=== PATIENT | male | born 1970 | race Caucasian/White ===

== ENCOUNTER 2018-10-22 11:06 | Observation (INO) | payer OTHER ==
[2018-10-22] MEDS ORDERED: ASPIRIN 81 MG PO STA (11:21)
[2018-10-22 11:50] LABS: ALT 43 U/L (21-72); AST 20 U/L (17-59); Albumin 4.2 g/dL (3.5-5.0); Alkaline Phosphatase 100 U/L (38-126); Anion Gap 7 mmol/L; Basophils # (A) 0.1 k/uL (0-0.2); Basophils % (A) 1 %; Blood Urea Nitrogen 12 mg/dL (9-20); Carbon Dioxide 23 mmol/L (22-30); Chloride 109 mmol/L (98-107); Eosinophils # (A) 0.6 k/uL (0-0.7); Eosinophils % (A) 5 %; Glucose 102 mg/dL (74-99); HCT 50.5 % (39.0-53.0); Lymphocytes # (A) 3.6 k/uL (1.0-4.8); Lymphocytes % (A) 31 %; MCH 29.8 pg (25.0-35.0); MCHC 33.7 g/dL (31.0-37.0); MCV 88.3 fL (80.0-100.0); Magnesium 1.9 mg/dL (1.6-2.3); Mean Platelet Volume 8.3; Monocytes # (A) 0.7 k/uL (0-1.0); Monocytes % (A) 6 %; Neutrophils # (A) 6.4 k/uL (1.3-7.7); Neutrophils % (A) 55 %; Platelet Count 296 k/uL (150-450); Potassium 4.2 mmol/L (3.5-5.1); RBC 5.72 m/uL (4.30-5.90); RDW 14.8 % (11.5-15.5); Sodium 139 mmol/L (137-145); Total Bilirubin 0.8 mg/dL (0.2-1.3); Total Protein 6.9 g/dL (6.3-8.2); WBC 11.7 k/uL (3.8-10.6)
[2018-10-22 11:54] LABS: INR 0.9 (<1.2); Prothrombin Time 10.2 sec (9.0-12.0)
[2018-10-22 11:55] LABS: Partial Thromboplastin Time 28.9 sec (22.0-30.0)
--- NOTE | 2018-10-22 12:17 | XR ---
EXAMINATION TYPE: XR chest 2V DATE OF EXAM: 10/22/2018 COMPARISON: NONE HISTORY: Chest pain TECHNIQUE: Frontal and lateral views of the chest are obtained. FINDINGS: There is no focal air space opacity. No evidence for pneumothorax. No pleural effusion. The cardiac silhouette size is within normal limits. The osseous structures are grossly intact. IMPRESSION: 1. No acute cardiopulmonary process.
--- NOTE | 2018-10-22 12:20 | ED ---
Chest Pain HPI - General Source: patient, RN notes reviewed Mode of arrival: ambulatory Limitations: no limitations <Parish Sin - Last Filed: 10/22/18 12:41> <Marcello Pratt - Last Filed: 10/22/18 14:08> - General Chief Complaint: Chest Pain Stated Complaint: chest pain Time Seen by Provider: 10/22/18 11:21 - History of Present Illness Initial Comments: 47-year-old male presents emergency Department chief complaint of chest pain. Patient states his pain started primary yesterday in which it does wax and wane but sharp stabbing type pain in his chest. Patient does have underlying cardiac arrhythmia which she had attempted ablation but was failed. Patient's rn lactation Dr. Gaytan. Patient states he does take medications including Cardizem for his arrhythmia and hypertension. Patient does have a history of hyperlipidemia but has not had her check recent no diabetes. Patient has a strong family history of cardiac disease including 2 brothers that recently passed from (Parish Sin) - Related Data Allergies Allergy/AdvReac Type Severity Reaction Status Date / Time codeine Allergy Nausea & Verified 10/22/18 13:27 Vomiting Review of Systems ROS Other: All systems not noted in ROS Statement are negative. <Parish Sin - Last Filed: 10/22/18 12:41> ROS Other: All systems not noted in ROS Statement are negative. <Marcello Pratt - Last Filed: 10/22/18 14:08> ROS Statement: Those systems with pertinent positive or pertinent negative responses have been documented in the HPI. EKG Findings - EKG Comments: EKG Findings:: EKG performed at 11:20 rate of 61. pr 180 qrs 94 qt/qtc 40-644 <Parish Sin - Last Filed: 10/22/18 12:41> Past Medical History Past Medical History: Hypertension Additional Past Medical History / Comment(s): SVT History of Any Multi-Drug Resistant Organisms: None Reported Past Surgical History: No Surgical Hx Reported Past Psychological History: No Psychological Hx Reported Smoking Status: Current every day smoker Past Alcohol Use History: None Reported Past Drug Use History: None Reported <Parish Sin - Last Filed: 10/22/18 12:41> General Exam Limitations: no limitations General appearance: alert, in no apparent distress Head exam: Present: atraumatic, normocephalic, normal inspection Eye exam: Present: normal appearance, PERRL, EOMI. Absent: scleral icterus, conjunctival injection, periorbital swelling ENT exam: Present: normal exam, normal oropharynx, mucous membranes moist Neck exam: Present: normal inspection, full ROM. Absent: tenderness, meningismus, lymphadenopathy Respiratory exam: Present: normal lung sounds bilaterally. Absent: respiratory distress, wheezes, rales, rhonchi, stridor, chest wall tenderness Cardiovascular Exam: Present: regular rate, normal rhythm, normal heart sounds. Absent: systolic murmur, diastolic murmur, rubs, gallop, clicks GI/Abdominal exam: Present: soft, normal bowel sounds. Absent: distended, tenderness, guarding, rebound, rigid <Parish Sin - Last Filed: 10/22/18 12:41> Course <Marcello Pratt - Last Filed: 10/22/18 14:08> Vital Signs 10/22/18 10/22/18 11:08 12:33 Temperature 97.7 F Pulse Rate 62 58 L Respiratory 20 16 Rate Blood Pressure 141/90 112/72 O2 Sat by Pulse 99 95 Oximetry - Reevaluation(s) Reevaluation #1: 10/22/18 14:07 Case was discussed with KEE Lugo. Chart and results reviewed. Case is also discussed with Dr. eLe, covering for Dr. Venegas, who will admit (Marcello Pratt) Chest Pain [facility] <Parish Sin - Last Filed: 10/22/18 12:41> - MDM 47-year-old male presented from for chest pain. Lab work, EKG and chest x-ray obtained. No acute findings this time though this is concerning for cardiac disease that she's had significant history including family history. (Parish Sin) Disposition <Parish Sin - Last Filed: 10/22/18 12:41> <Marcello Pratt - Last Filed: 10/22/18 14:08> Clinical Impression: Chest pain Disposition: ADMITTED IP TO THIS [facility] Condition: Stable Referrals: Nicolas Venegas MD [Primary Care Provider] - 1-2 days
[2018-10-22] MEDS ORDERED: NITROGLYCERIN SL TABS 0.4 MG TAB SUBLINGUAL PRN (12:42)
[2018-10-22] MEDS ORDERED: HEPARIN SODIUM,PORCINE 5,000 UNIT/ML 1 ML VIAL IV ONE (12:42)
[2018-10-22] MEDS: HEPARIN SOD,PORK IN 0.45% NACL 25,000 UNIT in 0.45% NACL 1 250ML.BAG IV SCH (12:54)
--- NOTE | 2018-10-22 15:10 | P.HPIM ---
History of Present Illness Chief Complaint: Chest pain This is a 47-year-old gentleman with past medical history significant for SVT and hypertension comes in with above-mentioned complaint. The patient says that he's been having chest pain for the past few days which is waxing and waning. He is having starting chest pains when he has them. He says that few days of the chest pain was radiating to his back. Now he does not have any back pain. His chest pain is better he just has some discomfort in his chest. He otherwise does not complain of any radiation of pain to the jaw to the arm, does not complain of any cough or shortness of breath, no abdominal pain, nausea and vomiting, no diaphoresis, no lightheadedness no dizziness, no treatment numbness on his extremities, no itch no rash. He does not complain of any fever, no headache. ER course-patient's vitals were stable except for heart rate which was in 50s and 60s. Labwork was done which showed WBC 11.7 hemoglobin 17 platelets 296 d- dimer 0.24 sodium 139 potassium 4.2 bun 12 creatinine 0.77 GFR more than 90 troponin 0.012. EKG was done and showed normal sinus rhythm. Patient was thus admitted to the hospitalist service a further urology management with cardiology consult Review of Systems All systems: negative Past Medical History Past Medical History: Hypertension Additional Past Medical History / Comment(s): SVT History of Any Multi-Drug Resistant Organisms: None Reported Past Surgical History: No Surgical Hx Reported Past Psychological History: No Psychological Hx Reported Smoking Status: Current every day smoker Past Alcohol Use History: None Reported Past Drug Use History: None Reported Medications and Allergies Home Medications Medication Instructions Recorded Confirmed Type Diltiazem HCl [Cardizem CD] 360 mg PO DAILY 10/22/18 10/22/18 History Lisinopril [Zestril] 10 mg PO DAILY 10/22/18 10/22/18 History Allergies Allergy/AdvReac Type Severity Reaction Status Date / Time codeine Allergy Nausea & Verified 10/22/18 13:27 Vomiting Physical Exam Vitals: Vital Signs Temp Pulse Resp BP Pulse Ox 10/22/18 14:28 56 L 16 113/78 100 10/22/18 12:33 58 L 16 112/72 95 10/22/18 11:08 97.7 F 62 20 141/90 99 Intake and Output 10/22/18 10/22/18 10/22/18 06:59 14:59 22:59 Other: Weight 116.573 kg On exam, alert and oriented x3. HEENT: Conjunctivae normal. eyes normal. NECK: No JVD. No thyroid enlargement. No LNs CARDIOVASCULAR: S1, S2 muffled. No murmur RESPIRATION: Breath sounds diminished in the bases. No rhonchi or crackles. No bronchial breathing. ABDOMEN: Soft, nontender . No guarding. no masses palpable. No ascites, No hepatosplenomegaly.Bowel sounds heard. LEGS: No edema. no swelling NERVOUS SYSTEM: Cranial N 2-12 grossly normal. Moves all 4 limbs. No focal deficits. No sensory deficit. No signs of cerebellar dysfucntion. Skin: no ulcer no rash Joints: No active swelling. No inflammation. Lymphatic system. No LN neck axilla or groin. Results CBC & Chem 7: 10/22/18 11:29 10/22/18 11:29 Labs: Abnormal Lab Results - Last 24 Hours (Table) 10/22/18 10/22/18 Range/Units 11:29 11:29 WBC 11.7 H (3.8-10.6) k/uL Chloride 109 H (98-107) mmol/L Glucose 102 H (74-99) mg/dL Assessment and Plan Assessment: - Chest pain need to rule out cardiac cause - History of SVT - History of hypertension Plan - We'll admit the patient to observation - We'll continue the patient's home medication. Patient wants to take his home medications which is okay - Cardiology consulted - Monitor troponin levels - Patient nothing by mouth after midnight - We'll order for lab work in the morning - Patient is full code Time with Patient: Greater than 30
[2018-10-22 15:14] VITALS: BMI 34.8
[2018-10-22] MEDS ORDERED: DILTIAZEM CD 180 MG CAP.ER.24H PO SCH (21:00)
[2018-10-22] MEDS ORDERED: LISINOPRIL 10 MG TAB PO SCH (21:00)
[2018-10-23 03:14] LABS: Mean Platelet Volume 8.2; Platelet Count 275 k/uL (150-450)
[2018-10-23 03:27] LABS: Cholesterol 147 mg/dL (<200); HDL Cholesterol 38 mg/dL (40-60); LDL Cholesterol,Calculated 96 mg/dL (0-99); Triglycerides 67 mg/dL (<150)
[2018-10-23] MEDS: HEPARIN SOD,PORK IN 0.45% NACL 25,000 UNIT in 0.45% NACL 1 250ML.BAG IV SCH (08:43)
[2018-10-23] MEDS ORDERED: DILTIAZEM CD 180 MG CAP.ER.24H PO SCH (09:00)
[2018-10-23] MEDS ORDERED: ASPIRIN 325 MG TAB PO SCH (09:00)
[2018-10-23] MEDS ORDERED: LISINOPRIL 10 MG TAB PO SCH (09:00)
--- NOTE | 2018-10-23 09:01 | CONS ---
CONSULTATION ATTENDING PHYSICIAN: Dr. Venegas HISTORY OF PRESENT ILLNESS: Mr. Gallegos is a 47-year-old male with history of SVT, has been seen by Dr. Gaytan many years ago, but has not seen him recently, who presented with symptoms of chest discomfort. His discomfort occurred with mental stress and has been going on over the last few days. The discomfort is lasting for few hours at a time and not activity related. He is active physically and has no exertional chest pain. No significant dyspnea. No palpitation. He has mild dizziness. He has rare palpitation with no recurrence of SVT according to him. He has no PND, orthopnea, or peripheral edema. No prior history of obstructive coronary artery disease. His coronary risk factors are remarkable for history of hypertension, chronic tobacco use. He is nondiabetic and no hyperlipidemia. MEDICATION: Medications at home include lisinopril 10 mg daily, and Cardizem CD 360 mg daily. REVIEW OF SYSTEMS: RESPIRATORY system: He has no documented history of asthma, emphysema or bronchitis. GI SYSTEM: No recent GI bleeding. No peptic ulcer disease. SYSTEM: No dysuria or hematuria. NERVOUS SYSTEM: He has a history of seizures as a child but no recurrence. PHYSICAL EXAMINATION: He is a 47-year-old male, alert, oriented, in no apparent distress. Blood pressure 121/70 with a heart rate in the 60s. HEAD: Normocephalic. Eyes sclerae nonicteric. NECK: Good upstroke. No bruit. No jugular venous distention. LUNGS: Clear to auscultation. CARDIOVASCULAR: Heart is regular rate and rhythm S1, S2. No S3. No S4. No murmur or rub. ABDOMEN: Soft, nontender. Positive bowel sounds. No organomegaly. EXTREMITIES: No edema. Intact distal pulses. LAB DATA: Lab data revealed troponin less than 0.012, BUN and creatinine 12 and 0.7, potassium 4.2, cholesterol 147, LDL of 96. EKG revealed sinus mechanism with no acute ST-segment changes. Chest x-ray shows no acute infiltrate. IMPRESSION: 1. Chest discomfort has atypical features for ischemic heart disease probably noncardiac. 2. History of hypertension. 3. Chronic tobacco use. 4. Prior history of supraventricular tachycardia. RECOMMENDATIONS: I will stop the heparin. Obtain echocardiogram with Doppler. Increase his level of activity. If he has no evidence of further symptoms, then he may be able to be discharged home today and undergo a stress test as an outpatient. Thank you for this consult. We will follow with you. MMYGL / IJN: [id number] /
[2018-10-23 12:31] VITALS: BP 116/72; PULSE 48; RESP 18; TEMP 97.8
--- NOTE | 2018-10-23 15:53 | P.DS ---
Providers Date of admission: 10/22/18 12:42 Attending physician: Nile De Luna MD Consults: 10/22/18 12:42 Consult Physician Urgent Consulting Provider: Kirill Gaytan Consult Reason/Comments: chest pain Do you want consulting provider notified?: Yes Primary care physician: Theo Valenzuela [facility] Course: Patient left AGAINST MEDICAL ADVICE Patient Condition at Discharge: Stable Plan - Discharge Summary Discharge Rx Participant: No New Discharge Prescriptions: No Action Lisinopril [Zestril] 10 mg PO HS Diltiazem HCl [Cardizem CD] 360 mg PO HS Discharge Medication List Diltiazem HCl [Cardizem CD] 360 mg PO HS 10/22/18 [History] Lisinopril [Zestril] 10 mg PO HS 10/22/18 [History] Follow up Appointment(s)/Referral(s): Nicolas Venegas MD [Primary Care Provider] - 1-2 days Discharge Disposition: Left Against Medical Advice
== END 2018-10-23 12:15 | disposition left against medical advice (07) ==
LOC: EC 11:06 → 1SOBS 12:42
PROVIDERS: ADMIT Internal Medicine; ATTEND Internal Medicine
DX: R07.89 Other chest pain (principal); I47.1 Supraventricular tachycardia; I10 Essential (primary) hypertension; E78.5 Hyperlipidemia, unspecified; F17.200 Nicotine dependence, unspecified, uncomplicated; Z88.5 Allergy status to narcotic agent; Z79.899 Other long term (current) drug therapy; Z82.49 Family history of ischemic heart disease and other diseases of the circulatory system; Z53.21 Procedure and treatment not carried out due to patient leaving prior to being seen by health care provider
CPT/HCPCS: 96366 ×3; 96376; 96365; 99285; 36415; 93005; 85379; 80061; 80053; 83735; 84484; 85025; 85049; 85610; 85730 ×2; 71046; G0378 ×2; J1644 ×2

== ENCOUNTER 2020-01-11 07:24 | Emergency (ER) | payer OTHER ==
[2020-01-11] MEDS ORDERED: MECLIZINE 25 MG TAB PO STA (07:51)
[2020-01-11] MEDS ORDERED: DIAZEPAM 5 MG/ML 2 ML INJ IVP STA (07:51)
[2020-01-11 08:28] LABS: Basophils # (A) 0.1 k/uL (0-0.2); Basophils % (A) 1 %; Eosinophils # (A) 0.6 k/uL (0-0.7); Eosinophils % (A) 5 %; HCT 51.6 % (39.0-53.0); HGB 17.1 gm/dL (13.0-17.5); Lymphocytes # (A) 2.8 k/uL (1.0-4.8); Lymphocytes % (A) 22 %; MCH 30.8 pg (25.0-35.0); MCHC 33.2 g/dL (31.0-37.0); MCV 92.7 fL (80.0-100.0); Mean Platelet Volume 8.2; Monocytes # (A) 0.7 k/uL (0-1.0); Monocytes % (A) 6 %; Neutrophils # (A) 8.2 k/uL (1.3-7.7); Neutrophils % (A) 65 %; Platelet Count 265 k/uL (150-450); RBC 5.57 m/uL (4.30-5.90); RDW 13.7 % (11.5-15.5); WBC 12.6 k/uL (3.8-10.6)
[2020-01-11 08:37] LABS: Prothrombin Time 9.9 sec (9.0-12.0)
[2020-01-11 08:43] LABS: ALT 32 U/L (4-49); AST 25 U/L (17-59); African American GFR (CKD) >90 (>60 ml/min/1.73 sqM); Albumin 4.2 g/dL (3.5-5.0); Alkaline Phosphatase 101 U/L (38-126); Anion Gap 7 mmol/L; Blood Urea Nitrogen 14 mg/dL (9-20); Carbon Dioxide 25 mmol/L (22-30); Chloride 106 mmol/L (98-107); Glucose 109 mg/dL (74-99); Magnesium 2.2 mg/dL (1.6-2.3); Non-African American GFR(CKD) >90 (>60 ml/min/1.73 sqM); Potassium 4.9 mmol/L (3.5-5.1); Sodium 138 mmol/L (137-145); Total Bilirubin 0.8 mg/dL (0.2-1.3); Total Protein 6.8 g/dL (6.3-8.2)
--- NOTE | 2020-01-11 08:51 | CT ---
EXAMINATION TYPE: CT brain wo con DATE OF EXAM: 01/11/2020 COMPARISON: None HISTORY: Vertigo, Confusion CT DLP: 1099.[address] of the brain was performed. The ventricles, basal cisterns and sulci overlying the cerebral convexities demonstrate a normal appe arance. There is no evidence for intracranial hemorrhage or sulcal effacement. No mass effects are seen. Osseous calvarium is intact. If symptoms persist consider MRI as clinically warranted. IMPRESSION: 1. No acute intracranial process is seen at this time.
--- NOTE | 2020-01-11 08:54 | XR ---
EXAMINATION TYPE: XR chest 2V DATE OF EXAM: 01/11/2020 COMPARISON: 10/22/2018 HISTORY: Chest pain TECHNIQUE: Frontal and lateral views of the chest are obtained. FINDINGS: There is no focal air space opacity. No evidence for pneumothorax. No pleural effusion. The cardiac silhouette size is within normal limits. The osseous structures are grossly intact. IMPRESSION: 1. No acute cardiopulmonary process.
--- NOTE | 2020-01-11 08:56 | ED ---
General Adult HPI - General Chief complaint: Dizziness Stated complaint: dizzy,high heart rate Time Seen by Provider: 01/11/20 07:25 Source: patient, RN notes reviewed, old records reviewed Mode of arrival: wheelchair Limitations: no limitations - History of Present Illness Initial comments: This is a 49-year-old male who presents emergency Department with a past medical history significant for vertigo. Patient comes in today stating everything is spinning around since last night about 8:00 when he got up out of a chair and walked outside. Patient states sitting still with his eyes closed decreases his symptoms significantly. Patient states she's been a little nauseated but has had no vomiting. Patient denies any headache patient denies numbness weakness per patient denies any palpitations difficult breathing or shortness of breath. Patient denies any chest pain. Patient denies any recent fever or chills. Patient denies any abdominal pain. - Related Data Home Medications Medication Instructions Recorded Confirmed Diltiazem HCl [Cardizem CD] 360 mg PO HS 10/22/18 01/11/20 Lisinopril [Zestril] 10 mg PO HS 10/22/18 01/11/20 Allergies Allergy/AdvReac Type Severity Reaction Status Date / Time codeine Allergy Nausea & Verified 01/11/20 08:31 Vomiting Review of Systems ROS Statement: Those systems with pertinent positive or pertinent negative responses have been documented in the HPI. ROS Other: All systems not noted in ROS Statement are negative. Past Medical History Past Medical History: Hypertension Additional Past Medical History / Comment(s): SVT History of Any Multi-Drug Resistant Organisms: None Reported Past Surgical History: No Surgical Hx Reported Additional Past Surgical History / Comment(s): EP study-unable to ablate, blad jossue neck surgery. Past Anesthesia/Blood Transfusion Reactions: No Reported Reaction Past Psychological History: No Psychological Hx Reported Smoking Status: Current every day smoker Past Alcohol Use History: None Reported Past Drug Use History: None Reported - Past Family History Father Family Medical History: COPD, Diabetes Mellitus, Eye Disorder Additional Family Medical History / Comment(s): Heart problems, vision problems, polio Mother Additional Family Medical History / Comment(s): Heart problems. General Exam - General Exam Comments Initial Comments: GENERAL: Patient is well-developed and well-nourished. Patient is nontoxic and well- hydrated and is in no acute distress. ENT: Neck is soft and supple. No significant lymphadenopathy is noted. Oropharynx is clear. Moist mucous membranes. Neck has full range of motion without eliciting any pain. EYES: The sclera were anicteric and conjunctiva were pink and moist. Extraocular movements were intact and pupils were equal round and reactive to light. Eyelids were unremarkable. PULMONARY: Unlabored respirations. Good breath sounds bilaterally. No audible rales rhonchi or wheezing was noted. CARDIOVASCULAR: Patient is bradycardic at about 50 bpm ABDOMEN: Soft and nontender with normal bowel sounds. SKIN: Skin is clear with no lesions or rashes and otherwise unremarkable. NEUROLOGIC: Patient is alert and oriented x3. Cranial nerves II through XII are grossly intact. Motor and sensory are also intact. Normal speech, volume and content. Symmetrical smile. MUSCULOSKELETAL: Normal extremities with adequate strength and full range of motion. LYMPHATICS: No significant lymphadenopathy is noted PSYCHIATRIC: Normal psychiatric evaluation. Limitations: no limitations Course Vital Signs 01/11/20 01/11/20 01/11/20 07:26 07:41 08:26 Temperature 97.4 F L Pulse Rate 54 L 51 L Respiratory 18 18 16 Rate Blood Pressure 127/79 112/70 O2 Sat by Pulse 99 98 Oximetry 01/11/20 09:00 Temperature Pulse Rate 45 L Respiratory 16 Rate Blood Pressure 104/69 O2 Sat by Pulse 98 Oximetry Medical Decision Making - Medical Decision Making EKG shows sinus bradycardia 51 bpm DC interval 290 QRS is 90 QT interval 440 QTC is 405. Patient's EKG shows no ST segment elevation or depression. Chest x-ray shows no acute abnormality. CT of the brain shows no acute abnormality. Patient received Valium and Antivert while in the emergency department and his symptoms improved slightly. - Lab Data Result diagrams: 01/11/20 08:23 01/11/20 08:23 Lab Results 01/11/20 01/11/20 01/11/20 Range/Units 08:23 08:23 08:23 WBC 12.6 H (3.8-10.6) k/uL RBC 5.57 (4.30-5.90) m/uL Hgb 17.1 (13.0-17.5) gm/dL Hct 51.6 (39.0-53.0) % MCV 92.7 (80.0-100.0) fL MCH 30.8 (25.0-35.0) pg MCHC 33.2 (31.0-37.0) g/dL RDW 13.7 (11.5-15.5) % Plt Count 265 (150-450) k/uL Neutrophils % 65 % Lymphocytes % 22 % Monocytes % 6 % Eosinophils % 5 % Basophils % 1 % Neutrophils # 8.2 H (1.3-7.7) k/uL Lymphocytes # 2.8 (1.0-4.8) k/uL Monocytes # 0.7 (0-1.0) k/uL Eosinophils # 0.6 (0-0.7) k/uL Basophils # 0.1 (0-0.2) k/uL PT 9.9 (9.0-12.0) sec INR 1.0 (<1.2) APTT 28.0 (22.0-30.0) sec Sodium 138 (137-145) mmol/L Potassium 4.9 (3.5-5.1) mmol/L Chloride 106 (98-107) mmol/L Carbon Dioxide 25 (22-30) mmol/L Anion Gap 7 mmol/L BUN 14 (9-20) mg/dL Creatinine 0.87 (0.66-1.25) mg/dL Est GFR (CKD-EPI)AfAm >90 (>60 ml/min/1.73 sqM) Est GFR (CKD-EPI)NonAf >90 (>60 ml/min/1.73 sqM) Glucose 109 H (74-99) mg/dL Calcium 9.0 (8.4-10.2) mg/dL Magnesium 2.2 (1.6-2.3) mg/dL Total Bilirubin 0.8 (0.2-1.3) mg/dL AST 25 (17-59) U/L ALT 32 (4-49) U/L Alkaline Phosphatase 101 (38-126) U/L Troponin I (0.000-0.034) ng/mL Total Protein 6.8 (6.3-8.2) g/dL Albumin 4.2 (3.5-5.0) g/dL 01/11/20 Range/Units 08:23 WBC (3.8-10.6) k/uL RBC (4.30-5.90) m/uL Hgb (13.0-17.5) gm/dL Hct (39.0-53.0) % MCV (80.0-100.0) fL MCH (25.0-35.0) pg MCHC (31.0-37.0) g/dL RDW (11.5-15.5) % Plt Count (150-450) k/uL Neutrophils % % Lymphocytes % % Monocytes % % Eosinophils % % Basophils % % Neutrophils # (1.3-7.7) k/uL Lymphocytes # (1.0-4.8) k/uL Monocytes # (0-1.0) k/uL Eosinophils # (0-0.7) k/uL Basophils # (0-0.2) k/uL PT (9.0-12.0) sec INR (<1.2) APTT (22.0-30.0) sec Sodium (137-145) mmol/L Potassium (3.5-5.1) mmol/L Chloride (98-107) mmol/L Carbon Dioxide (22-30) mmol/L Anion Gap mmol/L BUN (9-20) mg/dL Creatinine (0.66-1.25) mg/dL Est GFR (CKD-EPI)AfAm (>60 ml/min/1.73 sqM) Est GFR (CKD-EPI)NonAf (>60 ml/min/1.73 sqM) Glucose (74-99) mg/dL Calcium (8.4-10.2) mg/dL Magnesium (1.6-2.3) mg/dL Total Bilirubin (0.2-1.3) mg/dL AST (17-59) U/L ALT (4-49) U/L Alkaline Phosphatase (38-126) U/L Troponin I <0.012 (0.000-0.034) ng/mL Total Protein (6.3-8.2) g/dL Albumin (3.5-5.0) g/dL Disposition Clinical Impression: Vertigo Disposition: HOME SELF-CARE Condition: Good Instructions (If sedation given, give patient instructions): Vertigo (ED) Is patient prescribed a controlled substance at d/c from ED?: No Referrals: Nicolas Venegas MD [Primary Care Provider] - 1-2 days Time of Disposition: 10:03
[2020-01-11 10:39] VITALS: BP 100/72; PULSE 48; RESP 18; TEMP 96.8
== END 2020-01-11 09:48 | disposition home or self-care (01) ==
LOC: EC 07:24
DX: R42 Dizziness and giddiness (principal); R11.0 Nausea; R00.1 Bradycardia, unspecified; I10 Essential (primary) hypertension; I47.1 Supraventricular tachycardia; F17.200 Nicotine dependence, unspecified, uncomplicated; Z79.899 Other long term (current) drug therapy; Z88.5 Allergy status to narcotic agent
CPT/HCPCS: 36415; 93005; 80053; 83735; 84484; 85025; 85610; 85730; 71046; 70450; 99285; 96374; J3360

== ENCOUNTER 2020-10-14 15:54 | Inpatient (IN) | payer OTHER ==
[2020-10-14] MEDS ORDERED: HEPARIN SODIUM 1,000 UN/ML (10ML VL) IV ONE (16:08)
[2020-10-14] MEDS ORDERED: ASPIRIN 81 MG PO STA (16:08)
[2020-10-14] MEDS ORDERED: SODIUM CHLORIDE 0.9% 1,000 ML IV ONE (16:18)
[2020-10-14 16:21] LABS: Basophils # (A) 0.2 k/uL (0-0.2); Basophils % (A) 1 %; Eosinophils # (A) 0.6 k/uL (0-0.7); Eosinophils % (A) 3 %; HCT 48.3 % (39.0-53.0); Lymphocytes # (A) 4.2 k/uL (1.0-4.8); Lymphocytes % (A) 21 %; MCH 30.6 pg (25.0-35.0); MCHC 35.3 g/dL (31.0-37.0); MCV 86.7 fL (80.0-100.0); Mean Platelet Volume 8.5; Monocytes # (A) 1.1 k/uL (0-1.0); Monocytes % (A) 6 %; Neutrophils # (A) 13.3 k/uL (1.3-7.7); Neutrophils % (A) 68 %; Platelet Count 283 k/uL (150-450); RBC 5.57 m/uL (4.30-5.90); RDW 13.4 % (11.5-15.5); WBC 19.7 k/uL (3.8-10.6)
--- NOTE | 2020-10-14 16:25 | ED ---
Chest Pain HPI - General Chief Complaint: Chest Pain Stated Complaint: Chest pain Source: patient Mode of arrival: wheelchair Limitations: no limitations - History of Present Illness Initial Comments: Patient is a 49-year-old male with past medical history of SVT and failed ablation who presents to emergency room with reported chest pain. States that he was cutting the grass approximately 40 minutes ago when he began having chest pain. States that it is left-sided and radiates into his left arm. Describes it as a crushing chest pain graded 10 out of 10. He attempted to take him nitro at home without improvement in his symptoms. Has associated shortness of breath. No ripping or tearing sensation to his back. Denies any numbness or tingling. No previous history of coronary disease. States that his catheterization was greater than 10 years ago. Patient also began having fevers, chills and cough on the sixth of this month. He tested positive for covid on the eighth. Patient is not on any blood thinners. Denies any contra indication to blood thinners. No recent head trauma. No other alleviating, precipitating or modifying factors - Related Data Home Medications Medication Instructions Recorded Confirmed Albuterol Sulfate [Ventolin HFA] 1 - 2 puff INHALATION RT-Q6H PRN 10/14/20 10/14/20 Diltiazem Cd [Cardizem Cd] 300 mg PO HS 10/14/20 10/14/20 Fluticasone Propionate [Flovent 1 puff INHALATION RT-BID 10/14/20 10/14/20 Diskus] SUMAtriptan succinate [Imitrex] 50 mg PO DAILY PRN 10/14/20 10/14/20 Sertraline [Zoloft] 100 mg PO HS 10/14/20 10/14/20 clonazePAM [KlonoPIN] 1 mg PO Q12H PRN 10/14/20 10/14/20 Allergies Allergy/AdvReac Type Severity Reaction Status Date / Time codeine Allergy Nausea & Verified 10/14/20 15:59 Vomiting Review of Systems ROS Statement: Those systems with pertinent positive or pertinent negative responses have been documented in the HPI. ROS Other: All systems not noted in ROS Statement are negative. Past Medical History Past Medical History: Hypertension Additional Past Medical History / Comment(s): SVT History of Any Multi-Drug Resistant Organisms: None Reported Past Surgical History: No Surgical Hx Reported Additional Past Surgical History / Comment(s): EP study-unable to ablate, bladder neck surgery. Past Anesthesia/Blood Transfusion Reactions: No Reported Reaction Past Psychological History: No Psychological Hx Reported Smoking Status: Current every day smoker Past Alcohol Use History: None Reported Past Drug Use History: None Reported - Past Family History Father Family Medical History: COPD, Diabetes Mellitus, Eye Disorder Additional Family Medical History / Comment(s): Heart problems, vision problems, polio Mother Additional Family Medical History / Comment(s): Heart problems. General Exam Limitations: no limitations Course Vital Signs 10/14/20 10/14/20 15:55 16:15 Temperature 98.0 F Pulse Rate 65 74 Respiratory 18 21 Rate Blood Pressure 112/70 118/81 O2 Sat by Pulse 95 95 Oximetry - Reevaluation(s) Reevaluation #1: 10/14/20 16:05 EKG performed Reevaluation #2: Spoke with Dr. Loredo and warehouse laborer 3 is ready for the patient 10/14/20 16:11 Chest Pain MDM - MDM Upon arrival patient was placed into room 8. There are history of physical exam was performed. IV is established. 12-lead EKG was performed which demonstrates an acute STEMI. ST elevation in V2 through V6 as well as one in aVL. Reciprocal changes in 2, 3 and aVF. Patient was given 4000 units of heparin and 4-81 mg aspirins. Laboratory studies were obtained. I did speak with Dr. Loredo at 16:10. lab head ready for the patient at 1611. Patient taken to floor in stable condition with guarded prognosis. Spoke with Dr. Monique in regards to the admission Disposition Clinical Impression: Chest pain, ST elevation myocardial infarction (STEMI) Disposition: ADMITTED IP TO THIS HOSP Condition: Serious Is patient prescribed a controlled substance at d/c from ED?: No Referrals: Praneeth Mcneill MD [Primary Care Provider] - 1-2 days Decision to Admit Reason: Admit from EC Decision Date: 10/14/20 Decision Time: 16:25
[2020-10-14] MEDS ORDERED: VERAPAMIL 2.5 MG/ML 2 ML AMP ONE (16:27)
[2020-10-14] MEDS ORDERED: LIDOCAINE 1% INJ 10MG/ML (20 ML MDV) ONE (16:27)
[2020-10-14] MEDS ORDERED: NALOXONE 0.4 MG/ML 1 ML VIAL IV PRN (16:29)
[2020-10-14 16:32] LABS: ALT 26 U/L (4-49); AST 26 U/L (17-59); African American GFR (CKD) >90 (>60 ml/min/1.73 sqM); Albumin 3.9 g/dL (3.5-5.0); Alkaline Phosphatase 117 U/L (38-126); Anion Gap 8 mmol/L; Blood Urea Nitrogen 13 mg/dL (9-20); Calcium 9.5 mg/dL (8.4-10.2); Carbon Dioxide 22 mmol/L (22-30); Chloride 107 mmol/L (98-107); Glucose 111 mg/dL (74-99); Magnesium 1.6 mg/dL (1.6-2.3); Non-African American GFR(CKD) >90 (>60 ml/min/1.73 sqM); Potassium 3.7 mmol/L (3.5-5.1); Sodium 137 mmol/L (137-145); Total Bilirubin 0.7 mg/dL (0.2-1.3); Total Protein 6.6 g/dL (6.3-8.2)
[2020-10-14] MEDS ORDERED: LIDOCAINE 1% INJ 10MG/ML (20 ML MDV) SQ ONE (16:33)
[2020-10-14] MEDS ORDERED: MIDAZOLAM 2 MG/2 ML VIAL IV ONE (16:33)
[2020-10-14] MEDS ORDERED: fentaNYL (PF) 50 MCG/ML 2 ML AMP ONE (16:33)
[2020-10-14] MEDS ORDERED: fentaNYL (PF) 50 MCG/ML 2 ML AMP IV ONE (16:34)
[2020-10-14] MEDS ORDERED: VERAPAMIL SYRINGE (5 MG/10 ML) INTRAARTER ONE (16:35)
[2020-10-14] MEDS: HEPARIN SODIUM 1,000 UN/ML (10ML VL) IV ONE ×2 (16:39→17:30)
[2020-10-14] MEDS ORDERED: TICAGRELOR 90 MG TAB ONE (16:40)
[2020-10-14 16:42] LABS: D-Dimer 0.72 mg/L FEU (<0.60); Partial Thromboplastin Time 23.5 sec (22.0-30.0); Prothrombin Time 10.6 sec (9.0-12.0)
[2020-10-14] MEDS ORDERED: TICAGRELOR 90 MG TAB PO ONE (16:43)
[2020-10-14] MEDS ORDERED: IOPAMIDOL-370 125ML BTL INJ ONE (16:49)
[2020-10-14] MEDS ORDERED: IOPAMIDOL-370 100ML BTL INJ ONE ×2 (17:13→17:27)
[2020-10-14] MEDS ORDERED: RX INFO: IV CONTRAST WAS GIVEN 1 EACH MISC MISCELLANE PRN (17:44)
[2020-10-14] MEDS ORDERED: NITROGLYCERIN SL TABS 0.4 MG TAB SUBLINGUAL PRN (17:44)
[2020-10-14] MEDS ORDERED: ATROPINE SULFATE 0.1 MG/ML 10ML SYRINGE IV PRN (17:44)
[2020-10-14] MEDS ORDERED: MAG HYDROX/AL HYDROX/SIMETH 30 ML CUP PO PRN (17:44)
[2020-10-14] MEDS ORDERED: ZOLPIDEM 5 MG TAB PO PRN (17:44)
[2020-10-14] MEDS ORDERED: SODIUM CHLORIDE 0.9% 1,000 ML IV SCH (17:45)
--- NOTE | 2020-10-14 19:37 | CC ---
CARDIAC CATHETERIZATION REPORT Mr. Gallegos is a 49-year-old male with known history of chronic tobacco use, hypertension, history of SVT who presented with acute onset ST-segment elevation in the anterior leads. He had Covid diagnosed about 10 days ago. In view of his presentation, recommendation made regarding cardiac catheterization. The procedure as well as the risks and the complications were discussed with the patient who is in full understanding and agreement. PROCEDURE DETAILS: Patient was brought to the lab support service tech in the semi-sedated state after receiving fentanyl and Benadryl and achieving moderate conscious sedated state. Using Xylocaine anesthesia and Seldinger technique, a 6-Lithuanian sheath was introduced in the right radial artery. Left coronary angiography performed using 6-L[place]ian FL 3.5 guiding catheter. After obtaining images of the left coronary system and performing angioplasty and stenting of the left anterior descending coronary artery, a 5-Lithuanian 3.5 bend right Pranav catheter was introduced in the system and images of the right coronary artery were performed. Following that, a 5-L[place]uanian tight pigtail catheter was left ventricle and pressures were calculated. Following that, catheter and sheath were removed. Hemostasis was obtained with deployment TR band. There was no immediate complication. Patient is returned to his room in stable condition. There was no immediate complication. FINDINGS: LEFT MAIN: This is a large-sized vessel, bifurcating into left circumflex, left anterior descending artery, left main coronary artery has no evidence of high-grade stenosis. LEFT ANTERIOR DESCENDING ARTERY: This vessel gives rise to a large diagonal branch in the proximal segment at the first septal pulmonary nurse practitioner takeoff and subsequently the vessel is totally occluded with no antegrade flow. LEFT CIRCUMFLEX: This is a large nondominant vessel giving rise to 3 obtuse marginal branches. The left circumflex as well as branches have no evidence of obstructive coronary artery disease. RIGHT CORONARY ARTERY: This is a large dominant vessel bifurcating distally into PDA and posterolateral segment and branches. The right coronary artery and branches have no evidence of obstructive coronary artery disease. LEFT VENTRICULOGRAM: Left ventriculogram was not performed. HEMODYNAMICS: There was no gradient across the aortic valve. The left ventricle end-diastolic pressure was 14-18 mmHg. CONCLUSION: 1. Acutely occluded left anterior descending artery. 2. Right dominance. RECOMMENDATION: In view of findings and anatomy, I recommend proceeding with angioplasty and stenting of the LAD. The procedure as well as the risks and the complications were discussed with the patient who is in full understanding and agreement. MMODL / IJN: [id number] /
--- NOTE | 2020-10-14 19:42 | PTCA ---
PERCUTANEOUSTRANS CORORONARY ANGIOGRAPHY Mr. Gallegos is a 49-year-old male with known history of chronic tobacco use, hypertension, history of SVT, who presented with an acute anterior myocardial infarction, underwent cardiac catheterization and was found to have a totally occluded LAD. In view of that, recommendation was made regarding angioplasty and stenting. The procedure as well as the risks and the complications were discussed with the patient who is in full understanding and agreement. PROCEDURE DESCRIPTION: Using the 6-[place] FL 3.5 guiding catheter a 0.014 balanced medium weight J-wire with the help of FineCross microcatheter were used to cross the total occlusion, positioned the wire distally. Subsequently 2.5 x 12 mm Trek balloon was advanced and multiple inflations at 10 atmospheres were done. Following that, the balloon was removed and an export catheter was advanced and 1 run was done with removal of thrombotic material. Following that, another 0.014 balanced medium weight J-wire was advanced in the system, positioned in the diagonal branch. Subsequently a 3.0 x 12 mm NC Trek balloon was then advanced and 2 inflations at 10 atmospheres were done. Following that, the balloon was removed. A 3.5 x 23 mm Xience Mary stent was deployed, it was dilated at 16 atmospheres. After removing the balloon, the wire of the diagonal branch was removed. Subsequently, a 4.0 x 8 mm NC Trek balloon was advanced and multiple inflations at a maximum of 12 atmospheres were done. After the last inflation, after appropriate wait, the balloon and the guidewire were withdrawn back in the guiding catheter. Images were obtained and repeated. Those images reveal stable successful stenting. At that point, the guiding catheter, the balloon and the guidewire were removed. Images of the right coronary system and left ventricular end-diastolic pressure were measured. Following that, catheter and sheath were removed. Hemostasis was obtained with deployment of a TR band. There was no immediate complication. Patient is returned to his room in stable condition. Of note, the patient had resolution of his ST-segment elevation and resolution of chest pain at the end procedure. He received an oral loading dose of Brilinta as well as 4000 units of intravenous heparin in addition to what he received in the emergency room. His ACT was followed. RESULTS: Successful stenting of the proximal and mid LAD with reduction of stenosis from 100% to 0%. RECOMMENDATION: Patient will be continued on aspirin, Brilinta, beta blockers, ryan inhibitors and statin. The importance of dual antiplatelet treatment were discussed with the patient and his family and they are in full understanding and agreement. Duration of sedation 62 minutes. MMYGL / IJN: [id number] /
[2020-10-14] MEDS ORDERED: POTASSIUM CHLORIDE ER 20 MEQ TAB.ER PO STA (20:57)
[2020-10-14] MEDS: ATORVASTATIN 80 MG TAB PO SCH (21:19)
[2020-10-14] MEDS: MAGNESIUM SULFATE-D5W PMX 1 GM in DEXTROSE/WATER 1 100ML.BAG IVPB SCH ×2 (21:19→22:45)
[2020-10-14] MEDS: METOPROLOL TARTRATE 25 MG TAB PO SCH (21:19)
[2020-10-14] MEDS: TICAGRELOR 90 MG TAB PO SCH (21:19)
[2020-10-15 04:27] LABS: Basophils # (A) 0.1 k/uL (0-0.2); Basophils % (A) 1 %; Eosinophils # (A) 0.6 k/uL (0-0.7); Eosinophils % (A) 4 %; HCT 47.3 % (39.0-53.0); HGB 15.5 gm/dL (13.0-17.5); Lymphocytes # (A) 3.1 k/uL (1.0-4.8); Lymphocytes % (A) 20 %; MCH 29.5 pg (25.0-35.0); MCHC 32.8 g/dL (31.0-37.0); MCV 89.8 fL (80.0-100.0); Mean Platelet Volume 8.4; Monocytes # (A) 1.1 k/uL (0-1.0); Monocytes % (A) 7 %; Neutrophils # (A) 10.3 k/uL (1.3-7.7); Neutrophils % (A) 66 %; Platelet Count 272 k/uL (150-450); RBC 5.26 m/uL (4.30-5.90); RDW 14.3 % (11.5-15.5); WBC 15.5 k/uL (3.8-10.6)
[2020-10-15 04:44] LABS: African American GFR (CKD) >90 (>60 ml/min/1.73 sqM); Anion Gap 7 mmol/L; Blood Urea Nitrogen 11 mg/dL (9-20); Calcium 8.5 mg/dL (8.4-10.2); Carbon Dioxide 25 mmol/L (22-30); Chloride 106 mmol/L (98-107); Glucose 114 mg/dL (74-99); Magnesium 2.3 mg/dL (1.6-2.3); Non-African American GFR(CKD) >90 (>60 ml/min/1.73 sqM); Potassium 4.1 mmol/L (3.5-5.1); Sodium 138 mmol/L (137-145)
[2020-10-15 06:19] LABS: Cholesterol 170 mg/dL (<200); HDL Cholesterol 27 mg/dL (40-60); LDL Cholesterol,Calculated 118 mg/dL (0-99); Triglycerides 126 mg/dL (<150)
[2020-10-15] MEDS: TICAGRELOR 90 MG TAB PO SCH ×2 (09:21→20:07)
[2020-10-15] MEDS: SPIRONOLACTONE 25 MG TAB PO SCH (09:21)
[2020-10-15] MEDS: METOPROLOL TARTRATE 25 MG TAB PO SCH ×2 (09:21→20:07)
[2020-10-15] MEDS: ASPIRIN 81 MG PO SCH (09:21)
--- NOTE | 2020-10-15 10:27 | P.PN ---
Subjective HISTORY OF PRESENTING ILLNESS This is a pleasant 49-year-old male past medical history significant for chronic nicotine dependence, obstructive sleep apnea, hypertension, history of SVT, recent Covid-19 diagnosed on October 04. He follows in the office with Dr. Loredo. We have been asked to see in consultation for acute ST segment elevation in anterior leads. Yesterday patient presented to the emergency department. with complaints of chest pain, left-sided and radiating to his left arm he took a nitro at home without any improvement in symptoms. Associated shortness of breath. Denies history of diabetes or coronary artery disease.EKG revealed ST elevation in anterior leads. Patient underwent cardiac catheterization and PCI proximal and mid LAD yesterday on 10/14/[address] Loredo. Patient is seen and examined in the ICU. Alert and oriented x 3. States his chest pain has resolved. Denies shortness of breath, palpitations, chest pain. Laboratory data reviewed, Troponin 6-->15.2. WBC 15.5, hemoglobin 15.5, platelets 272, sodium 138, potassium 4.1, serum creatinine 0.71, BUN/creatinine 11, triglycerides 126, cholesterol 170, LDL 118, HDL 27. Vital signs blood pressure 116/74, heart rate 62, afebrile, oxygen saturation is 95% on 2 L nasal cannula. Telemetry tracings indicate sinus mechanism HR 60sCurrently being homar ntained on cardiac medications include aspirin 81 mg daily, atorvastatin 80 mg nightly, lisinopril 2.5 mg daily, metoprolol titrate 25 mg twice daily, spironolactone 25 mg daily, Brilinta 90 mg twice a day PHYSICAL EXAMINATION CONSTITUTIONAL: No apparent distress. HEENT: Head is normocephalic. Pupils are equal, round.No JVD. No carotid bruit. CHEST EXAMINATION: Lungs are clear to auscultation. No chest wall tenderness is noted on palpation or with deep breathing. HEART EXAMINATION: Regular rate and rhythm. S1, S2 heard. No murmurs, gallops or rub. ABDOMEN: Soft, nontender. Positive bowel sounds. EXTREMITIES: 2+ peripheral pulses, no lower extremity edema and no calf tenderness. NEUROLOGIC EXAMINATION: Patient is awake, alert and oriented x3. ASSESSMENT STEMI s/p PIC proximal and mid LAD History of Hypertension History SVT s/p ablation Nicotine dependence PLAN -Continue aspirin, Brilinta, metoprolol tartrate, atorvastatin -2D echo ordered will follow up on results -Continue sprionolactone and lisinopril -Continue cardiac telemetry -Smoking cessation was discussed and encouraged with patient -Patient will transfer to cardiac step down unit when bed available. Nurse Practitioner note has been reviewed, I agree with a documented findings and plan of care. Patient was seen and examined. Objective - Vital Signs Vital signs: Vital Signs Temp 98.2 F 10/15/20 04:00 Pulse 61 10/15/20 06:00 Resp 17 10/15/20 06:00 BP 124/80 10/15/20 06:00 Pulse Ox 96 10/15/20 06:00 Intake & Output 10/14/20 10/14/20 10/15/20 06:59 18:59 06:59 Intake Total 175 950 Output Total 475 575 Balance -300 375 Weight 108.862 kg 79.3 kg Intake: IV 175 875 Magnesium Sulfate-D5w Pmx 200 1 gm In Dextrose/Water 1 100ml.bag @ 100 mls/hr IVPB Q1H [facility] Rx#: [id number] Sodium Chloride 0.9% 1, 75 675 000 ml @ 75 mls/hr IV . [id number] [facility] Rx#:[id number] Intake, IV Titration 75 Amount Sodium Chloride 0.9% 1, 75 000 ml @ 75 mls/hr IV . [id number] [facility] Rx#:[id number] Output: Urine 475 575 Other: Voiding Method Urinal Urinal - Labs CBC & Chem 7: 10/15/20 03:50 10/15/20 03:50 Labs: Abnormal Lab Results - Last 24 Hours (Table) 10/14/20 10/14/20 10/14/20 Range/Units 16:10 16:10 16:10 WBC 19.7 H (3.8-10.6) k/uL Neutrophils # 13.3 H (1.3-7.7) k/uL Monocytes # 1.1 H (0-1.0) k/uL D-Dimer 0.72 H (<0.60) mg/L FEU Glucose 111 H (74-99) mg/dL Plasma Lactic Acid King (0.7-2.0) mmol/L Troponin I (0.000-0.034) ng/mL LDL Cholesterol, Calc (0-99) mg/dL HDL Cholesterol (40-60) mg/dL 10/14/20 10/14/20 10/14/20 Range/Units 16:10 19:21 19:21 WBC (3.8-10.6) k/uL Neutrophils # (1.3-7.7) k/uL Monocytes # (0-1.0) k/uL D-Dimer (<0.60) mg/L FEU Glucose (74-99) mg/dL Plasma Lactic Acid King 2.6 H* 2.2 H* (0.7-2.0) mmol/L Troponin I 6.000 H* (0.000-0.034) ng/mL LDL Cholesterol, Calc (0-99) mg/dL HDL Cholesterol (40-60) mg/dL 10/14/20 10/15/20 10/15/20 Range/Units 22:23 03:50 03:50 WBC 15.5 H (3.8-10.6) k/uL Neutrophils # 10.3 H (1.3-7.7) k/uL Monocytes # 1.1 H (0-1.0) k/uL D-Dimer (<0.60) mg/L FEU Glucose 114 H (74-99) mg/dL Plasma Lactic Acid King (0.7-2.0) mmol/L Troponin I 15.200 H* (0.000-0.034) ng/mL LDL Cholesterol, Calc 118 H (0-99) mg/dL HDL Cholesterol 27 L (40-60) mg/dL
--- NOTE | 2020-10-15 11:00 | ECHOF ---
Referral Reason:dc MEASUREMENTS -------- HEIGHT: 180.3 cm WEIGHT: 78.9 kg BP: 116/74 RVIDd: 3.0 cm (< 3.3) IVSd: 1.2 cm (0.6 - 1.1) LVIDd: 4.9 cm (3.9 - 5.3) LVPWd: 1.2 cm (0.6 - 1.1) IVSs: 1.7 cm LVIDs: 3.3 cm LVPWs: 1.7 cm LA Diam: 3.6 cm (2.7 - 3.8) LAESV Index (A-L): 17.49 ml/m Ao Diam: 3.9 cm (2.0 - 3.7) AV Cusp: 2.5 cm (1.5 - 2.6) MV EXCURSION: 24.599 mm (> 18.000) MV EF SLOPE: 180 mm/s (70 - 150) EPSS: 1.2 cm MV E Benjamín: 0.80 m/s MV DecT: 231 ms MV A Benjamín: 0.53 m/s MV E/A Ratio: 1.50 FINDINGS -------- Sinus rhythm. This was a technically adequate study. The left ventricular size is normal. There is borderline concentric left ventricular hypertrophy. Overall left ventricular systolic function is moderately impaired with, an EF between 35 - 40 %. A pical anterior LV wall motion is hypokinetic. Apical lateral LV wall motion is hypokinetic. Api selene inferior LV wall motion is hypokinetic. Apical septum LV wall motion is hypokinetic. The right ventricle is normal in size. Normal LA size by volume 22+/-6 ml/m2. The right atrium is normal in size. Interatrial and interventricular septum intact. The aortic valve is trileaflet, and appears structurally normal. No aortic stenosis or regurgitation. The mitral valve is normal. The tricuspid valve appears structurally normal. There is no pulmonic regurgitation present. The aortic root is dilated measuring 3.9cm. Normal inferior vena cava with normal inspiratory collapse consistent with estimated right atrial pre ssure of 5 mmHg. There is no pericardial effusion. CONCLUSIONS -------- 1. The left ventricular size is normal. 2. There is borderline concentric left ventricular hypertrophy. 3. Overall left ventricular systolic function is moderately impaired with, an EF between 35 - 40 %. 4. Apical anterior LV wall motion is hypokinetic. 5. Apical lateral LV wall motion is hypokinetic. 6. Apical inferior LV wall motion is hypokinetic. 7. Apical septum LV wall motion is hypokinetic. 8. The aortic valve is trileaflet, and appears structurally normal. No aortic stenosis or regurgitati on. 9. The aortic root is dilated measuring 3.9cm. 10. There is no pericardial effusion. SAND CUTTING MACHINE OPERATOR: Jennifer Martinez RDCS
[2020-10-15] MEDS: ATORVASTATIN 80 MG TAB PO SCH (20:07)
--- NOTE | 2020-10-16 00:16 | P.HPIM ---
History of Present Illness H&P Date: 10/15/20 Chief Complaint: Chest Pain Patient is a 49-year-old male with a known history of hypertension, history of SVT status post EP study and unable to ablate, currently everyday smoker presents to ER with complaints of chest pain. Patient was diagnosed with COVID- 19 infection on 10/04/2020 and has been symptoms since 10/03/2020. Yesterday afternoon patient was cutting his grass and suddenly developed left-sided chest pain radiating to the left arm. Crushing chest pain with 10 out of 10 in severity. Patient did take nitroglycerin at home but without much improvement in symptoms. Pain is assessed with shortness of breath. No complaints of dizziness or lightheadedness. No diaphoresis. No complaints of pruritus. No cough or sputum production. No nausea vomiting abdominal pain or diarrhea. Denies any other recent illnesses. Patient had EKG showed acute ST elevation in the V2 to V6 as well as aVL. Patient was started on heparin drip and cardiology taken to [facility] immediately. Laboratory showed WBC 19.7 hemoglobin 17.0 platelets 283 D-dimer 0.72 lactic acid 2.6 troponin 0 0.012, 6.0, 15.2 proBNP 104 liver enzymes are not elevated Patient underwent cardiac catheterization which showed acutely occluded LAD. Right dominance. Status post angioplasty and stent placement to LAD. Patient is being monitored in the emergency room. Review of Systems Constitutional: Patient denies any fever or chills . No generalized weakness or weight loss. Abdomen: Patient denied nausea vomiting and diarrhea and abdominal pain. Cardiovascular: Patient denies any chest pain or short of breath no palpitations. Respiratory: patient denied any cough or sputum production. No shortness of breath Neurologic: Patient denied any numbness or tingling headache. Musculoskeletal: Patient denies any complaints of joint swelling or deformity. Skin: Negative Psychiatric: Negative Endocrine: No heat or cold intolerance. No recent weight gain. Genitourinary: No dysuria or hematuria. All other 14 point ROS negative except the above Past Medical History Past Medical History: Hypertension Additional Past Medical History / Comment(s): SVT History of Any Multi-Drug Resistant Organisms: None Reported Past Surgical History: No Surgical Hx Reported Additional Past Surgical History / Comment(s): EP study-unable to ablate, bladder neck surgery. Past Anesthesia/Blood Transfusion Reactions: No Reported Reaction Past Psychological History: No Psychological Hx Reported Additional Psychological History / Comment(s): Pt resides with his spouse. He is independent. Smoking Status: Current every day smoker Past Alcohol Use History: None Reported Additional Past Alcohol Use History / Comment(s): Pt started smoking in 1988 and is a ppd smoker. Past Drug Use History: None Reported - Past Family History Father Family Medical History: COPD, Diabetes Mellitus, Eye Disorder Additional Family Medical History / Comment(s): Heart problems, vision problems, polio Mother Additional Family Medical History / Comment(s): Heart problems. Medications and Allergies Home Medications Medication Instructions Recorded Confirmed Type Albuterol Sulfate [Ventolin HFA] 1 - 2 puff INHALATION RT-Q6H PRN 10/14/20 10/14/20 History Diltiazem Cd [Cardizem Cd] 300 mg PO HS 10/14/20 10/14/20 History Fluticasone Propionate [Flovent 1 puff INHALATION RT-BID 10/14/20 10/14/20 History Diskus] SUMAtriptan succinate [Imitrex] 50 mg PO DAILY PRN 10/14/20 10/14/20 History Sertraline [Zoloft] 100 mg PO HS 10/14/20 10/14/20 History clonazePAM [KlonoPIN] 1 mg PO Q12H PRN 10/14/20 10/14/20 History Ticagrelor [Brilinta] 90 mg PO BID #60 tab 10/15/20 Rx Allergies Allergy/AdvReac Type Severity Reaction Status Date / Time codeine Allergy Nausea & Verified 10/14/20 15:59 Vomiting Physical Exam Vitals: Vital Signs Temp Pulse Resp BP Pulse Ox 10/15/20 10:00 61 22 121/82 95 10/15/20 09:00 66 25 H 109/72 95 10/15/20 08:00 97.9 F 66 12 111/76 96 10/15/20 07:00 62 14 116/74 95 10/15/20 06:00 61 17 124/80 96 10/15/20 05:00 58 L 18 107/74 95 10/15/20 04:00 98.2 F 62 21 118/83 96 10/15/20 03:00 63 22 122/79 96 10/15/20 02:00 62 16 119/80 96 10/15/20 01:00 58 L 18 115/71 94 L 10/15/20 00:00 97.8 F 61 17 121/72 93 L 10/14/20 23:30 61 20 92 L 10/14/20 23:00 62 18 121/72 96 10/14/20 22:30 62 20 125/76 96 10/14/20 22:00 58 L 21 117/85 96 10/14/20 21:30 61 13 118/80 97 10/14/20 21:00 60 21 122/77 96 10/14/20 20:45 64 18 122/77 96 10/14/20 20:30 68 16 111/81 97 10/14/20 20:15 66 18 117/80 96 10/14/20 20:00 97.8 F 68 15 112/86 94 L 10/14/20 19:45 71 20 98/81 94 L 10/14/20 19:30 69 20 67/48 94 L 10/14/20 19:15 71 22 98/81 94 L 10/14/20 19:00 71 12 84/69 94 L 10/14/20 18:45 73 14 108/91 96 10/14/20 18:30 79 17 116/86 95 10/14/20 18:15 72 4 L 114/80 97 10/14/20 18:10 12 10/14/20 18:01 97.6 F 60 13 96 10/14/20 16:15 74 21 118/81 95 10/14/20 15:55 98.0 F 65 18 112/70 95 Intake and Output 10/14/20 10/15/20 10/15/20 22:59 06:59 14:59 Intake Total 575 550 Output Total 850 200 450 Balance -275 350 -450 Intake: IV 500 550 Magnesium Sulfate-D5w Pmx 100 100 1 gm In Dextrose/Water 1 100ml.bag @ 100 mls/hr IVPB Q1H [facility] Rx#: [id number] Sodium Chloride 0.9% 1, 300 450 000 ml @ 75 mls/hr IV . [id number] [facility] Rx#:[id number] Intake, IV Titration 75 Amount Sodium Chloride 0.9% 1, 75 000 ml @ 75 mls/hr IV . [id number] [facility] Rx#:[id number] Output: Urine 850 200 450 Other: Voiding Method Urinal Urinal Urinal Weight 108.862 kg 79.3 kg PHYSICAL EXAMINATION: Patient is lying in the bed comfortably, no acute distress, awake alert and oriented.. HEENT: Normocephalic. Neck is supple. Pupils reactive. Nostrils clear. Oral cavity is moist. Ears reveal no drainage. Neck reveals no JVD, carotid bruits, or thyromegaly. CHEST EXAMINATION: Trachea is central. Symmetrical expansion. Lung galindo clear to auscultation and percussion. CARDIAC: Normal S1, S2 with no gallops. No murmurs ABDOMEN: Soft. Bowel sounds normal. No organomegaly. No abdominal bruits. Extremities: reveal no edema. No clubbing or cyanosis Neurologically awake, alert, oriented x3 with well-coordinated movements. No focal deficits noted Skin: No rash or skin lesions. Psychiatric: Coperative. Nonsuicidal Musculoskeletal: No joint swelling or deformity. Normal range of motion. Results CBC & Chem 7: 10/15/20 03:50 10/15/20 03:50 Labs: Abnormal Lab Results - Last 24 Hours (Table) 10/14/20 10/14/20 10/14/20 Range/Units 16:10 16:10 16:10 WBC 19.7 H (3.8-10.6) k/uL Neutrophils # 13.3 H (1.3-7.7) k/uL Monocytes # 1.1 H (0-1.0) k/uL D-Dimer 0.72 H (<0.60) mg/L FEU Glucose 111 H (74-99) mg/dL Plasma Lactic Acid King (0.7-2.0) mmol/L Troponin I (0.000-0.034) ng/mL LDL Cholesterol, Calc (0-99) mg/dL HDL Cholesterol (40-60) mg/dL 10/14/20 10/14/20 10/14/20 Range/Units 16:10 :21 19:21 WBC (3.8-10.6) k/uL Neutrophils # (1.3-7.7) k/uL Monocytes # (0-1.0) k/uL D-Dimer (<0.60) mg/L FEU Glucose (74-99) mg/dL Plasma Lactic Acid King 2.6 H* 2.2 H* (0.7-2.0) mmol/L Troponin I 6.000 H* (0.000-0.034) ng/mL LDL Cholesterol, Calc (0-99) mg/dL HDL Cholesterol (40-60) mg/dL 10/14/20 10/15/20 10/15/20 Range/Units 22:23 03:50 03:50 WBC 15.5 H (3.8-10.6) k/uL Neutrophils # 10.3 H (1.3-7.7) k/uL Monocytes # 1.1 H (0-1.0) k/uL D-Dimer (<0.60) mg/L FEU Glucose 114 H (74-99) mg/dL Plasma Lactic Acid King (0.7-2.0) mmol/L Troponin I 15.200 H* (0.000-0.034) ng/mL LDL Cholesterol, Calc 118 H (0-99) mg/dL HDL Cholesterol 27 L (40-60) mg/dL Thrombosis Risk Factor Assmnt - DVT/VTE Prophylaxis DVT/VTE Prophylaxis: Pharmacologic Prophylaxis ordered - Choose All That Apply Any of the Below Risk Factors Present?: Yes Each Factor Represents 1 point: Acute [place] Other Risk Factors: No Other congenital or acquired thrombophilia - If yes, enter type in comment: No Thrombosis Risk Factor Assessment Total Risk Factor Score: 1 Thrombosis Risk Factor Assessment Level: Low Risk Assessment and Plan Assessment: Acute ST elevation [place] status post cardiac catheterization and stent placement to LAD COVID-19 diagnosed on 10/04/2020. Currently on room air. History of SVT Currently everyday smoker Hypertension DVT prophylaxis Plan: Patient will be continued on aspirin, Brilinta and metoprolol and statins. 2D echocardiogram was ordered. Continue telemetry monitoring. Cardiology is on board. Added spironolactone and lisinopril. Currently patient is on room air saturating above 95%. Not a candidate for dexamethasone and remdesivir therapy at this time. Oxygen supplementation as needed. Continue with Covid precautions and follow-up closely. Cardiology is on board. Time with Patient: Greater than 30
[2020-10-16 08:45] LABS: Basophils # (A) 0.1 k/uL (0-0.2); Basophils % (A) 1 %; Eosinophils # (A) 0.5 k/uL (0-0.7); Eosinophils % (A) 4 %; HCT 46.4 % (39.0-53.0); HGB 16.1 gm/dL (13.0-17.5); Lymphocytes # (A) 2.2 k/uL (1.0-4.8); Lymphocytes % (A) 18 %; MCH 30.8 pg (25.0-35.0); MCHC 34.6 g/dL (31.0-37.0); MCV 88.8 fL (80.0-100.0); Mean Platelet Volume 8.3; Monocytes # (A) 0.8 k/uL (0-1.0); Monocytes % (A) 7 %; Neutrophils # (A) 8.7 k/uL (1.3-7.7); Neutrophils % (A) 70 %; Platelet Count 258 k/uL (150-450); RBC 5.22 m/uL (4.30-5.90); RDW 13.7 % (11.5-15.5); WBC 12.4 k/uL (3.8-10.6)
[2020-10-16] MEDS ORDERED: ENOXAPARIN 40 MG/0.4 ML SYRINGE SQ SCH (09:00)
[2020-10-16 09:02] LABS: African American GFR (CKD) >90 (>60 ml/min/1.73 sqM); Anion Gap 7 mmol/L; Blood Urea Nitrogen 10 mg/dL (9-20); C Reactive Protein 5.4 mg/dL (<1.0); Carbon Dioxide 20 mmol/L (22-30); Chloride 107 mmol/L (98-107); Glucose 120 mg/dL (74-99); LDH 842 U/L (313-618); Non-African American GFR(CKD) >90 (>60 ml/min/1.73 sqM); Potassium 4.7 mmol/L (3.5-5.1); Sodium 134 mmol/L (137-145)
[2020-10-16] MEDS: ASPIRIN 81 MG PO SCH (09:44)
[2020-10-16] MEDS: SPIRONOLACTONE 25 MG TAB PO SCH (09:44)
[2020-10-16] MEDS: METOPROLOL TARTRATE 25 MG TAB PO SCH (09:44)
[2020-10-16] MEDS: TICAGRELOR 90 MG TAB PO SCH (09:44)
[2020-10-16 10:50] VITALS: BMI 24.5
[2020-10-16 11:49] VITALS: RESP 20; TEMP 97.5
--- NOTE | 2020-10-16 12:45 | P.PN ---
Subjective Progress Note Date: 10/16/20 HISTORY OF PRESENT ILLNESS: This is a 49-year-old male with a past medical history of obstructive sleep apnea, hypertension, SVT, nicotine dependence, and recent Covid 19 diagnosed on 10/04/2020. Patient presented to the hospital with chest pain and was found to have a STEMI. Patient underwent cardiac cath with Dr. Loredo with PCI to proximal and mid LAD on 10/14/2020. Echocardiogram completed revealing ejection fraction 35-40%, and anterior, lateral, inferior, and septal LV wall hypokinesis. Patient examined this morning on the cardiac stepdown unit. Patient is sitting in the chair. He denies chest pain or pressure. Denies shortness of breath. Patient states he has been ambulating without any dyspnea. Vital signs are stable. PHYSICAL EXAM: VITAL SIGNS: Reviewed. GENERAL: Well-developed in no acute distress. NECK: Supple. No JVD or thyromegaly LUNGS: Respirations even and unlabored. Lungs essentially clear to auscultation bilaterally. HEART: Regular rate and rhythm. S1 and S2 heard. EXTREMITIES: Normal range of motion. No clubbing or cyanosis. Peripheral pulses intact. No lower extremity edema. Right radial cath site with pulse present. ASSESSMENT: Acute anterior STEMI, s/p PCI to LAD Hypertension History of SVT with previous ablation Recent Covid 19 Nicotine dependence PLAN: Continue current cardiac medications including aspirin, Lipitor, lisinopril, metoprolol, Aldactone, and Brilinta Patient may be discharged home this afternoon He is to follow up in the office with Dr. Loredo Nurse practitioner note has been reviewed by physician. Signing provider agrees with the documented findings, assessment, and plan of care. Objective - Vital Signs Vital signs: Vital Signs Temp 97.5 F L 10/16/20 08:00 Pulse 67 10/16/20 08:00 Resp 20 10/16/20 08:00 BP 113/75 10/16/20 08:00 Pulse Ox 98 10/16/20 08:00 Intake & Output 10/15/20 10/16/20 10/16/20 18:59 06:59 18:59 Output Total 850 Balance -850 Weight 80 kg 80 kg Output: Urine 850 Other: Voiding Method Urinal Urinal # Voids 1 - Labs CBC & Chem 7: 10/16/20 08:15 10/16/20 08:15 Labs: Abnormal Lab Results - Last 24 Hours (Table) 10/16/20 10/16/20 Range/Units 08:15 08:15 WBC 12.4 H (3.8-10.6) k/uL Neutrophils # 8.7 H (1.3-7.7) k/uL Sodium 134 L (137-145) mmol/L Carbon Dioxide 20 L (22-30) mmol/L Glucose 120 H (74-99) mg/dL Lactate Dehydrogenase 842 H (313-618) U/L C-Reactive Protein 5.4 H (<1.0) mg/dL
[2020-10-16 15:11] VITALS: BP 118/77; PULSE 61
== END 2020-10-16 16:38 | disposition home or self-care (01) | DRG 247 ==
LOC: EC 15:54 → 2SICU 16:29 → 3SCARD 10-15 16:45
PROVIDERS: ADMIT Internal Medicine; ATTEND Internal Medicine
PROC: B2111ZZ Fluoroscopy of Multiple Coronary Arteries using Low Osmolar Contrast (ICD-10-PCS; 2020-10-14)
PROC: 027034Z Dilation of Coronary Artery, One Artery with Drug-eluting Intraluminal Device, Percutaneous Approach (ICD-10-PCS; principal; 2020-10-14 16:11)
PROC: 4A023N7 Measurement of Cardiac Sampling and Pressure, Left Heart, Percutaneous Approach (ICD-10-PCS; 2020-10-14 16:11)
DX: I21.09 ST elevation (STEMI) myocardial infarction involving other coronary artery of anterior wall (principal); I47.1 Supraventricular tachycardia; I10 Essential (primary) hypertension; F17.200 Nicotine dependence, unspecified, uncomplicated; G47.33 Obstructive sleep apnea (adult) (pediatric); Z86.16 Personal history of COVID-19; Z79.02 Long term (current) use of antithrombotics/antiplatelets; Z79.82 Long term (current) use of aspirin; Z79.899 Other long term (current) drug therapy; Z82.5 Family history of asthma and other chronic lower respiratory diseases; Z83.3 Family history of diabetes mellitus; I25.10 Atherosclerotic heart disease of native coronary artery without angina pectoris; Z79.51 Long term (current) use of inhaled steroids
CPT/HCPCS: 36415; 80048; 80053; 80061; 83605; 83615; 83735; 83880; 84484; 85025; 85347; 85379; 85610; 85730; 86140; 93005; 93306; 93458; 96374; 99285

== ENCOUNTER 2021-08-28 11:18 | Inpatient (IN) | payer BC, OTHER ==
--- NOTE | 2021-08-28 11:52 | ED ---
General Adult HPI - General Source: patient, RN notes reviewed, old records reviewed <Michael Hua - Last Filed: 08/28/21 14:21> <Marisel Olmos - Last Filed: 08/28/21 15:32> - General Stated complaint: Mental Health Time Seen by Provider: 08/28/21 11:18 - History of Present Illness Initial comments: This is a 50-year-old male who presents emergency Department the EMS along with the police. Patient was petition by the police. Patient states that yesterday he had a very stressful day and is feeling very unappreciated by his claiming statement that he be better off because she can get the insurance money and he states he never made any comment about committing suicide. Patient states she is not suicidal and he has not told anyone he was. Patient denies any alcohol or drug use. Patient states she works midnight so is often very tired and gets no sleep. Patient denies any physical complaints today except that he is very tired. Patient states he feels somewhat betrayed by his because she has some mental health issues and he has never called the police on him and he even told her that he would follow-up with his primary doctor but that wasn't good enough for her so she wanted him evaluated now. (Michael Hua) - Related Data Home Medications Medication Instructions Recorded Confirmed Albuterol Sulfate [Ventolin HFA] 1 - 2 puff INHALATION RT-Q6H PRN 10/14/20 08/28/21 SUMAtriptan succinate [Imitrex] 50 mg PO DAILY PRN 10/14/20 08/28/21 Metoprolol Succinate [Toprol XL] 25 mg PO DAILY 08/28/21 08/28/21 Omeprazole [PriLOSEC] 20 mg PO DAILY 08/28/21 08/28/21 buPROPion HCL [Wellbutrin XL] 300 mg PO DAILY 08/28/21 08/28/21 busPIRone HCL [Buspar] 7.5 mg PO BID 08/28/21 08/28/21 clonazePAM [KlonoPIN] 2 mg PO BID PRN 08/28/21 08/28/21 hydrOXYzine HCL [Atarax] 50 mg PO QID PRN 08/28/21 08/28/21 Previous Rx's Medication Instructions Recorded Spironolactone [Aldactone] 25 mg PO DAILY #90 tab 10/16/20 lisinopriL [Zestril] 2.5 mg PO DAILY #90 tab 10/16/20 Allergies Allergy/AdvReac Type Severity Reaction Status Date / Time atorvastatin [From Lipitor] AdvReac JOINT PAIN Verified 08/28/21 12:30 codeine AdvReac Nausea & Verified 08/28/21 12:30 Vomiting Review of Systems ROS Other: All systems not noted in ROS Statement are negative. <Michael Hua - Last Filed: 08/28/21 14:21> ROS Other: All systems not noted in ROS Statement are negative. <Marisel Olmos - Last Filed: 08/28/21 15:32> ROS Statement: Those systems with pertinent positive or pertinent negative responses have been documented in the HPI. Past Medical History Past Medical History: Hypertension Additional Past Medical History / Comment(s): SVT History of Any Multi-Drug Resistant Organisms: None Reported Past Surgical History: No Surgical Hx Reported Additional Past Surgical History / Comment(s): EP study-unable to ablate, bladder neck surgery. Past Anesthesia/Blood Transfusion Reactions: No Reported Reaction Past Psychological History: No Psychological Hx Reported Smoking Status: Current every day smoker Past Alcohol Use History: None Reported Past Drug Use History: None Reported - Past Family History Father Family Medical History: COPD, Diabetes Mellitus, Eye Disorder Additional Family Medical History / Comment(s): Heart problems, vision problems, polio Mother Additional Family Medical History / Comment(s): Heart problems. <Michael Hua - Last Filed: 08/28/21 14:21> General Exam <Michael Hua - Last Filed: 08/28/21 14:21> - General Exam Comments Initial Comments: GENERAL: Patient is well-developed and well-nourished. Patient is nontoxic and well- hydrated and is in no acute distress. ENT: Neck is soft and supple. No significant lymphadenopathy is noted. Oropharynx is clear. Moist mucous membranes. Neck has full range of motion without eliciting any pain. EYES: The sclera were anicteric and conjunctiva were pink and moist. Extraocular movements were intact and pupils were equal round and reactive to light. Eyelids were unremarkable. PULMONARY: Unlabored respirations. Good breath sounds bilaterally. No audible rales rhonchi or wheezing was noted. CARDIOVASCULAR: There is a regular rate and rhythm without any murmurs gallops or rubs. ABDOMEN: Soft and nontender with normal bowel sounds. . SKIN: Skin is clear with no lesions or rashes and otherwise unremarkable. NEUROLOGIC: Patient is alert and oriented x3. Cranial nerves II through XII are grossly intact. Motor and sensory are also intact. Normal speech, volume and content. Symmetrical smile. MUSCULOSKELETAL: Normal extremities with adequate strength and full range of motion. LYMPHATICS: No significant lymphadenopathy is noted PSYCHIATRIC: Patient denies suicidal or homicidal ideations. Patient states he is feeling a little under appreciated but does not have any ideas about taking his life or hurting himself. (Michael Hua) Course Vital Signs 08/28/21 11:49 Temperature 98.1 F Pulse Rate 68 Respiratory 14 Rate Blood Pressure 127/85 O2 Sat by Pulse 100 Oximetry Medical Decision Making <Michael Hua - Last Filed: 08/28/21 14:21> <Marisel Olmos - Last Filed: 08/28/21 15:32> - Medical Decision Making Dr. Olmos will be taking over the care of this patient at 2:30 PM (Michael Hua) EPS evaluated the patient - patient will be admitted. Signed himself in voluntarily (Marisel Olmos) - Lab Data Lab Results 08/28/21 Range/Units 13:34 Urine Opiates Screen Not Detected (NotDetected) Ur Oxycodone Screen Not Detected (NotDetected) Urine Methadone Screen Not Detected (NotDetected) Ur Propoxyphene Screen Not Detected (NotDetected) Ur Barbiturates Screen Not Detected (NotDetected) U Tricyclic Antidepress Not Detected (NotDetected) Ur Phencyclidine Scrn Not Detected (NotDetected) Ur Amphetamines Screen Not Detected (NotDetected) U Methamphetamines Scrn Not Detected (NotDetected) U Benzodiazepines Scrn Not Detected (NotDetected) Urine Cocaine Screen Not Detected (NotDetected) U Marijuana (THC) Screen Not Detected (NotDetected) Disposition <Michael Hua - Last Filed: 08/28/21 14:21> Is patient prescribed a controlled substance at d/c from ED?: No Decision to Admit Reason: Admit from ([facility]) - Out of Hospital Transfer - Req. Specs Out of Hospital Transfer - Requested Specifics: Psychiatric Non-ICU <Marisel Olmos - Last Filed: 08/28/21 15:32> Clinical Impression: Depression Disposition: TRANSFER TO PSYCH HOSP/UNIT Condition: Stable Referrals: Madelyn Rea III, MD [Primary Care Provider] - 1-2 days
[2021-08-28 14:04] LABS: Amphetamine Screen,Urine Not Detected (NotDetected); Barbiturate Screen,Urine Not Detected (NotDetected); Benzodiazepines Screen,Urine Not Detected (NotDetected); Cocaine Screen,Urine Not Detected (NotDetected); Methadone Screen, Urine Not Detected (NotDetected); Opiate Screen,Urine Not Detected (NotDetected); Oxycodone Screen, Urine Not Detected (NotDetected); Phencyclidine Screen,Urine Not Detected (NotDetected); Tricyclic Antidepressant,Urine Not Detected (NotDetected); Urn Cannabinoid Scrn Not Detected (NotDetected)
[2021-08-28] MEDS ORDERED: clonazePAM 1 MG TAB PO PRN (22:30)
[2021-08-28] MEDS ORDERED: hydrOXYzine HCL 25 MG TAB PO PRN (22:30)
[2021-08-28] MEDS ORDERED: HALOPERIDOL LACTATE 5 MG/ML 1 ML VIAL IM PRN (23:00)
[2021-08-28] MEDS ORDERED: ACETAMINOPHEN TAB 325 MG TAB PO PRN (23:00)
[2021-08-28] MEDS ORDERED: haloperidoL 5 MG TAB PO PRN (23:00)
[2021-08-29] MEDS ORDERED: ALBUTEROL HFA INHALER INHALATION PRN
[2021-08-29] MEDS ORDERED: MAG HYDROX/AL HYDROX/SIMETH 30 ML CUP PO PRN
[2021-08-29] MEDS: busPIRone HCl 5 MG TAB PO SCH ×3 (01:53→20:40)
[2021-08-29] MEDS: NICOTINE 14MG/24HR PATCH TRANSDERM SCH ×2 (01:53→09:01)
[2021-08-29 07:57] LABS: ALT 17 U/L (4-49); AST 20 U/L (17-59); African American GFR (CKD) >90 (>60 ml/min/1.73 sqM); Alkaline Phosphatase 76 U/L (38-126); Anion Gap 6 mmol/L; Blood Urea Nitrogen 15 mg/dL (9-20); Carbon Dioxide 27 mmol/L (22-30); Chloride 105 mmol/L (98-107); Glucose 115 mg/dL (74-99); Non-African American GFR(CKD) >90 (>60 ml/min/1.73 sqM); Potassium 5.3 mmol/L (3.5-5.1); Sodium 138 mmol/L (137-145); Total Bilirubin 1.2 mg/dL (0.2-1.3); Total Protein 7.1 g/dL (6.3-8.2)
[2021-08-29 08:19] LABS: Basophils # (A) 0.1 k/uL (0-0.2); Basophils % (A) 1 %; Eosinophils # (A) 0.4 k/uL (0-0.7); Eosinophils % (A) 4 %; HGB 16.6 gm/dL (13.0-17.5); Lymphocytes # (A) 2.6 k/uL (1.0-4.8); Lymphocytes % (A) 28 %; MCH 31.5 pg (25.0-35.0); MCHC 33.2 g/dL (31.0-37.0); MCV 94.7 fL (80.0-100.0); Monocytes # (A) 0.6 k/uL (0-1.0); Monocytes % (A) 6 %; Neutrophils # (A) 5.4 k/uL (1.3-7.7); Neutrophils % (A) 58 %; Platelet Count 256 k/uL (150-450); RBC 5.28 m/uL (4.30-5.90); RDW 14.4 % (11.5-15.5); WBC 9.3 k/uL (3.8-10.6)
[2021-08-29] MEDS ORDERED: SUMAtriptan succinate 50 MG TAB PO PRN (09:00)
[2021-08-29] MEDS: PANTOPRAZOLE 40 MG TABLET PO SCH (09:00)
[2021-08-29] MEDS ORDERED: MAGNESIUM HYDROXIDE 2,400 MG/10 ML CUP PO PRN (09:00)
[2021-08-29] MEDS: SPIRONOLACTONE 25 MG TAB PO SCH (09:01)
[2021-08-29] MEDS: METOPROLOL SUCCINATE (ER) 25 MG TAB.ER.24H PO SCH (09:01)
[2021-08-29 10:41] LABS: LDL Cholesterol,Calculated 141.8 mg/dL (0.0-131.0); VLDL Calculation 14.22 mg/dL (5.00-40.00)
--- NOTE | 2021-08-29 11:47 | P.CONS ---
History of Present Illness - History of Present Illness Patient is a pleasant 50-year-old male admitted to psychiatric floor for a sanjay atment of major depression and suicidal ideation. Patient is clinically doing well denied any shortness of breath orthopnea paroxysmal nocturnal dyspnea patient any chest pain. Patient doesn't have any symptoms at this time. Patient can use to smoke about half a pack of cigarettes per day patient does have history of coronary artery disease ischemic cardiomyopathy EF of around 30- 35% on the echocardiogram. Patient had a cardiac catheterization and stenting in the September 2020. Patient is bit hypotensive is on lisinopril and Aldactone because of his low ejection fraction patient has minimal occasional lightheadedness. Patient is presently not in heart failure exacerbation. Patient is bit hyperkalemic with a potassium of 5.4. REVIEW OF SYSTEMS: CONSTITUTIONAL: No fever, no malaise, no fatigue. HEENT: No recent visual problems or hearing problems. Denied any sore throat. CARDIOVASCULAR: No chest pain, orthopnea, PND, no palpitations, no syncope. PULMONARY: No shortness of breath, no cough, no hemoptysis. GASTROINTESTINAL: No diarrhea, no nausea, no vomiting, no abdominal pain. NEUROLOGICAL: No headaches, no weakness, no numbness. HEMATOLOGICAL: Denies any bleeding or petechiae. GENITOURINARY: Denies any burning micturition, frequency, or urgency. MUSCULOSKELETAL/RHEUMATOLOGICAL: Denies any joint pain, swelling, or any muscle pain. ENDOCRINE: Denies any polyuria or polydipsia. The rest of the 14-point review of systems is negative. PHYSICAL EXAMINATION: GENERAL: The patient is alert and oriented x3, not in any acute distress. Well developed, well nourished. HEENT: Pupils are round and equally reacting to light. EOMI. No scleral icterus. No conjunctival pallor. Normocephalic, atraumatic. No pharyngeal erythema. No thyromegaly. CARDIOVASCULAR: S1 and S2 present. No murmurs, rubs, or gallops. PULMONARY: Chest is clear to auscultation, no wheezing or crackles. ABDOMEN: Soft, nontender, nondistended, normoactive bowel sounds. No palpable organomegaly. MUSCULOSKELETAL: No joint swelling or deformity. EXTREMITIES: No cyanosis, clubbing, or pedal edema. NEUROLOGICAL: Gross neurological examination did not reveal any focal deficits. SKIN: No rashes. Assessment and plan -Hyperkalemia: Secondary to Aldactone and the lisinopril. Patient was started on low potassium diet will recheck the basic metabolic profile again tomorrow if he continues to be hyperkalemic with probably have to disc any Aldactone. Instructions were given to the patient and notified the nurse as well. I notified the nursing's staff to call me back if his potassium continues to be higher tomorrow and repeat basic metabolic profile -Congestive heart failure chronic systolic dysfunction without any acute exacerbation -Ischemic cardiomyopathy -Coronary artery disease -History of SVT in the past -Hypertension hyperlipidemia -Major depression management as per primary service -Continued nicotine use: Counseling was provided Past Medical History Past Medical History: Hypertension Additional Past Medical History / Comment(s): SVT History of Any Multi-Drug Resistant Organisms: None Reported Past Surgical History: No Surgical Hx Reported Additional Past Surgical History / Comment(s): EP study-unable to ablate, bladder neck surgery. Past Anesthesia/Blood Transfusion Reactions: No Reported Reaction Past Psychological History: No Psychological Hx Reported Smoking Status: Current every day smoker Past Alcohol Use History: None Reported Past Drug Use History: None Reported - Past Family History Father Family Medical History: COPD, Diabetes Mellitus, Eye Disorder Additional Family Medical History / Comment(s): Heart problems, vision problems, polio Mother Additional Family Medical History / Comment(s): Heart problems. Medications and Allergies Home Medications Medication Instructions Recorded Confirmed Type Albuterol Sulfate [Ventolin HFA] 1 - 2 puff INHALATION RT-Q6H PRN 10/14/20 08/28/21 History SUMAtriptan succinate [Imitrex] 50 mg PO DAILY PRN 10/14/20 08/28/21 History Spironolactone [Aldactone] 25 mg PO DAILY #90 tab 10/16/20 08/28/21 Rx lisinopriL [Zestril] 2.5 mg PO DAILY #90 tab 10/16/20 08/28/21 Rx Metoprolol Succinate [Toprol XL] 25 mg PO DAILY 08/28/21 08/28/21 History Omeprazole [PriLOSEC] 20 mg PO DAILY 08/28/21 08/28/21 History buPROPion HCL [Wellbutrin XL] 300 mg PO DAILY 08/28/21 08/28/21 History busPIRone HCL [Buspar] 7.5 mg PO BID 08/28/21 08/28/21 History clonazePAM [KlonoPIN] 2 mg PO BID PRN 08/28/21 08/28/21 History hydrOXYzine HCL [Atarax] 50 mg PO QID PRN 08/28/21 08/28/21 History Allergies Allergy/AdvReac Type Severity Reaction Status Date / Time atorvastatin [From Lipitor] AdvReac JOINT PAIN Verified 08/28/21 12:30 codeine AdvReac Nausea & Verified 08/28/21 12:30 Vomiting Physical Exam Vitals: Vital Signs Temp Pulse Pulse Pulse Resp BP BP 08/29/21 09:05 82 16 102/68 08/29/21 06:25 97.9 F 68 14 106/64 08/28/21 22:07 96.5 F L 54 L 136/83 08/28/21 18:29 98.1 F 73 14 100/63 08/28/21 11:49 98.1 F 68 14 127/85 Pulse Ox 08/29/21 09:05 08/29/21 06:25 97 08/28/21 22:07 99 08/28/21 18:29 98 08/28/21 11:49 100 Results CBC & Chem 7: 08/29/21 06:51 08/29/21 06:51 Labs: Abnormal Lab Results - Last 24 Hours (Table) 08/29/21 Range/Units 06:51 Potassium 5.3 H (3.5-5.1) mmol/L Glucose 115 H (74-99) mg/dL LDL Cholesterol, Calc 141.8 H (0.0-131.0) mg/dL HDL Cholesterol 39.00 L (40.00-60.00) mg/dL
--- NOTE | 2021-08-29 14:44 | P.HP ---
Psychiatric H&P - . H&P Date: 08/29/21 History & Physical: Allergies Allergy/AdvReac Type Severity Reaction Status Date / Time atorvastatin From Lipitor AdvReac JOINT PAIN Verified 08/28/21 12:30 codeine AdvReac Nausea & Verified 08/28/21 12:30 Vomiting Vital Signs Temp 97.9 F 08/29/21 06:25 Pulse 82 08/29/21 09:05 Resp 16 08/29/21 09:05 BP 102/68 08/29/21 09:05 Pulse Ox 97 08/29/21 06:25 Intake & Output 08/28/21 08/29/21 08/29/21 18:59 06:59 18:59 Weight 117.934 kg Laboratory Last Values WBC 9.3 k/uL (3.8-10.6) 08/29/21 06:51 RBC 5.28 m/uL (4.30-5.90) 08/29/21 06:51 Hgb 16.6 gm/dL (13.0-17.5) 08/29/21 06:51 Hct 50.0 % (39.0-53.0) 08/29/21 06:51 MCV 94.7 fL (80.0-100.0) 08/29/21 06:51 MCH 31.5 pg (25.0-35.0) 08/29/21 06:51 MCHC 33.2 g/dL (31.0-37.0) 08/29/21 06:51 RDW 14.4 % (11.5-15.5) 08/29/21 06:51 Plt Count 256 k/uL (150-450) 08/29/21 06:51 MPV 9.0 08/29/21 06:51 Neutrophils % 58 % 08/29/21 06:51 Lymphocytes % 28 % 08/29/21 06:51 Monocytes % 6 % 08/29/21 06:51 Eosinophils % 4 % 08/29/21 06:51 Basophils % 1 % 08/29/21 06:51 Neutrophils # 5.4 k/uL (1.3-7.7) 08/29/21 06:51 Lymphocytes # 2.6 k/uL (1.0-4.8) 08/29/21 06:51 Monocytes # 0.6 k/uL (0-1.0) 08/29/21 06:51 Eosinophils # 0.4 k/uL (0-0.7) 08/29/21 06:51 Basophils # 0.1 k/uL (0-0.2) 08/29/21 06:51 Sodium 138 mmol/L (137-145) 08/29/21 06:51 Potassium 5.3 mmol/L (3.5-5.1) H 08/29/21 06:51 Chloride 105 mmol/L (98-107) 08/29/21 06:51 Carbon Dioxide 27 mmol/L (22-30) 08/29/21 06:51 Anion Gap 6 mmol/L 08/29/21 06:51 BUN 15 mg/dL (9-20) 08/29/21 06:51 Creatinine 0.96 mg/dL (0.66-1.25) 08/29/21 06:51 Est GFR (CKD-EPI)AfAm >90 (>60 ml/min/1.73 sqM) 08/29/21 06:51 Est GFR (CKD-EPI)NonAf >90 (>60 ml/min/1.73 sqM) 08/29/21 06:51 Glucose 115 mg/dL (74-99) H 08/29/21 06:[address] Glu mg/dL 120 08/29/21 06:51 Hemoglobin A1c 5.8 % (0.0-6.0) 08/29/21 06:51 Calcium 9.0 mg/dL (8.4-10.2) 08/29/21 06:51 Total Bilirubin 1.2 mg/dL (0.2-1.3) 08/29/21 06:51 AST 20 U/L (17-59) 08/29/21 06:51 ALT 17 U/L (4-49) 08/29/21 06:51 Alkaline Phosphatase 76 U/L (38-126) 08/29/21 06:51 Total Protein 7.1 g/dL (6.3-8.2) 08/29/21 06:51 Albumin 4.0 g/dL (3.5-5.0) 08/29/21 06:51 Triglycerides 71.10 mg/dL (0.00-149.00) 08/29/21 06:51 Cholesterol 195.00 mg/dL (0.00-200.00) 08/29/21 06:51 LDL Cholesterol, Calc 141.8 mg/dL (0.0-131.0) H 08/29/21 06:51 VLDL Cholesterol, Calc 14.22 mg/dL (5.00-40.00) 08/29/21 06:51 HDL Cholesterol 39.00 mg/dL (40.00-60.00) L 08/29/21 06:51 Cholesterol/HDL Ratio 5.00 Ratio 08/29/21 06:51 TSH 3.100 mIU/L (0.465-4.680) 08/29/21 06:51 Urine Opiates Screen Not Detected (NotDetected) 08/28/21 13:34 Ur Oxycodone Screen Not Detected (NotDetected) 08/28/21 13:34 Urine Methadone Screen Not Detected (NotDetected) 08/28/21 13:34 Ur Propoxyphene Screen Not Detected (NotDetected) 08/28/21 13:34 Ur Barbiturates Screen Not Detected (NotDetected) 08/28/21 13:34 U Tricyclic Antidepress Not Detected (NotDetected) 08/28/21 13:34 Ur Phencyclidine Scrn Not Detected (NotDetected) 08/28/21 13:34 Ur Amphetamines Screen Not Detected (NotDetected) 08/28/21 13:34 U Methamphetamines Scrn Not Detected (NotDetected) 08/28/21 13:34 U Benzodiazepines Scrn Not Detected (NotDetected) 08/28/21 13:34 Urine Cocaine Screen Not Detected (NotDetected) 08/28/21 13:34 U Marijuana (THC) Screen Not Detected (NotDetected) 08/28/21 13:34 Coronavirus (PCR) Not Detected (Not Detectd) 08/28/21 15:39 08/29/21 10:44 IDENTIFYING DATA: Patient is a 50 yo male who currently lives with , has 3 kids, currently lives in a house. 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 he was admitted voluntarily. Apparently patient had sent text messages to about suicidal thoughts or plan. He claims that he was havign a stressfull day, was feeling unappreciated at home. He claims that he works long hours at nighttime and feels tired. He blames a lot of it on "sleep deprivation" and did admit to sending messages to his about "being better off if I'm not here anymore". He states that he is bad shift at work. He claims that he was in a stressful work environment as well. He states that the police did a wellness check on him when he got home from work. He states that he does feel unappreciated and does a lot of work around the house. He states that he sleeps about 3-4 hours a day. He claims that he has a fair appetite. He states that he has been dealing with depression however claims that the Wellbutrin has been helping. He did admit to anxiety. He claims that his has PTSD and a "severe anxiety disorder". He is denying any access to guns in the house and states that they were "taken away". Patient denies any current suicidal or homicidal ideations intent or plan. At this time patient denies any auditory or visual hallucinations. Patient denies any flight of ideas racing thoughts and increased in goal directed behavior. Patient admits to using edibles approximately once every other month. He admits to cigarette use. PAST PSYCHIATRIC HISTORY: Patient states that he has a history of depression and anxiety. . He claims that he is on Vistaril, Wellbutrin and Klonopin. Patient denies any previous psychiatric hospitalizations. Patient denies any psychiatric outpatient follow-up. He states that he did attempt to cut his wrist when he was 20 years old after a breakup with his girlfriend at that time. Past Medical History: Hypertension Additional Past Medical History / Comment(s): SVT ALLERGIES: as per EMR CHEMICAL DEPENDENCY HISTORY: as per HPI FAMILY PSYCHIATRIC/SUBSTANCE USE HISTORY: States that his brother has bipolar disorder. SOCIAL HISTORY: Patient was born and raised in [place] and also in [place]. He states that he completed up to the 12th grade in school. He claims that he does not have any legal history. He has 3 kids that are grown and moved away. He states that he lives with his and also a homeless girl that they are taking in an caring for. He states that they live in a house and he works as a braid folder. MENTAL STATUS EXAM: General Appearance: Patient appears to be well-built, stated age is alert, directable, and attempts to cooperate. Patient appears to have poor hygiene and grooming. Behavior: Patient is seated without any agitated behavior. Attempts to cooperate Speech: Patient's speech is fluent and nonpressured. Mood/Affect: Patient reports their mood is depressed, affect is congruent and constricted. Suicidality/Homicidality: Patient denies having any homicidal ideation intent or plan. Denies any suicidal ideations intent or plan Perceptions: Patient denies any visual hallucinations and denies any auditory hallucinations Though content/process: There is no evidence of any delusional thought content and thought process is linear and goal-directed. Memory and concentration: AOX3, grossly intact for the purposes of this session. Can spell "WORLD" backwards Judgment and insight: Fair STRENGTHS/WEAKNESSES: strength is that patient is resilient. Weakness is that patient has poor judgment and is impulsive INTELLECT: average IMPRESSIONS: Depressive disorder unspecified, likely adjustment disorder versus major depressive disorder Generalized anxiety disorder Nicotine dependence PLAN: -Patient is admitted under voluntary status to MHU for stabilization of psychiatric symptoms and safety. Patient has signed adult voluntary form and medication consent and is placed in patient's chart. -Medications : Will start patient on his home dose of Wellbutrin XL 300 mg daily for mood. Melatonin daily at bedtime for sleep. Vistaril when necessary for anxiety. BuSpar increased to 15 mg by mouth 3 times a day for anxiety. -Ativan and Haldol PRN for agitation/aggression -Patient was informed of the risks, benefits and side effects of the medication and patient verbally consented to taking the medications. Patient signed med consent form and was placed in chart. -Internal Medicine consult to perform medical evaluation and physical. -NRT - nicotine patch -SW on board for discharge planning. Encourage patient to participate in groups to work on coping skills. respite worker to attempt to contact patient's and likely plan for discharge tomorrow if patient improves. 08/29/21 14:37 08/29/21 14:43
[2021-08-29] MEDS: buPROPion XL 300 MG TAB.ER.24H PO SCH (16:55)
[2021-08-29] MEDS ORDERED: MELATONIN 3 MG TABLET PO SCH (21:00)
[2021-08-30 06:42] VITALS: BP 111/63; PULSE 63; RESP 14; TEMP 97.4
[2021-08-30 07:43] LABS: African American GFR (CKD) >90 (>60 ml/min/1.73 sqM); Anion Gap 7 mmol/L; Blood Urea Nitrogen 17 mg/dL (9-20); Carbon Dioxide 25 mmol/L (22-30); Chloride 105 mmol/L (98-107); Glucose 114 mg/dL (74-99); Non-African American GFR(CKD) >90 (>60 ml/min/1.73 sqM); Potassium 4.5 mmol/L (3.5-5.1); Sodium 137 mmol/L (137-145)
[2021-08-30] MEDS: busPIRone HCl 5 MG TAB PO SCH (07:59)
[2021-08-30] MEDS: PANTOPRAZOLE 40 MG TABLET PO SCH (07:59)
[2021-08-30] MEDS: buPROPion XL 300 MG TAB.ER.24H PO SCH (07:59)
[2021-08-30] MEDS: METOPROLOL SUCCINATE (ER) 25 MG TAB.ER.24H PO SCH (07:59)
[2021-08-30] MEDS: NICOTINE 14MG/24HR PATCH TRANSDERM SCH (07:59)
[2021-08-30] MEDS: SPIRONOLACTONE 25 MG TAB PO SCH (07:59)
--- NOTE | 2021-08-30 11:39 | P.DS ---
Providers Date of admission: 08/28/21 21:27 Expected date of discharge: 08/30/21 Attending physician: Christian Thomason MD Consults: 08/28/21 22:00 Consult Physician Routine Consulting Provider: [facility] Hospitalists Consult Reason/Comments: history and physical/medical management Do you want consulting provider notified?: Yes Primary care physician: Madelyn Rea - Discharge Diagnosis(es) (1) Depressive disorder Current Visit: Yes Status: Acute Priority: High (2) Generalized anxiety disorder Current Visit: Yes Status: Acute Priority: Medium (3) Nicotine dependence Current Visit: Yes Status: Acute Priority: Low Hospital Course: Admission HPI: Admission note was completed by [typewriter assembler] "[This patient is a 64-year-old male who is currently homeless and has 4 kids and is unemployed. The patient presented to the hospital yesterday with complaints of depression and suicidal thoughts. Patient has a history of schizoaffective disorder and has been psychiatrically and medically hospitalized several times in the past. He has a significant history of noncompliance with medications and very poor insight. Patient was admitted involuntarily to the mental health unit and agreeable to speak to typewriter assembler today. He was using a walker due to a chronic leg wound. He claims that he was recently released from senior living 2 days ago and came to the hospital for help. He states that he has not been taking psychiatric medications and has been feeling "very aggressive suicidal thoughts" and states that he is still having suicidal thoughts at this time however has no intent or plan in the unit. He claims that he's been feeling depressed anxious and was significantly talking about his chronic pain in his hip and also his leg. He was asking typewriter assembler about long-term placement as he claims that he cannot take care of himself. He rambled at times and was illogical. He also complained of racing thoughts which are mainly negative in nature. He states that he is having poor sleep and poor appetite. He was agreeable to take medications today. Patient denies any auditory, visual hallucinations. Patients admits to using cigarettes daily, beer as noted above and smoking marijuana daily. He claims that he drinks about 1 beer a day and has mild withdrawal symptoms at this time including anxiety.]" Hospital course: Upon admission to the unit patient was [directable and agreeable to commence treatment and signed adult voluntary form]. Patient got along well with other patients on the unit and followed unit protocol. Patient was compliant with the medications and denied any side effects throughout hospital course. Patient was started on [back on his wellbutrin xl 300 mg daily for mood, melatonin qhs for sleep, buspar was increased 15 mg bid for anxiety]. Patient spoke of [his] stressors and engaged in therapy both group and individual. Patient was also seen by medical team for history and physical exam. []Throughout the course of the hospitalization patient gradually improved with regards to [mood, anxiety], sleep and [became more future oriented with improved insight and judgment]. On the day of discharge patient denied any suicidal or homicidal ideations intent or plan denied any auditory or visual hallucinations. Patient endorsed wanting to live for [his health, future and family.] The patient denied any access to guns or weapons. Program Admin, spoke with patients over the phone Marisol at [phone] who had questions about patients condition and medications. She expressed that the patient hasnt been following up with his therapist and has been lying to his PCP. She claims that she sold the gun in the house and there are no weapons there. She states that she is willing to have him back in the house but only if he is willing to do outpatient therapy and treatment. Patient denied any paranoia and did not endorse any delusions. Patient does [not] have a significant history of substance abuse however was counseled on abstaining from all substances including alcohol and marijuana. Patient was also counseled on the medications and need for regular compliance and was encouraged to follow- up with their outpatient appointment for mental health and also for primary care. Patient will be discharged home today. Mental status exam: General Appearance: Patient appears to be [well built,] stated age is alert, pleasant, and cooperative. Patient is in no acute distress and has improved hygiene and grooming Behavior: Patient is calmly seated without any agitated behavior. cooperative Speech: Patient's speech is fluent and nonpressured. Mood/Affect: Patient reports their mood is "[better]", affect is congruent and euthymic. Suicidality/Homicidality: Patient denies having any suicidal or homicidal ideation intent or plan. Perceptions: Patient denies any auditory or visual hallucinations. Though content/process: There is no evidence of any delusional thought content and thought process is linear and goal-directed. [more future oriented] Memory and concentration: AOX3, grossly intact for the purposes of this session. Can spell "WORLD" backwards correctly. Judgment and insight: improved with guarded prognosis Impression: Depressive disorder NOS, likely adjustment disorder vs major depressive disorder generalized anxiety disorder [Nicotine dependence] Plan: -Continue with discharge today as patient has improved and stabilized psychiatrically and is not currently an imminent threat to himself and/or others. Patient will remain at chronically elevated risk for harm to self and/or others due to his impulsivity. -Continue medications: continue with wellbutrin XL 300 mg daily for mood, buspar 15 mg bid for anxiety, melatonin 6 mg qhs insomnia. will give 3 days supply for klonopin 1 mg bid prn for anxiety which is decreased from 2 mg bid. -Patient was counseled on the need for medication compliance and appropriate follow-up at mental health and also primary care for medical issues. Patient verbalized understanding and agreed. -Social work to arrange for and conduct family meeting to ensure safety upon discharge and answer any questions/concerns. Social work also to arrange for patients follow up appointments with PCC for psychiatric care along with follow up with primary care provider. -Patient counseled on abstaining from recreational drugs and marijuana and alcohol. Was informed/educated on the adverse effects on their physical and mental health. [Patient verbally agreed and understood]. -Patient was instructed to return to the hospital or seek immediate medical care if their psychiatric or medical symptoms do worsen or reoccur. Allergies Allergy/AdvReac Type Severity Reaction Status Date / Time atorvastatin [From Lipitor] AdvReac JOINT PAIN Verified 08/28/21 12:30 codeine AdvReac Nausea & Verified 08/28/21 12:30 Vomiting Vital Signs Temp 97.4 F L 08/30/21 06:17 Pulse 63 08/30/21 06:17 Resp 14 08/30/21 06:17 BP 111/63 08/30/21 06:17 Pulse Ox 99 08/30/21 06:17 Laboratory Results WBC 9.3 k/uL (3.8-10.6) 08/29/21 06:51 RBC 5.28 m/uL (4.30-5.90) 08/29/21 06:51 Hgb 16.6 gm/dL (13.0-17.5) 08/29/21 06:51 Hct 50.0 % (39.0-53.0) 08/29/21 06:51 MCV 94.7 fL (80.0-100.0) 08/29/21 06:51 MCH 31.5 pg (25.0-35.0) 08/29/21 06:51 MCHC 33.2 g/dL (31.0-37.0) 08/29/21 06:51 RDW 14.4 % (11.5-15.5) 08/29/21 06:51 Plt Count 256 k/uL (150-450) 08/29/21 06:51 MPV 9.0 08/29/21 06:51 Neutrophils % 58 % 08/29/21 06:51 Lymphocytes % 28 % 08/29/21 06:51 Monocytes % 6 % 08/29/21 06:51 Eosinophils % 4 % 08/29/21 06:51 Basophils % 1 % 08/29/21 06:51 Neutrophils # 5.4 k/uL (1.3-7.7) 08/29/21 06:51 Lymphocytes # 2.6 k/uL (1.0-4.8) 08/29/21 06:51 Monocytes # 0.6 k/uL (0-1.0) 08/29/21 06:51 Eosinophils # 0.4 k/uL (0-0.7) 08/29/21 06:51 Basophils # 0.1 k/uL (0-0.2) 08/29/21 06:51 Sodium 137 mmol/L (137-145) 08/30/21 07:13 Potassium 4.5 mmol/L (3.5-5.1) 08/30/21 07:13 Chloride 105 mmol/L (98-107) 08/30/21 07:13 Carbon Dioxide 25 mmol/L (22-30) 08/30/21 07:13 Anion Gap 7 mmol/L 08/30/21 07:13 BUN 17 mg/dL (9-20) 08/30/21 07:13 Creatinine 0.90 mg/dL (0.66-1.25) 08/30/21 07:13 Est GFR (CKD-EPI)AfAm >90 (>60 ml/min/1.73 sqM) 08/30/21 07:13 Est GFR (CKD-EPI)NonAf >90 (>60 ml/min/1.73 sqM) 08/30/21 07:13 Glucose 114 mg/dL (74-99) H 08/30/21 07:[address] Glu mg/dL 120 08/29/21 06:51 Hemoglobin A1c 5.8 % (0.0-6.0) 08/29/21 06:51 Calcium 9.0 mg/dL (8.4-10.2) 08/30/21 07:13 Total Bilirubin 1.2 mg/dL (0.2-1.3) 08/29/21 06:51 AST 20 U/L (17-59) 08/29/21 06:51 ALT 17 U/L (4-49) 08/29/21 06:51 Alkaline Phosphatase 76 U/L (38-126) 08/29/21 06:51 Total Protein 7.1 g/dL (6.3-8.2) 08/29/21 06:51 Albumin 4.0 g/dL (3.5-5.0) 08/29/21 06:51 Triglycerides 71.10 mg/dL (0.00-149.00) 08/29/21 06:51 Cholesterol 195.00 mg/dL (0.00-200.00) 08/29/21 06:51 LDL Cholesterol, Calc 141.8 mg/dL (0.0-131.0) H 08/29/21 06:51 VLDL Cholesterol, Calc 14.22 mg/dL (5.00-40.00) 08/29/21 06:51 HDL Cholesterol 39.00 mg/dL (40.00-60.00) L 08/29/21 06:51 Cholesterol/HDL Ratio 5.00 Ratio 08/29/21 06:51 TSH 3.100 mIU/L (0.465-4.680) 08/29/21 06:51 Urine Opiates Screen Not Detected (NotDetected) 08/28/21 13:34 Ur Oxycodone Screen Not Detected (NotDetected) 08/28/21 13:34 Urine Methadone Screen Not Detected (NotDetected) 08/28/21 13:34 Ur Propoxyphene Screen Not Detected (NotDetected) 08/28/21 13:34 Ur Barbiturates Screen Not Detected (NotDetected) 08/28/21 13:34 U Tricyclic Antidepress Not Detected (NotDetected) 08/28/21 13:34 Ur Phencyclidine Scrn Not Detected (NotDetected) 08/28/21 13:34 Ur Amphetamines Screen Not Detected (NotDetected) 08/28/21 13:34 U Methamphetamines Scrn Not Detected (NotDetected) 08/28/21 13:34 U Benzodiazepines Scrn Not Detected (NotDetected) 08/28/21 13:34 Urine Cocaine Screen Not Detected (NotDetected) 08/28/21 13:34 U Marijuana (THC) Screen Not Detected (NotDetected) 08/28/21 13:34 Coronavirus (PCR) Not Detected (Not Detectd) 08/28/21 15:39 Patient Condition at Discharge: Stable Plan - Discharge Summary New Discharge Prescriptions: New busPIRone HCl [Buspar] 15 mg PO BID 14 Days tab Nicotine 14Mg/24Hr Patch [Habitrol] 1 patch TRANSDERM DAILY 14 Days patch clonazePAM [KlonoPIN] 1 mg PO BID PRN 3 Days #6 tab PRN Reason: Anxiety Melatonin 6 mg PO HS 14 Days tablet Continue Spironolactone [Aldactone] 25 mg PO DAILY 14 Days #90 tab Omeprazole [PriLOSEC] 20 mg PO DAILY 14 Days cap Metoprolol Succinate [Toprol XL] 25 mg PO DAILY 14 Days tab lisinopriL [Zestril] 2.5 mg PO DAILY 14 Days #90 tab Albuterol Sulfate [Ventolin HFA] 1 - 2 puff INHALATION RT-Q6H PRN PRN Reason: Shortness Of Breath SUMAtriptan succinate [Imitrex] 50 mg PO DAILY PRN 14 Days tab PRN Reason: Migraine Headache buPROPion HCL [Wellbutrin XL] 300 mg PO DAILY 14 Days tab Discontinued clonazePAM [KlonoPIN] 2 mg PO BID PRN PRN Reason: Anxiety busPIRone HCL [Buspar] 7.5 mg PO BID hydrOXYzine HCL [Atarax] 50 mg PO QID PRN PRN Reason: ANXIETY/SLEEP Discharge Medication List Albuterol Sulfate [Ventolin HFA] 1 - 2 puff INHALATION RT-Q6H PRN 10/14/20 [History] Melatonin 6 mg PO HS 14 Days tablet 08/30/21 [Rx] Metoprolol Succinate [Toprol XL] 25 mg PO DAILY 14 Days tab 08/30/21 [Rx] Nicotine 14Mg/24Hr Patch [Habitrol] 1 patch TRANSDERM DAILY 14 Days patch 08/30/21 [Rx] Omeprazole [PriLOSEC] 20 mg PO DAILY 14 Days cap 08/30/21 [Rx] SUMAtriptan succinate [Imitrex] 50 mg PO DAILY PRN 14 Days tab 08/30/21 [Rx] Spironolactone [Aldactone] 25 mg PO DAILY 14 Days #90 tab 08/30/21 [Rx] buPROPion HCL [Wellbutrin XL] 300 mg PO DAILY 14 Days tab 08/30/21 [Rx] busPIRone HCl [Buspar] 15 mg PO BID 14 Days tab 08/30/21 [Rx] clonazePAM [KlonoPIN] 1 mg PO BID PRN 3 Days #6 tab 08/30/21 [Rx] lisinopriL [Zestril] 2.5 mg PO DAILY 14 Days #90 tab 08/30/21 [Rx] Follow up Appointment(s)/Referral(s): Madelyn Rea III, MD [Primary Care Provider] - 1-2 days Activity/Diet/Wound Care/Special Instructions: Activity and diet as tolerated. Avoid the use of street drugs and alcohol. Take all medications as prescribed. When you are in need of refills on your me dications please contact your medical provider and/or outpatient psychiatrist to have this done. Please go to scheduled outpatient appointment for aftercare treatment. If symptoms return or become worse, call the crisis line at and/or go to the nearest emergency room for evaluation Discharge Disposition: HOME SELF-CARE
== END 2021-08-30 13:15 | disposition home or self-care (01) | DRG 881 ==
LOC: EC 11:18 → 3MHU 21:27
PROVIDERS: ADMIT Psychiatry & Neurology Psychiatry; ATTEND Psychiatry & Neurology Psychiatry
DX: F32.A Depression, unspecified (principal); I50.22 Chronic systolic (congestive) heart failure; R45.851 Suicidal ideations; F25.9 Schizoaffective disorder, unspecified; I11.0 Hypertensive heart disease with heart failure; I95.9 Hypotension, unspecified; E87.5 Hyperkalemia; R45.88 Nonsuicidal self-harm; Z20.822 Contact with and (suspected) exposure to COVID-19; Z91.128 Patient's intentional underdosing of medication regimen for other reason; F41.1 Generalized anxiety disorder; F12.90 Cannabis use, unspecified, uncomplicated; E78.5 Hyperlipidemia, unspecified; I25.5 Ischemic cardiomyopathy; I25.10 Atherosclerotic heart disease of native coronary artery without angina pectoris; T50.0X5A Adverse effect of mineralocorticoids and their antagonists, initial encounter; T46.4X5A Adverse effect of angiotensin-converting-enzyme inhibitors, initial encounter; G47.00 Insomnia, unspecified; G89.29 Other chronic pain; M25.559 Pain in unspecified hip; T50.906A Underdosing of unspecified drugs, medicaments and biological substances, initial encounter; Z72.820 Sleep deprivation; F17.210 Nicotine dependence, cigarettes, uncomplicated; Z71.6 Tobacco abuse counseling; Z79.899 Other long term (current) drug therapy; Z95.5 Presence of coronary angioplasty implant and graft; Z86.79 Personal history of other diseases of the circulatory system; Z71.51 Drug abuse counseling and surveillance of drug abuser; Z71.41 Alcohol abuse counseling and surveillance of alcoholic; Z88.5 Allergy status to narcotic agent; Z88.8 Allergy status to other drugs, medicaments and biological substances; Z83.3 Family history of diabetes mellitus; Z82.5 Family history of asthma and other chronic lower respiratory diseases; Z83.518 Family history of other specified eye disorder; Z83.1 Family history of other infectious and parasitic diseases; Z81.8 Family history of other mental and behavioral disorders
CPT/HCPCS: 80048; 80053; 80061; 80306; 82075; 83036; 84443; 85025; 87635; 99285

== ENCOUNTER 2021-10-28 19:37 | Observation (INO) | payer BC, OTHER ==
--- NOTE | 2021-10-28 20:12 | ED ---
General Adult HPI - General Chief complaint: Overdose Stated complaint: Overdose Time Seen by Provider: 10/28/21 19:57 Source: patient, EMS, RN notes reviewed Mode of arrival: EMS Limitations: no limitations - History of Present Illness Initial comments: Patient is a pleasant 50-year-old male presenting to the emergency department following overdose. Patient took 2 handfuls of Vistaril. Patient also took around 6 or 7 this and felt. Patient denies taking Zofran. Patient states he took these medications around 7:00 in an attempt to harm himself. Patient amiss depression. No alcohol use. No homicidal thoughts. No hallucinations. No new physical complaints. Patient is having personal problems with his . - Related Data Home Medications Medication Instructions Recorded Confirmed Albuterol Sulfate [Ventolin HFA] 1 - 2 puff INHALATION RT-Q6H PRN 10/14/20 08/28/21 Previous Rx's Medication Instructions Recorded Melatonin 6 mg PO HS 14 Days tablet 08/30/21 Metoprolol Succinate [Toprol XL] 25 mg PO DAILY 14 Days tab 08/30/21 Nicotine 14Mg/24Hr Patch [Habitrol] 1 patch TRANSDERM DAILY 14 Days 08/30/21 patch Omeprazole [PriLOSEC] 20 mg PO DAILY 14 Days cap 08/30/21 SUMAtriptan succinate [Imitrex] 50 mg PO DAILY PRN 14 Days tab 08/30/21 Spironolactone [Aldactone] 25 mg PO DAILY 14 Days #90 tab 08/30/21 buPROPion HCL [Wellbutrin XL] 300 mg PO DAILY 14 Days tab 08/30/21 busPIRone HCl [Buspar] 15 mg PO BID 14 Days tab 08/30/21 clonazePAM [KlonoPIN] 1 mg PO BID PRN 3 Days #6 tab 08/30/21 lisinopriL [Zestril] 2.5 mg PO DAILY 14 Days #90 tab 08/30/21 Allergies Allergy/AdvReac Type Severity Reaction Status Date / Time atorvastatin [From Lipitor] AdvReac JOINT PAIN Verified 10/28/21 21:09 codeine AdvReac Nausea & Verified 10/28/21 21:09 Vomiting Review of Systems ROS Statement: Those systems with pertinent positive or pertinent negative responses have been documented in the HPI. ROS Other: All systems not noted in ROS Statement are negative. Constitutional: Denies: fever Eyes: Denies: eye pain ENT: Denies: ear pain Respiratory: Denies: cough Cardiovascular: Denies: chest pain Endocrine: Denies: fatigue Gastrointestinal: Denies: abdominal pain Genitourinary: Denies: dysuria Musculoskeletal: Denies: back pain Skin: Denies: rash Neurological: Denies: weakness Psychiatric: Reports: depression, suicidal thoughts Past Medical History Past Medical History: Hypertension, Myocardial Infarction ([place]) Additional Past Medical History / Comment(s): SVT History of Any Multi-Drug Resistant Organisms: None Reported Past Surgical History: No Surgical Hx Reported Additional Past Surgical History / Comment(s): EP study-unable to ablate, bladder neck surgery. Past Anesthesia/Blood Transfusion Reactions: No Reported Reaction Past Psychological History: No Psychological Hx Reported Smoking Status: Current every day smoker Past Alcohol Use History: None Reported Past Drug Use History: None Reported - Past Family History Father Family Medical History: COPD, Diabetes Mellitus, Eye Disorder Additional Family Medical History / Comment(s): Heart problems, vision problems, polio Mother Additional Family Medical History / Comment(s): Heart problems. General Exam Limitations: no limitations General appearance: alert, in no apparent distress Head exam: Present: normocephalic Eye exam: Present: normal appearance Neck exam: Present: normal inspection Respiratory exam: Present: normal lung sounds bilaterally Cardiovascular Exam: Present: regular rate, normal rhythm GI/Abdominal exam: Present: soft. Absent: tenderness Extremities exam: Present: normal inspection Neurological exam: Present: alert Psychiatric exam: Present: normal affect, normal mood Skin exam: Present: normal color Course Vital Signs 10/28/21 10/28/21 19:40 20:34 Temperature 98.1 F Pulse Rate 101 H 90 Respiratory 12 18 Rate Blood Pressure 139/85 113/70 O2 Sat by Pulse 96 95 Oximetry EKG Findings - EKG Comments: EKG Findings:: Sinus cardia 101. CO 152. QRS 81. QT 368. QTC 426. Normal axis. Septal Q waves. No acute ST change. Medical Decision Making - Medical Decision Making Patient reevaluated. Dr. Leroy paged for admission covering hospital observation call. - Lab Data Result diagrams: 10/28/21 20:15 10/28/21 20:15 Lab Results 05/02/22 05/02/22 05/02/22 Range/Units 20:15 20:15 20:15 WBC 11.7 H (3.8-10.6) k/uL RBC 5.38 (4.30-5.90) m/uL Hgb 16.5 (13.0-17.5) gm/dL Hct 49.8 (39.0-53.0) % MCV 92.6 (80.0-100.0) fL MCH 30.7 (25.0-35.0) pg MCHC 33.1 (31.0-37.0) g/dL RDW 13.8 (11.5-15.5) % Plt Count 270 (150-450) k/uL MPV 8.4 Neutrophils % 55 % Lymphocytes % 33 % Monocytes % 4 % Eosinophils % 6 % Basophils % 1 % Neutrophils # 6.4 (1.3-7.7) k/uL Lymphocytes # 3.8 (1.0-4.8) k/uL Monocytes # 0.4 (0-1.0) k/uL Eosinophils # 0.7 (0-0.7) k/uL Basophils # 0.1 (0-0.2) k/uL PT 10.4 (9.0-12.0) sec INR 0.9 (<1.2) Sodium 140 (137-145) mmol/L Potassium 4.2 (3.5-5.1) mmol/L Chloride 106 (98-107) mmol/L Carbon Dioxide 25 (22-30) mmol/L Anion Gap 9 mmol/L BUN 12 (9-20) mg/dL Creatinine 0.88 (0.66-1.25) mg/dL Est GFR (CKD-EPI)AfAm >90 (>60 ml/min/1.73 sqM) Est GFR (CKD-EPI)NonAf >90 (>60 ml/min/1.73 sqM) Glucose 121 H (74-99) mg/dL Calcium 9.2 (8.4-10.2) mg/dL Total Bilirubin 0.9 (0.2-1.3) mg/dL AST 20 (17-59) U/L ALT 20 (4-49) U/L Alkaline Phosphatase 82 (38-126) U/L Total Protein 6.7 (6.3-8.2) g/dL Albumin 3.9 (3.5-5.0) g/dL Salicylates <1.0 mg/dL Acetaminophen <10.0 ug/mL Serum Alcohol <10 mg/dL Disposition Clinical Impression: Drug overdose Disposition: ADMITTED IP TO THIS HOSP Is patient prescribed a controlled substance at d/c from ED?: No Referrals: Madelyn Rea III, MD [Primary Care Provider] - 1-2 days Time of Disposition: 21:16
[2021-10-28 20:23] LABS: Basophils # (A) 0.1 k/uL (0-0.2); Basophils % (A) 1 %; Eosinophils # (A) 0.7 k/uL (0-0.7); Eosinophils % (A) 6 %; HCT 49.8 % (39.0-53.0); HGB 16.5 gm/dL (13.0-17.5); Lymphocytes # (A) 3.8 k/uL (1.0-4.8); Lymphocytes % (A) 33 %; MCH 30.7 pg (25.0-35.0); MCHC 33.1 g/dL (31.0-37.0); MCV 92.6 fL (80.0-100.0); Mean Platelet Volume 8.4; Monocytes # (A) 0.4 k/uL (0-1.0); Monocytes % (A) 4 %; Neutrophils # (A) 6.4 k/uL (1.3-7.7); Neutrophils % (A) 55 %; Platelet Count 270 k/uL (150-450); RBC 5.38 m/uL (4.30-5.90); RDW 13.8 % (11.5-15.5); WBC 11.7 k/uL (3.8-10.6)
[2021-10-28] MEDS ORDERED: SODIUM CHLORIDE 0.9% 1,000 ML IV STA (20:26)
[2021-10-28 20:31] LABS: INR 0.9 (<1.2); Prothrombin Time 10.4 sec (9.0-12.0)
[2021-10-28 20:32] LABS: ALT 20 U/L (4-49); AST 20 U/L (17-59); Acetaminophen <10.0 ug/mL; African American GFR (CKD) >90 (>60 ml/min/1.73 sqM); Albumin 3.9 g/dL (3.5-5.0); Alcohol <10 mg/dL; Alkaline Phosphatase 82 U/L (38-126); Anion Gap 9 mmol/L; Blood Urea Nitrogen 12 mg/dL (9-20); Calcium 9.2 mg/dL (8.4-10.2); Carbon Dioxide 25 mmol/L (22-30); Chloride 106 mmol/L (98-107); Glucose 121 mg/dL (74-99); Non-African American GFR(CKD) >90 (>60 ml/min/1.73 sqM); Potassium 4.2 mmol/L (3.5-5.1); Salicylate <1.0 mg/dL; Sodium 140 mmol/L (137-145); Total Bilirubin 0.9 mg/dL (0.2-1.3); Total Protein 6.7 g/dL (6.3-8.2)
[2021-10-28] MEDS ORDERED: LORazepam 2 MG/ML INJ IV PRN (21:18)
[2021-10-28] MEDS ORDERED: NALOXONE 0.4 MG/ML 1 ML VIAL IV PRN (21:18)
[2021-10-28] MEDS ORDERED: SODIUM CHLORIDE 0.9% 1,000 ML IV SCH (21:30)
[2021-10-29] MEDS ORDERED: ALBUTEROL NEBULIZED 2.5 MG/3 ML INHALATION PRN (00:43)
--- NOTE | 2021-10-29 00:50 | P.HPIM ---
History of Present Illness H&P Date: 10/28/21 Chief Complaint: drug overdose, intentional 50 -year-old male with depression and hypertension Patient has been having hard time with his with a lot of social stressors. He was having depressed mood and decided to commit suicide by overdosing on medications he admits to taking 30 pills of hydroxyzine and a bunch of pills of his lisinopril. His added that he probably took Zofran however he firmly denies taking any Zofran. After taking the medications patient was getting lethargic his noticed that and that's when he told her that he overdosed on the medications so she rushed him to the hospital. Patient does admit to depressed mood he also admits to not taking his prescribed medications as he supposed to for the past couple weeks. He is feeling helpless and hopeless with very depressed emotions denies any hallucinations. Currently denies any homicidal or suicidal ideation. He denies any tobacco smoking drug abuse or heavy alcohol use. He denies committing suicide in the past. Poison control was contacted who recommended IV fluid hydration monitoring Review of Systems Pertinent positives as noted in HPI. All other systems were reviewed and are negative Past Medical History Past Medical History: Hypertension, Myocardial Infarction ([place]) Additional Past Medical History / Comment(s): SVT History of Any Multi-Drug Resistant Organisms: None Reported Past Surgical History: No Surgical Hx Reported Additional Past Surgical History / Comment(s): EP study-unable to ablate, bladder neck surgery. Past Anesthesia/Blood Transfusion Reactions: No Reported Reaction Past Psychological History: No Psychological Hx Reported Smoking Status: Current every day smoker Past Alcohol Use History: None Reported Past Drug Use History: None Reported - Past Family History Father Family Medical History: COPD, Diabetes Mellitus, Eye Disorder Additional Family Medical History / Comment(s): Heart problems, vision problems, polio Mother Additional Family Medical History / Comment(s): Heart problems. Medications and Allergies Home Medications Medication Instructions Recorded Confirmed Type Albuterol Sulfate [Ventolin HFA] 1 - 2 puff INHALATION RT-Q6H PRN 10/14/20 10/28/21 History Metoprolol Succinate [Toprol XL] 25 mg PO DAILY 14 Days tab 08/30/21 10/28/21 Rx Omeprazole [PriLOSEC] 20 mg PO DAILY 14 Days cap 08/30/21 10/28/21 Rx SUMAtriptan succinate [Imitrex] 50 mg PO DAILY PRN 14 Days tab 08/30/21 10/28/21 Rx Spironolactone [Aldactone] 25 mg PO DAILY 14 Days #90 tab 08/30/21 10/28/21 Rx buPROPion HCL [Wellbutrin XL] 300 mg PO DAILY 14 Days tab 08/30/21 10/28/21 Rx busPIRone HCl [Buspar] 15 mg PO BID 14 Days tab 08/30/21 10/28/21 Rx lisinopriL [Zestril] 2.5 mg PO DAILY 14 Days #90 tab 08/30/21 10/28/21 Rx Clopidogrel [Plavix] 75 mg PO DAILY 10/28/21 10/28/21 History Melatonin 6 mg PO HS PRN 10/28/21 10/28/21 History Nicotine 14Mg/24Hr Patch [Habitrol] 1 patch TRANSDERM DAILY PRN 10/28/21 10/28/21 History Ondansetron [Zofran] 4 mg PO Q6H PRN 10/28/21 10/28/21 History hydrOXYzine HCL [Atarax] 25 mg PO Q6H PRN 10/28/21 10/28/21 History Allergies Allergy/AdvReac Type Severity Reaction Status Date / Time atorvastatin [From Lipitor] AdvReac JOINT PAIN Verified 10/28/21 21:28 codeine AdvReac Nausea & Verified 10/28/21 21:28 Vomiting Physical Exam Vitals: Vital Signs Temp Pulse Resp BP Pulse Ox 10/29/21 00:31 62 14 89/62 95 10/28/21 23:20 58 L 15 94/63 95 10/28/21 22:31 60 16 95/59 95 10/28/21 21:45 78 14 101/63 95 10/28/21 21:15 80 14 90/69 10/28/21 20:34 90 18 113/70 95 10/28/21 19:40 98.1 F 101 H 12 139/85 96 Intake and Output 10/28/21 10/28/21 10/29/21 14:59 22:59 06:59 Other: Weight 99.79 kg Constitutional: No acute distress, conversant, pleasant Eyes: Anicteric sclerae, moist conjunctiva, Pupils equal round reactive to light ENMT: NC/AT Oropharynx clear, no erythema, or exudates Neck: Supple, FROM, no masses, or JVD No carotid bruits No thyromegaly Lungs: Clear to auscultation Clear to percussion Normal respiratory effort, no accessory muscle use Cardiovascular: Heart regular in rate and rhythm, No murmurs, gallops, or rubs No peripheral edema Abdominal: Soft Nontender, no guarding, rebound or rigidity Abdomen moving with respiration Normoactive bowel sounds No hepatomegaly, No splenomegaly No palpable mass No abdominal wall hernia noted Skin: Normal temperature, tone, texture, turgor No induration No subcutaneous nodules No rash, lesions No ulcers Extremities: No digital cyanosis No clubbing Pedal pulses intact and symmetrical Radial pulses intact and symmetrical No calf tenderness Psychiatric: Alert and oriented to person, place and time Depressed affect Neuro Muscles Strength 4/5 in all 4 extremities Sensation to light touch grossly present throughout Cranial nerves II-XII grossly intact No focal sensory deficits Lymphatics: no palpable cervical or supraclavicular , or inguinal lymph nodes Results CBC & Chem 7: 10/28/21 20:15 10/28/21 20:15 Labs: Abnormal Lab Results - Last 24 Hours (Table) 10/28/21 10/28/21 Range/Units 20:15 20:15 WBC 11.7 H (3.8-10.6) k/uL Glucose 121 H (74-99) mg/dL Assessment and Plan Assessment: Intentional drug overdose and a suicidal attempt Depressed emotions Suicide precautions IV fluid hydration with normal saline Cardiac monitoring Monitor vital signs Psych eval Seizure precautions Fall precautions Neurochecks Chronic conditions Hypertension Resume metoprolol Continue to hold lisinopril for now due to overdose on lisinopril Follow-up renal function in the morning liver function and CBC Full code Heparin subcu 3 times a day for DVT prophylaxis Anticipated length of stay less than 2 midnights
[2021-10-29 06:38] VITALS: TEMP 97.8
[2021-10-29 07:07] LABS: Amphetamine Screen,Urine Not Detected (NotDetected); Barbiturate Screen,Urine Not Detected (NotDetected); Benzodiazepines Screen,Urine Not Detected (NotDetected); Cocaine Screen,Urine Not Detected (NotDetected); Methadone Screen, Urine Not Detected (NotDetected); Opiate Screen,Urine Not Detected (NotDetected); Oxycodone Screen, Urine Not Detected (NotDetected); Phencyclidine Screen,Urine Not Detected (NotDetected); Tricyclic Antidepressant,Urine Not Detected (NotDetected); Urn Cannabinoid Scrn Not Detected (NotDetected)
[2021-10-29] MEDS ORDERED: PANTOPRAZOLE 40 MG TABLET PO SCH (07:30)
[2021-10-29] MEDS ORDERED: HEPARIN SODIUM,PORCINE/PF 5,000 UNIT/0.5 ML SYRINGE SQ SCH (08:00)
[2021-10-29] MEDS ORDERED: METOPROLOL SUCCINATE (ER) 25 MG TAB.ER.24H PO SCH (09:00)
[2021-10-29] MEDS ORDERED: CLOPIDOGREL 75 MG TAB PO SCH (09:00)
[2021-10-29 09:14] LABS: Basophils # (A) 0.12 X 10*3/uL (0.00-0.10); Eosinophils # (A) 0.73 X 10*3/uL (0.04-0.35); Eosinophils % (A) 6.3 %; HCT 46.4 % (39.6-50.0); HGB 15.4 g/dL (13.0-17.0); Immature Grans, Automated 0.7 %; Lymphocytes # (A) 4.64 X 10*3/uL (0.90-5.00); Lymphocytes % (A) 39.8 %; MCH 30.1 pg (27.0-32.0); MCHC 33.2 g/dL (32.0-37.0); MCV 90.8 fL (80.0-97.0); Mean Platelet Volume 11.4 fL (9.5-12.2); Monocytes # (A) 0.84 X 10*3/uL (0.20-1.00); Monocytes % (A) 7.2 %; NRBC Per 100 WBC 0 /100 WBCS (0.0-0.0); Neutrophils # (A) 5.25 X 10*3/uL (1.80-7.70); Platelet Count 247 X 10*3/uL (140-440); RBC 5.11 X 10*6/uL (4.40-5.60); RDW 14.1 % (11.5-14.5); WBC 11.66 X 10*3/uL (4.50-10.00)
[2021-10-29 09:35] LABS: African American GFR (CKD) 115.8 (60.0-200.0); Albumin 3.7 g/dL (3.8-4.9); Albumin/Globulin Ratio 1.76 (1.60-3.17); Anion Gap 8.7 mmol/L (10.00-18.00); BUN/Creat Ratio 10.89 Ratio (12.00-20.00); Blood Urea Nitrogen 9.8 mg/dL (9.0-27.0); Calcium 8.7 mg/dL (8.7-10.3); Carbon Dioxide 23.3 mmol/L (20.0-27.5); Globulin 2.1 g/dL (1.6-3.3); Non-African American GFR(CKD) 99.9 (60.0-200.0); Potassium 4.6 mmol/L (3.5-5.5); Total Bilirubin 0.6 mg/dL (0.30-1.20); Total Protein 5.8 g/dL (6.2-8.2)
[2021-10-29 12:16] VITALS: PULSE 68
--- NOTE | 2021-10-29 13:40 | P.CN ---
Psychiatric Consult - . Consult date: 10/29/21 Consult:: 10/29/21 12:00 IDENTIFYING DATA: Patient is a 50 yo male who currently lives with , has 3 kids, currently lives in a house. 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 Patient apparently had overdosed on 2 handfuls of Vistaril at home. He apparently claims that it was a suicide attempt according to ER report. Patient was also endorsing depression and also personal problems with his at home. He states that they have been arguing more lately and things have been "building up". He claims that he was trying to move out of the house to live with his brother. He states that he try to call his brother however his took away his phone. He states that he was trying to move to [place]. He claims that he is feeling worthless and having communication issues with his . He claims that his has been being negative towards him. He states that he overdosed in the living room when she was not there and came to the hospital afterwards. He states that he hasn't talked to her since coming in. He claims that "the meds stopped working" and claimed that he has been off them for several weeks now. He states that his sleep has been poor. Patient denies any current suicidal or homicidal ideations intent or plan. At this time patient denies any auditory or visual hallucinations. Patient denies any flight of ideas racing thoughts and increased in goal directed behavior. Patient admits to using edibles approximately once every other month. He admits to cigarette use. He states that if he were to go home "the same thing would happen" referring to suicide attempt. PAST PSYCHIATRIC HISTORY: Patient states that he has a history of depression and anxiety. He claims that he is on Vistaril, Wellbutrin and Klonopin. Patient was previously psychiatrically hospitalized on the mental health unit in August 2021. Patient denies any psychiatric outpatient follow-up however was supposed to follow-up at [facility]. He states that he did attempt to cut his wrist when he was 20 years old after a breakup with his girlfriend at that time. Past Medical History: Hypertension Additional Past Medical History / Comment(s): SVT ALLERGIES: as per EMR CHEMICAL DEPENDENCY HISTORY: as per HPI FAMILY PSYCHIATRIC/SUBSTANCE USE HISTORY: States that his brother has bipolar disorder. SOCIAL HISTORY: Patient was born and raised in [place] and also in [place]. He states that he completed up to the 12th grade in school. He claims that he does not have any legal history. He has 3 kids that are grown and moved away. He states that he lives with his and also a homeless girl that they are taking in an caring for. 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 MENTAL STATUS EXAM: General Appearance: Patient appears to be well-built, stated age is alert, directable, and attempts to cooperate. Patient appears to have poor hygiene and grooming. Behavior: Patient is seated without any agitated behavior. Attempts to cooperate. Evasive at times. Speech: Patient's speech is fluent and nonpressured. Mood/Affect: Patient reports their mood is depressed and anxious, affect is congruent and constricted. Suicidality/Homicidality: Patient denies having any homicidal ideation intent or plan. Denies any suicidal ideations intent or plan Perceptions: Patient denies any visual hallucinations and denies any auditory hallucinations Though content/process: There is no evidence of any delusional thought content and thought process is linear and goal-directed. Catastrophizing. Memory and concentration: AOX3, grossly intact for the purposes of this session. Can spell "WORLD" backwards Judgment and insight: Poor STRENGTHS/WEAKNESSES: strength is that patient is resilient. Weakness is that patient has poor judgment and is impulsive INTELLECT: average IMPRESSIONS: Depressive disorder unspecified, likely adjustment disorder versus major depressive disorder Generalized anxiety disorder Nicotine dependence PLAN: -At this time patient DOES meet criteria for inpatient psychiatric admission. -Would recommend the following medication changes/additions: At this time we'll hold off on psychiatric medications until patient is admitted to the mental health floor. -Continue 1:1 sitter for safety -Cannot leave AMA at this time. Patient will need a petition and certification if attempting to leave AMA. -When medically stable, patient is eligible for transfer to a psych bed when available. -Communicated plan to patient's nurse -Psychiatry will sign off at this time -Please contact with any questions.
[2021-10-29 14:53] VITALS: BP 113/78; RESP 16
--- NOTE | 2021-10-29 17:39 | P.DS ---
Providers Date of admission: 10/28/21 21:18 Expected date of discharge: 10/29/21 Attending physician: Sunni Robledo MD Consults: 10/28/21 21:18 Consult Physician Routine Consulting Provider: Daniel Faulkner Consult Reason/Comments: Attempted suicide Do you want consulting provider notified?: Yes Primary care physician: [facility] Course: 50 -year-old male with depression and hypertension Patient has been having hard time with his with a lot of social stressors. He was having depressed mood and decided to commit suicide by overdosing on medications he admits to taking 30 pills of hydroxyzine and a bunch of pills of his lisinopril. His added that he probably took Zofran however he firmly denies taking any Zofran. After taking the medications patient was getting lethargic his noticed that and that's when he told her that he overdosed on the medications so she rushed him to the hospital. Patient does admit to depressed mood he also admits to not taking his prescribed medications as he supposed to for the past couple weeks. He is feeling helpless and hopeless with very depressed emotions denies any hallucinations. Currently denies any homicidal or suicidal ideation. He denies any tobacco smoking drug abuse or heavy alcohol use. He denies committing suicide in the past. Poison control was contacted who recommended IV fluid hydration monitoring Patient was hydrated with normal saline at 150 mL per hour. He was restarted back on his home medication. He was hemodynamically stable. Psychiatry evaluated the patient and recommended inpatient psych. Patient was agreeable. He was medically cleared for discharge. He is awaiting bed in the mental health unit at [facility]. General: [non toxic], [no distress], [appears at stated age] Derm: [warm], [dry] Head: [atraumatic], [normocephalic], [symmetric] Eyes: [EOMI], [no lid lag], [anicteric sclera] Mouth: [no lip lesion], [mucus membranes moist] Cardiovascular: [S1S2 reg], [no murmur] Lungs: [CTA bilateral], [no rhonchi, no rales] , [no accessory muscle use] Ext: [no gross muscle atrophy], [no edema], [no contractures] Neuro: [no focal neuro deficits] Psych: [Alert], [oriented], [appropriate affect] Discharge diagnosis: #Intentional drug overdose #Suicidal attempt #Leukocytosis Chronic conditions: Hypertension, CAD Procedures: EKG Patient Condition at Discharge: Stable Plan - Discharge Summary Discharge Rx Participant: No New Discharge Prescriptions: No Action busPIRone HCl [Buspar] 15 mg PO BID 14 Days tab Spironolactone [Aldactone] 25 mg PO DAILY 14 Days #90 tab Omeprazole [PriLOSEC] 20 mg PO DAILY 14 Days cap Metoprolol Succinate [Toprol XL] 25 mg PO DAILY 14 Days tab lisinopriL [Zestril] 2.5 mg PO DAILY 14 Days #90 tab hydrOXYzine HCL [Atarax] 25 mg PO Q6H PRN PRN Reason: Anxiety Albuterol Sulfate [Ventolin HFA] 1 - 2 puff INHALATION RT-Q6H PRN PRN Reason: Shortness Of Breath SUMAtriptan succinate [Imitrex] 50 mg PO DAILY PRN 14 Days tab PRN Reason: Migraine Headache buPROPion HCL [Wellbutrin XL] 300 mg PO DAILY 14 Days tab Clopidogrel [Plavix] 75 mg PO DAILY Melatonin 6 mg PO HS PRN PRN Reason: sleep Nicotine 14Mg/24Hr Patch [Habitrol] 1 patch TRANSDERM DAILY PRN PRN Reason: Nicotine Cravings Ondansetron [Zofran] 4 mg PO Q6H PRN PRN Reason: Nausea Discharge Medication List Albuterol Sulfate [Ventolin HFA] 1 - 2 puff INHALATION RT-Q6H PRN 10/14/20 [History] Metoprolol Succinate [Toprol XL] 25 mg PO DAILY 14 Days tab 08/30/21 [Rx] Omeprazole [PriLOSEC] 20 mg PO DAILY 14 Days cap 08/30/21 [Rx] SUMAtriptan succinate [Imitrex] 50 mg PO DAILY PRN 14 Days tab 08/30/21 [Rx] Spironolactone [Aldactone] 25 mg PO DAILY 14 Days #90 tab 08/30/21 [Rx] buPROPion HCL [Wellbutrin XL] 300 mg PO DAILY 14 Days tab 08/30/21 [Rx] busPIRone HCl [Buspar] 15 mg PO BID 14 Days tab 08/30/21 [Rx] lisinopriL [Zestril] 2.5 mg PO DAILY 14 Days #90 tab 08/30/21 [Rx] Clopidogrel [Plavix] 75 mg PO DAILY 10/28/21 [History] Melatonin 6 mg PO HS PRN 10/28/21 [History] Nicotine 14Mg/24Hr Patch [Habitrol] 1 patch TRANSDERM DAILY PRN 10/28/21 [History] Ondansetron [Zofran] 4 mg PO Q6H PRN 10/28/21 [History] hydrOXYzine HCL [Atarax] 25 mg PO Q6H PRN 10/28/21 [History] Follow up Appointment(s)/Referral(s): Madelyn Rea III, MD [Primary Care Provider] - 1-2 days Discharge Disposition: TRANSFER TO PSYCH HOSP/UNIT
== END 2021-10-29 19:02 ==
LOC: EC 19:37 → 6NMEDSUR 21:18
PROVIDERS: ADMIT Internal Medicine; ATTEND Internal Medicine
DX: T46.4X2A Poisoning by angiotensin-converting-enzyme inhibitors, intentional self-harm, initial encounter (principal); T43.592A Poisoning by other antipsychotics and neuroleptics, intentional self-harm, initial encounter; F41.1 Generalized anxiety disorder; F32.A Depression, unspecified; Z63.0 Problems in relationship with spouse or partner; R45.851 Suicidal ideations; I10 Essential (primary) hypertension; I25.10 Atherosclerotic heart disease of native coronary artery without angina pectoris; I25.2 Old myocardial infarction; I47.1 Supraventricular tachycardia; D72.829 Elevated white blood cell count, unspecified; F17.200 Nicotine dependence, unspecified, uncomplicated; Z20.822 Contact with and (suspected) exposure to COVID-19; Z79.02 Long term (current) use of antithrombotics/antiplatelets; Z79.899 Other long term (current) drug therapy; Z88.5 Allergy status to narcotic agent; Z88.8 Allergy status to other drugs, medicaments and biological substances; Z98.890 Other specified postprocedural states; Z83.3 Family history of diabetes mellitus; Z82.5 Family history of asthma and other chronic lower respiratory diseases; Z82.69 Family history of other diseases of the musculoskeletal system and connective tissue; Z82.1 Family history of blindness and visual loss; Z81.8 Family history of other mental and behavioral disorders
CPT/HCPCS: 82075; 96360; 96372; 99285; 36415; 93005; 80053 ×2; 85025 ×2; 85610; 80306; 80143; 87635; 80179; G0378 ×2; G0480; J1644; 80320

== ENCOUNTER 2021-10-29 17:37 | Inpatient (IN) | payer BC, MEDICAID, OTHER ==
[2021-10-29] MEDS ORDERED: NICOTINE 14MG/24HR PATCH TRANSDERM PRN (20:00)
[2021-10-29] MEDS ORDERED: MELATONIN 3 MG TABLET PO PRN (20:00)
[2021-10-29] MEDS ORDERED: ALBUTEROL INHALER 60 PUFF/8 GM INHALER (MHU) INHALATION PRN (20:00)
[2021-10-29] MEDS ORDERED: LORazepam 1 MG TAB PO PRN (20:07)
[2021-10-29] MEDS ORDERED: ACETAMINOPHEN TAB 325 MG TAB PO PRN (20:07)
[2021-10-29] MEDS ORDERED: MAG HYDROX/AL HYDROX/SIMETH 30 ML CUP PO PRN (20:07)
[2021-10-29] MEDS ORDERED: HALOPERIDOL LACTATE 5 MG/ML 1 ML VIAL IM PRN (20:07)
[2021-10-29] MEDS ORDERED: MAGNESIUM HYDROXIDE 2,400 MG/10 ML CUP PO PRN (20:07)
[2021-10-29] MEDS ORDERED: haloperidoL 5 MG TAB PO PRN (20:10)
[2021-10-29] MEDS ORDERED: LORazepam 2 MG/ML INJ IM PRN (20:10)
[2021-10-30] MEDS: METOPROLOL SUCCINATE (ER) 25 MG TAB.ER.24H PO SCH (08:56)
[2021-10-30] MEDS: CLOPIDOGREL 75 MG TAB PO SCH (08:56)
[2021-10-30 09:41] LABS: Chol/HDL Ratio 5.17 Ratio; LDL Cholesterol,Calculated 122.6 mg/dL (0.0-131.0)
[2021-10-30] MEDS ORDERED: SUMAtriptan succinate 50 MG TAB PO PRN (11:19)
--- NOTE | 2021-10-30 11:24 | P.HP ---
Psychiatric H&P - . H&P Date: 10/30/21 History & Physical: Allergies Allergy/AdvReac Type Severity Reaction Status Date / Time atorvastatin From Lipitor AdvReac JOINT PAIN Verified 10/29/21 19:50 codeine AdvReac Nausea & Verified 10/29/21 19:50 Vomiting Vital Signs Temp 96.6 F L 10/29/21 19:30 Pulse 84 10/29/21 19:30 Resp 20 10/29/21 19:30 BP 149/83 10/29/21 19:30 Pulse Ox Intake & Output 10/29/21 10/30/21 10/30/21 18:59 06:59 18:59 Intake Total 24 Balance 24 Weight 99.79 kg Intake: Oral 24 Laboratory Last Values Estimated Ave Glu mg/dL 122 10/29/21 04:34 Hemoglobin A1c 5.9 % (0.0-6.0) 10/29/21 04:34 Triglycerides 141.00 mg/dL (0.00-149.00) 10/29/21 04:34 Cholesterol 187.00 mg/dL (0.00-200.00) 10/29/21 04:34 LDL Cholesterol, Calc 122.6 mg/dL (0.0-131.0) 10/29/21 04:34 VLDL Cholesterol, Calc 28.20 mg/dL (5.00-40.00) 10/29/21 04:34 HDL Cholesterol 36.20 mg/dL (40.00-60.00) L 10/29/21 04:34 Cholesterol/HDL Ratio 5.17 Ratio 10/29/21 04:34 TSH 8.270 mIU/L (0.465-4.680) H 10/29/21 04:34 10/30/21 11:15 IDENTIFYING DATA: Patient is a 50 yo male who currently lives with , has 3 kids, currently lives in a house. 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 Patient was seen by telegraphic typewriter mechanic in the ER yesterday for psych consult. patient apparently had overdosed on 2 handfuls of Vistaril at home. He apparently claims that it was a suicide attempt according to ER report. Patient was also endorsing depression and also personal problems with his at home. He states that they have been arguing more lately and things have been "building up". He claims that he was trying to move out of the house to live with his brother. He states that he try to call his brother however his took away his phone. He states that he was trying to move to [place]. He claims that he is feeling worthless and having communication issues with his . He claims that his has been being negative towards him. He states that he overdosed in the living room when she was not there and came to the hospital afterwards. He states that he hasn't talked to her since coming in. He claims that "the meds stopped working" and claimed that he has been off them for several weeks now. He states that his sleep has been poor. Patient was admitted voluntarily to the mental health unit last night. Patient was seen today again for psychiatric evaluation and claims that he still feeling depressed and suicidal however does not endorse a specific plan. He spoke about not wanting to live anymore and also having to put his dog down a couple weeks ago which has made him very sad and and he was crying when he was speaking about this. He also believes that he is feeling hopeless and worthless continues to endorse problems with his . He has not spoken to her since he came up on the unit. He claims that he has been having poor sleep and poor appetite. He is willing to try medications. Patient denies any current homicidal ideations intent or plan. At this time patient denies any auditory or visual hallucinations. Patient denies any flight of ideas racing thoughts and increased in goal directed behavior. Patient admits to using edibles approximately once every other month. He admits to cigarette use. He states that if he were to go home "the same thing would happen" referring to suicide attempt. PAST PSYCHIATRIC HISTORY: Patient states that he has a history of depression and anxiety. He claims that he is on Vistaril, Wellbutrin and Klonopin. Patient was previously psychiatrically hospitalized on the mental health unit in August 2021. Patient denies any psychiatric outpatient follow-up however was supposed to follow-up at [facility]. He states that he did attempt to cut his wrist when he was 20 years old after a breakup with his girlfriend at that time. Past Medical History: Hypertension Additional Past Medical History / Comment(s): SVT ALLERGIES: as per EMR CHEMICAL DEPENDENCY HISTORY: as per [facility] FAMILY PSYCHIATRIC/SUBSTANCE USE HISTORY: States that his brother has bipolar disorder. SOCIAL HISTORY: Patient was born and raised in [place] and also in [place]. He states that he completed up to the 12th grade in school. He claims that he does not have any legal history. He has 3 kids that are grown and moved away. He states that he lives with his and also a homeless girl that they are taking in an caring for. 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 MENTAL STATUS EXAM: General Appearance: Patient appears to be well-built, stated age is alert, directable, and attempts to cooperate. Patient appears to have improving hygiene and grooming. Behavior: Patient is seated without any agitated behavior. Attempts to cooperate. Tearful at times. Speech: Patient's speech is fluent and nonpressured. Mood/Affect: Patient reports their mood is depressed and anxious, affect is congruent and constricted. Suicidality/Homicidality: Patient denies having any homicidal ideation intent or plan. Denies any suicidal ideations intent or plan Perceptions: Patient denies any visual hallucinations and denies any auditory hallucinations Though content/process: There is no evidence of any delusional thought content and thought process is linear and goal-directed. Catastrophizing. Memory and concentration: AOX3, grossly intact for the purposes of this session. Can spell "WORLD" backwards Judgment and insight: Poor STRENGTHS/WEAKNESSES: strength is that patient is resilient. Weakness is that patient has poor judgment and is impulsive INTELLECT: average IMPRESSIONS: Major depressive disorder, severe, recurrent Generalized anxiety disorder Nicotine dependence PLAN: -Patient is admitted under voluntary status to MHU for stabilization of psychiatric symptoms and safety. Patient has signed adult voluntary form and med ication consent and is placed in patient's chart. -Medications : Will start patient on Cymbalta 30 mg daily for mood/anxiety/pain, Seroquel 50 mg daily at bedtime for mood adjunct/insomnia/appetite. -Ativan and Haldol PRN for agitation/aggression -Patient was informed of the risks, benefits and side effects of the medication and patient verbally consented to taking the medications. Patient signed med consent form and was placed in chart. -Internal Medicine consult to perform medical evaluation and physical. -NRT - nicotine patch -SW on board for discharge planning. Encourage patient to participate in groups to work on coping skills.
[2021-10-30] MEDS: SPIRONOLACTONE 25 MG TAB PO SCH (11:58)
[2021-10-30] MEDS: PANTOPRAZOLE 40 MG TABLET PO SCH (11:58)
[2021-10-30] MEDS: DULoxetine HCL 30 MG CAPSULE.DR PO SCH (11:58)
[2021-10-30 12:16] VITALS: BMI 30.7
[2021-10-30] MEDS ORDERED: QUEtiapine 50 MG TAB PO SCH (21:00)
--- NOTE | 2021-10-30 23:15 | P.CONS ---
History of Present Illness - History of Present Illness This is a pleasant 50 years old male with past medical history of coronary a rtery disease status post stent, hypertension, SVT Patient was admitted to the psych unit for major depressive disorder and generalized anxiety disorder. Medical consult has been requested for routine medical evaluation. Patient was walking the hallway with no difficulty. He denies any specific symptoms. He denies chest pain or dyspnea. No change in urine or bowel habits. No fever. He's smokes cigarettes but denies alcohol or illicit drugs Hemoglobin A1c 5.9, cholesterol 187. LDL 122. TSH 8.2, free T4 is normal 1.0 Review of Systems CONSTITUTIONAL: No fever, no malaise, no fatigue. HEENT: No recent visual problems or hearing problems. Denied any sore throat. CARDIOVASCULAR: No orthopnea, PND, no palpitations, no syncope. PULMONARY: No shortness of breath, no cough, no hemoptysis. GASTROINTESTINAL: No diarrhea, no nausea, no vomiting, no abdominal pain. Normoactive bowel sounds. NEUROLOGICAL: No headaches, no weakness, no numbness. HEMATOLOGICAL: Denies any bleeding or petechiae. GENITOURINARY: Denies any burning micturition, frequency, or urgency. MUSCULOSKELETAL/RHEUMATOLOGICAL: Denies any joint pain, swelling, or any muscle pain. ENDOCRINE: Denies any polyuria or polydipsia. Past Medical History Past Medical History: Coronary Artery Disease (CAD), Hypertension, Myocardial Infarction (UT), Supraventricular Tachycardia (SVT) Additional Past Medical History / Comment(s): Past difficulty urinating/UTIs and had bladder neck surgery, covid 09/2020. Last Myocardial Infarction Date:: 09/2020 History of Any Multi-Drug Resistant Organisms: None Reported Past Surgical History: Heart Catheterization With Stent Additional Past Surgical History / Comment(s): EP study-unable to ablate, bladder neck surgery. Past Anesthesia/Blood Transfusion Reactions: No Reported Reaction Date of Last Stent Placement:: 10/14/20 Past Psychological History: Depression Additional Psychological History / Comment(s): Pt resides with his spouse/children. He is independent. He is suicidal. Smoking Status: Current every day smoker Past Alcohol Use History: None Reported Additional Past Alcohol Use History / Comment(s): Pt started smoking in 1988 and is a half ppd smoker. Past Drug Use History: None Reported - Past Family History Father Family Medical History: COPD, Diabetes Mellitus, Eye Disorder Additional Family Medical History / Comment(s): Heart problems, vision problems, polio Mother Additional Family Medical History / Comment(s): Heart problems. Medications and Allergies Home Medications Medication Instructions Recorded Confirmed Type Albuterol Sulfate [Ventolin HFA] 1 - 2 puff INHALATION RT-Q6H PRN 10/14/20 10/29/21 History Metoprolol Succinate [Toprol XL] 25 mg PO DAILY 14 Days tab 08/30/21 10/29/21 Rx Omeprazole [PriLOSEC] 20 mg PO DAILY 14 Days cap 08/30/21 10/29/21 Rx SUMAtriptan succinate [Imitrex] 50 mg PO DAILY PRN 14 Days tab 08/30/21 10/29/21 Rx Spironolactone [Aldactone] 25 mg PO DAILY 14 Days #90 tab 08/30/21 10/29/21 Rx buPROPion HCL [Wellbutrin XL] 300 mg PO DAILY 14 Days tab 08/30/21 10/29/21 Rx busPIRone HCl [Buspar] 15 mg PO BID 14 Days tab 08/30/21 10/29/21 Rx lisinopriL [Zestril] 2.5 mg PO DAILY 14 Days #90 tab 08/30/21 10/29/21 Rx Clopidogrel [Plavix] 75 mg PO DAILY 10/28/21 10/29/21 History Melatonin 6 mg PO HS PRN 10/28/21 10/29/21 History Nicotine 14Mg/24Hr Patch [Habitrol] 1 patch TRANSDERM DAILY PRN 10/28/21 10/29/21 History Ondansetron [Zofran] 4 mg PO Q6H PRN 10/28/21 10/29/21 History Allergies Allergy/AdvReac Type Severity Reaction Status Date / Time atorvastatin [From Lipitor] AdvReac JOINT PAIN Verified 10/29/21 19:50 codeine AdvReac Nausea & Verified 10/29/21 19:50 Vomiting Physical Exam Vitals: Vital Signs Temp Pulse Resp BP 10/29/21 19:30 96.6 F L 84 20 149/83 Intake and Output 10/29/21 10/30/21 10/30/21 22:59 06:59 14:59 Intake Total 24 Balance 24 Intake: Oral 24 Other: Weight 99.79 kg GENERAL: The patient is alert and oriented x3, not in any acute distress. Well developed, well nourished. HEENT: Pupils are round and equally reacting to light. EOMI. No scleral icterus. No conjunctival pallor. Normocephalic, atraumatic. No pharyngeal erythema. No thyromegaly. CARDIOVASCULAR: S1 and S2 present. No murmurs, rubs, or gallops. PULMONARY: Chest is clear to auscultation, no wheezing or crackles. ABDOMEN: Soft, nontender, nondistended, normoactive bowel sounds. No palpable organomegaly. MUSCULOSKELETAL: No joint swelling or deformity. EXTREMITIES: No cyanosis, clubbing, or pedal edema. NEUROLOGICAL: Gross neurological examination did not reveal any focal deficits. SKIN: No rashes. No petechiae Results Labs: Abnormal Lab Results - Last 24 Hours (Table) 10/29/21 Range/Units 04:34 HDL Cholesterol 36.20 L (40.00-60.00) mg/dL TSH 8.270 H (0.465-4.680) mIU/L Assessment and Plan Assessment: -Depression, anxiety and other psychiatric illnesses: Management as per psych primary team -Coronary artery disease status post stent -Hypertension -History of SVT -Nicotine dependence - Subclinical hypothyroidism, we recommend to check TSH and T4 in one month after discharge Patient is low risk for DVT, he is mobile. We recommend patient follow up with PCP in one week after discharge, he was instructed with the same For consulting us
[2021-10-31 06:44] VITALS: RESP 16; TEMP 97.5
[2021-10-31] MEDS: SPIRONOLACTONE 25 MG TAB PO SCH (07:58)
[2021-10-31] MEDS: DULoxetine HCL 30 MG CAPSULE.DR PO SCH (07:58)
[2021-10-31] MEDS: PANTOPRAZOLE 40 MG TABLET PO SCH (07:58)
[2021-10-31] MEDS: CLOPIDOGREL 75 MG TAB PO SCH (07:59)
[2021-10-31] MEDS: METOPROLOL SUCCINATE (ER) 25 MG TAB.ER.24H PO SCH (07:59)
[2021-10-31 08:00] VITALS: BP 110/74; PULSE 84
--- NOTE | 2021-10-31 10:17 | P.PN ---
Progress Note - Text Progress Note Date: 10/31/21 Interval History: Patient was seen wandering the hallways and was directable and agreeable to kristin miller with advertising copywriter in the office. Patient claims that he is doing better today overall. He states that his mood and anxiety been improving. He did state that he spoke with his over the phone yesterday and she came in to see him and he states that they did not argue and they spoke well together. He states that he does like the medication is not reporting any side effects today. He claims that he did not get much sleep last night and claims that he is a "fast metabolizer of everything". She claims that his appetite has been gradually improving as well. He is trying to attend most groups. At this time patient denies any suicidal or homical ideations, intent or plan. Patient denies any auditory, visual hallucinations and denies any paranoia or delusions. Patient denies any side effects from the medications and has been compliant with meds. Mental Status Exam: General Appearance: Patient appears to be well-built, stated age is alert, directable, and attempts to cooperate. Patient appears to have improving hygiene and grooming. Behavior: Patient is seated without any agitated behavior. Attempts to cooperate Speech: Patient's speech is fluent and nonpressured. Mood/Affect: Patient reports their mood is improving mildly, affect is congruent and constricted Suicidality/Homicidality: Patient denies having any homicidal ideation intent or plan. Denies any suicidal ideations intent or plan Perceptions: Patient denies any visual hallucinations and denies any auditory hallucinations Though content/process: There is no evidence of any delusional thought content and thought process is linear and goal-directed. Memory and concentration: AOX3, grossly intact for the purposes of this session Judgment and insight: improving mildly Assessment Major depressive disorder, severe, recurrent Generalized anxiety disorder Nicotine dependence Plan: -Patient continues to meet criteria for inpatient psychiatric admission for symptom stabilization and safety. Patient has not signed adult voluntary form and medication consent and was placed in patient's chart. -Medications: increase Cymbalta 60 mg daily for mood/anxiety/pain, increase Seroquel 100 mg daily at bedtime for mood adjunct/insomnia/appetite. -When necessary Ativan and Haldol for agitation/aggression. -NRT - nicotine patch -SW on board for discharge planning. Encouraged the patient to participate in milieu. likely discharge tomorrow. SW to call and coordinate discharge planning for tomorrow.
[2021-10-31] MEDS ORDERED: QUEtiapine 100 MG TAB PO SCH (21:00)
[2021-11-01] MEDS: PANTOPRAZOLE 40 MG TABLET PO SCH (08:31)
[2021-11-01] MEDS: CLOPIDOGREL 75 MG TAB PO SCH (08:31)
[2021-11-01] MEDS: METOPROLOL SUCCINATE (ER) 25 MG TAB.ER.24H PO SCH (08:31)
[2021-11-01] MEDS: SPIRONOLACTONE 25 MG TAB PO SCH (08:31)
[2021-11-01] MEDS ORDERED: DULoxetine HCL 60 MG CAPSULE.DR PO SCH (09:00)
--- NOTE | 2021-11-01 09:56 | P.DS ---
Providers Date of admission: 10/29/21 18:58 Expected date of discharge: 11/01/21 Attending physician: Christian Thomason MD Consults: 10/29/21 20:07 Consult Physician Routine Consulting Provider: Gudelia Gardner Consult Reason/Comments: H&P and medical Do you want consulting provider notified?: Yes Primary care physician: Christian Thomason MD - Discharge Diagnosis(es) (1) Major depressive disorder, recurrent Current Visit: Yes Status: Acute Priority: High (2) Generalized anxiety disorder Current Visit: Yes Status: Acute Priority: Medium (3) Nicotine dependence Current Visit: Yes Status: Acute Priority: Low Hospital Course: Admission HPI: Admission note was completed by engineering technical writer "Patient is a 50 yo male who currently lives with , has 3 kids, currently lives in a house. 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 Patient presented to the hospital initially complaining of depression and after a suicide attempt. Patient was seen by engineering technical writer in the ER yesterday for psych consult. patient apparently had overdosed on 2 handfuls of Vistaril at home. He apparently claims that it was a suicide attempt according to ER report. Patient was also endorsing depression and also personal problems with his at home. He states that they have been arguing more lately and things have been "building up". He claims that he was trying to move out of the house to live with his brother. He states that he try to call his brother however his took away his phone. He states that he was trying to move to [place]. He claims that he is feeling worthless and having communication issues with his . He claims that his has been being negative towards him. He states that he overdosed in the living room when she was not there and came to the hospital afterwards. He states that he hasn't talked to her since coming in. He claims that "the meds stopped working" and claimed that he has been off them for several weeks now. He states that his sleep has been poor. Patient was admitted voluntarily to the mental health unit last night. Patient was seen today again for psychiatric evaluation and claims that he still feeling depressed and suicidal however does not endorse a specific plan. He spoke about not wanting to live anymore and also having to put his dog down a couple weeks ago which has made him very sad and and he was crying when he was speaking about this. He also believes that he is feeling hopeless and worthless continues to endorse problems with his . He has not spoken to her since he came up on the unit. He claims that he has been having poor sleep and poor appetite. He is willing to try medications. Patient denies any current homicidal ideations intent or plan. At this time patient denies any auditory or visual hallucinations. Patient denies any flight of ideas racing thoughts and increased in goal directed behavior. Patient admits to using edibles approximately once every other month. He admits to cigarette use. He states that if he were to go home "the same thing would happen" referring to suicide attempt." Hospital course: Upon admission to the unit patient was directable and agreeable to commence treatment and signed adult voluntary form. Patient got along well with other patients on the unit and followed unit protocol. Patient was compliant with the medications and denied any side effects throughout hospital course. Patient was started on Cymbalta and titrate up the dose of 60 mg daily for mood/anxiety/pain, Seroquel titrated up to dose of 150 mg daily at bedtime for mood adjunct/appetite/insomnia. Patient spoke of his stressors and engaged in therapy both group and individual. Patient was also seen by medical team for history and physical exam. Throughout the course of the hospitalization patient gradually improved with regards to mood, anxiety, sleep and became more future oriented with improved insight and judgment. On the day of discharge patient denied any suicidal or homicidal ideations intent or plan denied any auditory or visual hallucinations. Patient endorsed wanting to live for his and his future. Patient denied making any suicidal threats or statements to his over the phone while he was admitted to the unit. The patient denied any access to guns or weapons. Patient denied any paranoia and did not endorse any delusions. Patient does not have a significant history of substance abuse however was counseled on abstaining from all substances including alcohol and marijuana. Patient was also counseled on the medications and need for regular compliance and was encouraged to follow-up with their outpatient appointment for mental health and also for primary care. Prior to discharge a family meeting will be arranged by licensed social worker to answer any questions and ensure safety upon discharge. SW to ensure that has the home environment safe including getting rid of guns/weapons in preparation for discharge today. Mental status exam: General Appearance: Patient appears to be stated age is alert, pleasant, and cooperative. Patient is in no acute distress and has improved hygiene and grooming Behavior: Patient is calmly seated without any agitated behavior. Speech: Patient's speech is fluent and nonpressured. Mood/Affect: Patient reports their mood is "better", affect is congruent and euthymic. Suicidality/Homicidality: Patient denies having any suicidal or homicidal ideation intent or plan. Perceptions: Patient denies any auditory or visual hallucinations. Though content/process: There is no evidence of any delusional thought content and thought process is linear and goal-directed. more future oriented Memory and concentration: AOX3, grossly intact for the purposes of this session. Can spell "WORLD" backwards correctly. Judgment and insight: improved with guarded prognosis Impression: Major depressive disorder, recurrent, severe Generalized anxiety disorder Nicotine dependence Plan: -Continue with discharge today as patient has improved and stabilized psychiatrically and is not currently an imminent threat to himself and/or others. -Continue medications: Cymbalta 60 mg daily for mood/anxiety, Seroquel 150 mg daily at bedtime for mood adjunct/appetite/insomnia. -Patient was counseled on the need for medication compliance and appropriate follow-up at mental health and also primary care for medical issues. Patient verbalized understanding and agreed. -Social work to arrange for and conduct family meeting to ensure safety upon di scharge and answer any questions/concerns. Social work also to arrange for patients follow up appointments for psychiatric care along with follow up with primary care provider. -Patient counseled on abstaining from recreational drugs and marijuana and alcohol. Was informed/educated on the adverse effects on their physical and mental health. Patient verbally agreed and understood. -Patient was instructed to return to the hospital or seek immediate medical care if their psychiatric or medical symptoms do worsen or reoccur. Allergies Allergy/AdvReac Type Severity Reaction Status Date / Time atorvastatin [From Lipitor] AdvReac JOINT PAIN Verified 10/29/21 19:50 codeine AdvReac Nausea & Verified 10/29/21 19:50 Vomiting Patient Condition at Discharge: Stable Plan - Discharge Summary Discharge Rx Participant: No New Discharge Prescriptions: New DULoxetine HCL [Cymbalta] 60 mg PO DAILY 30 Days QUEtiapine [SEROquel] 150 mg PO DAILY 30 Days tablet Continue Spironolactone [Aldactone] 25 mg PO DAILY 14 Days #90 tab Omeprazole [PriLOSEC] 20 mg PO DAILY 14 Days cap Metoprolol Succinate [Toprol XL] 25 mg PO DAILY 14 Days tab lisinopriL [Zestril] 2.5 mg PO DAILY 14 Days #90 tab Albuterol Sulfate [Ventolin HFA] 1 - 2 puff INHALATION RT-Q6H PRN PRN Reason: Shortness Of Breath Clopidogrel [Plavix] 75 mg PO DAILY Nicotine 14Mg/24Hr Patch [Habitrol] 1 patch TRANSDERM DAILY PRN 14 Days patch PRN Reason: Nicotine Cravings SUMAtriptan succinate [Imitrex] 50 mg PO DAILY PRN 14 Days tab PRN Reason: Migraine Headache Discontinued busPIRone HCl [Buspar] 15 mg PO BID 14 Days tab buPROPion HCL [Wellbutrin XL] 300 mg PO DAILY 14 Days tab Melatonin 6 mg PO HS PRN PRN Reason: sleep Ondansetron [Zofran] 4 mg PO Q6H PRN PRN Reason: Nausea Discharge Medication List Albuterol Sulfate [Ventolin HFA] 1 - 2 puff INHALATION RT-Q6H PRN 10/14/20 [History] Metoprolol Succinate [Toprol XL] 25 mg PO DAILY 14 Days tab 08/30/21 [Rx] Omeprazole [PriLOSEC] 20 mg PO DAILY 14 Days cap 08/30/21 [Rx] Spironolactone [Aldactone] 25 mg PO DAILY 14 Days #90 tab 08/30/21 [Rx] lisinopriL [Zestril] 2.5 mg PO DAILY 14 Days #90 tab 08/30/21 [Rx] Clopidogrel [Plavix] 75 mg PO DAILY 10/28/21 [History] DULoxetine HCL [Cymbalta] 60 mg PO DAILY 30 Days 11/01/21 [Rx] Nicotine 14Mg/24Hr Patch [Habitrol] 1 patch TRANSDERM DAILY PRN 14 Days patch 11/01/21 [Rx] QUEtiapine [SEROquel] 150 mg PO DAILY 30 Days tablet 11/01/21 [Rx] SUMAtriptan succinate [Imitrex] 50 mg PO DAILY PRN 14 Days tab 11/01/21 [Rx] Follow up Appointment(s)/Referral(s): [facility] [Outside] - 11/07/21 1:30 pm (with intake ) Activity/Diet/Wound Care/Special Instructions: Activity and diet as tolerated. Avoid the use of street drugs and alcohol. Take all medications as prescribed. When you are in need of refills on your medications please contact your medical provider and/or outpatient psychiatrist to have this done. Please go to scheduled outpatient appointment for aftercare treatment. If symptoms return or become worse, call the crisis line at and/or go to the nearest emergency room for evaluation Discharge Disposition: HOME SELF-CARE
== END 2021-11-01 11:58 | disposition home or self-care (01) | DRG 885 ==
LOC: 3MHU 18:58
PROVIDERS: ADMIT Psychiatry & Neurology Psychiatry; ATTEND Psychiatry & Neurology Psychiatry
DX: F33.2 Major depressive disorder, recurrent severe without psychotic features (principal); E03.8 Other specified hypothyroidism; F17.210 Nicotine dependence, cigarettes, uncomplicated; F41.1 Generalized anxiety disorder; G47.00 Insomnia, unspecified; I10 Essential (primary) hypertension; I25.10 Atherosclerotic heart disease of native coronary artery without angina pectoris; I25.2 Old myocardial infarction; T50.902A Poisoning by unspecified drugs, medicaments and biological substances, intentional self-harm, initial encounter; Z63.0 Problems in relationship with spouse or partner; Z79.02 Long term (current) use of antithrombotics/antiplatelets; Z79.899 Other long term (current) drug therapy; Z81.8 Family history of other mental and behavioral disorders; Z82.5 Family history of asthma and other chronic lower respiratory diseases; Z83.3 Family history of diabetes mellitus; Z86.16 Personal history of COVID-19; Z95.5 Presence of coronary angioplasty implant and graft; Z98.890 Other specified postprocedural states; Z28.311 Partially vaccinated for COVID-19; Z88.5 Allergy status to narcotic agent; Z91.09 Other allergy status, other than to drugs and biological substances; Z71.51 Drug abuse counseling and surveillance of drug abuser; Z88.8 Allergy status to other drugs, medicaments and biological substances
CPT/HCPCS: 80061; 83036; 84439; 84443

== ENCOUNTER → 2021-11-23 | Outpatient (CLI) | payer OTHER ==
[2021-11-24 00:31] LABS: Blood Urea Nitrogen 13.2 mg/dL (9.0-27.0); Chol/HDL Ratio 4.36 Ratio; Glucose 112 mg/dL (70-110); VLDL Calculation 14.32 mg/dL (5.00-40.00)
== END | disposition home or self-care (01) ==
LOC: LABWHC1 09:23
PROVIDERS: ATTEND Psychiatry & Neurology Psychiatry
DX: F32.89 Other specified depressive episodes (principal); Z79.899 Other long term (current) drug therapy
CPT/HCPCS: 36415; 80061; 80178; 82565; 82947; 83036; 84443; 84520

== ENCOUNTER 2023-05-25 10:47 | Inpatient (IN) | payer OTHER ==
--- NOTE | 2023-05-25 10:50 | ED ---
General Adult HPI - General Source: patient, family, RN notes reviewed Mode of arrival: ambulatory Limitations: no limitations <Parish Sin - Last Filed: 05/25/23 10:48> <Michael Hua - Last Filed: 05/25/23 14:39> - General Stated complaint: CHEST PAIN NAUSEA HEARTBURN Time Seen by Provider: 05/25/23 10:48 - History of Present Illness Initial comments: 52-year-old male presents emergency Department with for evaluation of chest discomfort, heartburn Patient states that symptoms started yesterday patient's been having increased congestion, chest pain, sweating chills. Patient head COVID-19 2 weeks ago. Patient has a history of CAD (Parish Sin) This is a 52-year-old male who presents emergency department with past medical history significant for an IA with a stent. Patient also has history of SVT diabetes hypertension and high cholesterol. Patient also states he has a very strong family history of heart disease and he continues to smoke. Patient states he started having chest pain yesterday and continued until today. Patient states that times yesterday at almost 1 away but never quite went away. Patient states it radiates a little bit to his back is also short of breath became very lightheaded and nauseous. Patient states now his chest pain is always completely gone and he feels considerably better. Patient denies any abdominal pain. Patient denies any fever chills or cough per patient denies headache patient denies any numbness or focal weakness patient denies any leg swelling or calf tenderness (Michael Hua) - Related Data Home Medications Medication Instructions Recorded Confirmed Albuterol Sulfate [Ventolin HFA] 1 - 2 puff INHALATION RT-Q6H PRN 10/14/20 10/29/21 Clopidogrel [Plavix] 75 mg PO DAILY 10/28/21 10/29/21 Previous Rx's Medication Instructions Recorded Metoprolol Succinate [Toprol XL] 25 mg PO DAILY 14 Days tab 08/30/21 Omeprazole [PriLOSEC] 20 mg PO DAILY 14 Days cap 08/30/21 Spironolactone [Aldactone] 25 mg PO DAILY 14 Days #90 tab 08/30/21 lisinopriL [Zestril] 2.5 mg PO DAILY 14 Days #90 tab 08/30/21 DULoxetine HCL [Cymbalta] 60 mg PO DAILY 30 Days 11/01/21 Nicotine 14Mg/24Hr Patch [Habitrol] 1 patch TRANSDERM DAILY PRN 14 11/01/21 Days patch QUEtiapine [SEROquel] 150 mg PO DAILY 30 Days tablet 11/01/21 SUMAtriptan succinate [Imitrex] 50 mg PO DAILY PRN 14 Days tab 11/01/21 Allergies Allergy/AdvReac Type Severity Reaction Status Date / Time atorvastatin [From Lipitor] AdvReac JOINT PAIN Verified 05/25/23 10:55 codeine AdvReac Nausea & Verified 05/25/23 10:55 Vomiting Review of Systems ROS Other: All systems not noted in ROS Statement are negative. <Parish Sin - Last Filed: 05/25/23 10:48> ROS Other: All systems not noted in ROS Statement are negative. <Michael Hua - Last Filed: 05/25/23 14:39> ROS Statement: Those systems with pertinent positive or pertinent negative responses have been documented in the HPI. Past Medical History Past Medical History: Coronary Artery Disease (CAD), Hypertension, Myocardial Infarction (IA), Supraventricular Tachycardia (SVT) Additional Past Medical History / Comment(s): Past difficulty urinating/UTIs and had bladder neck surgery, covid 09/2020. Last Myocardial Infarction Date:: 09/2020 History of Any Multi-Drug Resistant Organisms: None Reported Past Surgical History: Heart Catheterization With Stent Additional Past Surgical History / Comment(s): EP study-unable to ablate, bladder neck surgery. Past Anesthesia/Blood Transfusion Reactions: No Reported Reaction Date of Last Stent Placement:: 10/14/20 Past Psychological History: Depression Additional Psychological History / Comment(s): Pt resides with his spouse/children. He is independent. He is suicidal. Smoking Status: Current every day smoker Past Alcohol Use History: None Reported Additional Past Alcohol Use History / Comment(s): Pt started smoking in 1988 and is a half ppd smoker. Past Drug Use History: None Reported - Past Family History Father Family Medical History: COPD, Diabetes Mellitus, Eye Disorder Additional Family Medical History / Comment(s): Heart problems, vision problems, polio Mother Additional Family Medical History / Comment(s): Heart problems. <Parish Sin - Last Filed: 05/25/23 10:48> General Exam <Parish Sin - Last Filed: 05/25/23 10:48> <Michael Hua - Last Filed: 05/25/23 14:39> - General Exam Comments Initial Comments: Visual Physical Exam Vital signs reviewed General: Well-appearing, nontoxic, no acute distress. Head: Normocephalic, atraumatic Eyes: PERRLA, EOMI ENT: Airway patent Chest: Nonlabored breathing Skin: No visual rash, normal skin tone Neuro: Alert and oriented 3 Musculoskeletal: No gross abnormalities (Parish Sin) GENERAL: Patient is well-developed and well-nourished. Patient is nontoxic and well- hydrated and is in no acute distress. ENT: Neck is soft and supple. No significant lymphadenopathy is noted. Oropharynx is clear. Moist mucous membranes. Neck has full range of motion without eliciting any pain. EYES: The sclera were anicteric and conjunctiva were pink and moist. Extraocular movements were intact and pupils were equal round and reactive to light. Eyelids were unremarkable. PULMONARY: Unlabored respirations. Good breath sounds bilaterally. No audible rales rhonchi or wheezing was noted. CARDIOVASCULAR: There is a regular rate and rhythm without any murmurs gallops or rubs. ABDOMEN: Soft and nontender with normal bowel sounds. SKIN: Skin is clear with no lesions or rashes and otherwise unremarkable. NEUROLOGIC: Patient is alert and oriented x3. Cranial nerves II through XII are grossly intact. Motor and sensory are also intact. Normal speech, volume and content. Symmetrical smile. MUSCULOSKELETAL: Normal extremities with adequate strength and full range of motion. LYMPHATICS: No significant lymphadenopathy is noted PSYCHIATRIC: Normal psychiatric evaluation. (Michael Hua) Course Vital Signs 05/25/23 05/25/23 10:55 14:12 Temperature 98.1 F 98.3 F Pulse Rate 72 68 Respiratory 16 16 Rate Blood Pressure 129/86 113/87 O2 Sat by Pulse 100 97 Oximetry Medical Decision Making <Parish Sin - Last Filed: 05/25/23 10:48> - Lab Data Result diagrams: 05/25/23 11:24 05/25/23 11:24 <Michael Hua - Last Filed: 05/25/23 14:39> - Medical Decision Making I completed the quick note portion of this chart signed Parish Sin PA-C (Ani caraballo,Parish Brown) EKG is interpreted by myself. EKG shows a sinus rhythm at 73 bpm [place] interval 286 QRS is 75 QT interval is 361 QTC is 387. Patient's EKG shows no ST segment elevation. Was pt. sent in by a medical professional or institution (, KEE, REVIVAL CLERK, urgent care, hospital, or [place] health [place] facility...) When possible be specific @ -No Did you speak to anyone other than the patient for history (EMS, parent, family, police, friend...)? What history was obtained from this source @ -No Did you review nursing and triage notes (agree or disagree)? Why? @ -I reviewed and agree with nursing and triage notes Were old charts reviewed (outside hosp., previous admission, EMS record, old EKG, old radiological studies, urgent care reports/EKG's, [place] health [place] facility records)? Report findings @ -I reviewed prior charts prior labwork on this patient Differential Diagnosis (chest pain, altered mental status, abdominal pain women, abdominal pain men, vaginal bleeding, weakness, fever, dyspnea, syncope, headache, dizziness, GI bleed, back pain, seizure, CVA, palpatations, mental health, musculoskeletal)? @ -Differential Chest Pain: Stable Angina, Unstable Angina, STEMI, NSTEMI Aortic Dissection, Pneumothorax, Musculoskeletal, Esophageal Spasm GERD, Cholecystitis, Pancreatitis, Zoster, this is not meant to be an all-inclusive list. EKG interpreted by me (3pts min.). @ -As above X-rays interpreted by me (1pt min.). @ -Chest x-ray shows no acute abnormality CT interpreted by me (1pt min.). @ -None done U/S interpreted by me (1pt. min.). @ -None done What testing was considered but not performed or refused? (CT, X-rays, U/S, labs)? Why? @ -None What meds were considered but not given or refused? Why? @ -None Did you discuss the management of the patient with other professionals (professionals i.e. , KEE, REVIVAL CLERK, lab, RT, psych nurse, long term care social worker, environmental designer, teacher, fire control officer, director case management)? Give summary @ -I spoke with Dr. Velasco and he agreed to admit the patient Was smoking cessation discussed for >3mins.? @ -Yes Was critical care preformed (if so, how long)? @ -No Were there social determinants of health that impacted care today? How? (Homelessness, low income, unemployed, alcoholism, drug addiction, trans portation, low edu. Level, literacy, decrease access to med. care, [facility], rehab)? @ -No Was there de-escalation of care discussed even if they declined (Discuss DNR or withdrawal of care, Hospice)? DNR status @ -No What co-morbidities impacted this encounter? (DM, HTN, Smoking, COPD, CAD, Cancer, CVA, ARF, Chemo, Hep., AIDS, mental health diagnosis, sleep apnea, morbid obesity)? @ -None Was patient admitted / discharged? Hospital course, mention meds given and route, prescriptions, significant lab abnormalities, going to OR and other pertinent info. @ -I will back into the room and spoke with the patient and discussed admission he was in agreement. I spoke with Dr. Gillis and he agreed to admit the patient I wrote admitting orders I consulted cardiology patient is currently chest pain- free Undiagnosed new problem with uncertain prognosis? @ -No Drug Therapy requiring intensive monitoring for toxicity (Heparin, Nitro, Insulin, Cardizem)? @ -No Were any procedures done? @ -No Diagnosis/symptom? @ -Chest pain Acute, or Chronic, or Acute on Chronic? @ -Acute Uncomplicated (without systemic symptoms) or Complicated (systemic symptoms)? @ -Complicated Side effects of treatment? @ -No Exacerbation, Progression, or Severe Exacerbation? @ -No Poses a threat to life or bodily function? How? (Chest pain, USA, IA, pneumonia, PE, COPD, DKA, ARF, appy, cholecystitis, CVA, Diverticulitis, Homicidal, Suicidal, threat to staff... and all critical care pts) @ -Yes this can lead to poor perfusion and end organ dysfunction (Michael Hua) - Lab Data Lab Results 05/25/23 05/25/23 05/25/23 Range/Units 11:24 11:24 11:24 WBC 15.7 H (3.8-10.6) k/uL RBC 5.63 (4.30-5.90) m/uL Hgb 17.5 (13.0-17.5) gm/dL Hct 51.6 (39.0-53.0) % MCV 91.6 (80.0-100.0) fL MCH 31.0 (25.0-35.0) pg MCHC 33.8 (31.0-37.0) g/dL RDW 13.5 (11.5-15.5) % Plt Count 231 (150-450) k/uL MPV 9.2 Neutrophils % 69 % Lymphocytes % 20 % Monocytes % 5 % Eosinophils % 3 % Basophils % 1 % Neutrophils # 10.8 H (1.3-7.7) k/uL Lymphocytes # 3.2 (1.0-4.8) k/uL Monocytes # 0.8 (0-1.0) k/uL Eosinophils # 0.5 (0-0.7) k/uL Basophils # 0.1 (0-0.2) k/uL PT 10.9 (10.0-12.5) sec INR 1.0 (<1.2) APTT 28.3 (22.0-30.0) sec Sodium 138 (137-145) mmol/L Potassium 4.3 (3.5-5.1) mmol/L Chloride 104 (98-107) mmol/L Carbon Dioxide 22 (22-30) mmol/L Anion Gap 12 mmol/L BUN 14 (9-20) mg/dL Creatinine 0.86 (0.66-1.25) mg/dL Est GFR (CKD-EPI)AfAm >90 (>60 ml/min/1.73 sqM) Est GFR (CKD-EPI)NonAf >90 (>60 ml/min/1.73 sqM) Glucose 102 H (74-99) mg/dL Calcium 9.5 (8.4-10.2) mg/dL Magnesium 1.8 (1.6-2.3) mg/dL Total Bilirubin 1.1 (0.2-1.3) mg/dL AST 30 (17-59) U/L ALT 39 (4-49) U/L Alkaline Phosphatase 90 (38-126) U/L Troponin I (0.000-0.034) ng/mL Total Protein 7.1 (6.3-8.2) g/dL Albumin 4.2 (3.5-5.0) g/dL Lipase 56 (23-300) U/L 11/27/23 Range/Units 11:24 WBC (3.8-10.6) k/uL RBC (4.30-5.90) m/uL Hgb (13.0-17.5) gm/dL Hct (39.0-53.0) % MCV (80.0-100.0) fL MCH (25.0-35.0) pg MCHC (31.0-37.0) g/dL RDW (11.5-15.5) % Plt Count (150-450) k/uL MPV Neutrophils % % Lymphocytes % % Monocytes % % Eosinophils % % Basophils % % Neutrophils # (1.3-7.7) k/uL Lymphocytes # (1.0-4.8) k/uL Monocytes # (0-1.0) k/uL Eosinophils # (0-0.7) k/uL Basophils # (0-0.2) k/uL PT (10.0-12.5) sec INR (<1.2) APTT (22.0-30.0) sec Sodium (137-145) mmol/L Potassium (3.5-5.1) mmol/L Chloride (98-107) mmol/L Carbon Dioxide (22-30) mmol/L Anion Gap mmol/L BUN (9-20) mg/dL Creatinine (0.66-1.25) mg/dL Est GFR (CKD-EPI)AfAm (>60 ml/min/1.73 sqM) Est GFR (CKD-EPI)NonAf (>60 ml/min/1.73 sqM) Glucose (74-99) mg/dL Calcium (8.4-10.2) mg/dL Magnesium (1.6-2.3) mg/dL Total Bilirubin (0.2-1.3) mg/dL AST (17-59) U/L ALT (4-49) U/L Alkaline Phosphatase (38-126) U/L Troponin I <0.012 (0.000-0.034) ng/mL Total Protein (6.3-8.2) g/dL Albumin (3.5-5.0) g/dL Lipase (23-300) U/L Disposition <Parish Sin - Last Filed: 05/25/23 10:48> Time of Disposition: 14:39 <Michael Hua - Last Filed: 05/25/23 14:39> Clinical Impression: Chest pain Disposition: ADMITTED IP TO THIS HOSP Referrals: None,Stated [Primary Care Provider] - 1-2 days
--- NOTE | 2023-05-25 11:38 | XR ---
EXAMINATION TYPE: XR chest 2V DATE OF EXAM: 05/25/2023 COMPARISON: Prior chest x-ray January 11, 2020 HISTORY: Chest pain TECHNIQUE: Frontal and lateral views of the chest are obtained. FINDINGS: There is some chronic linear parenchymal changes bilaterally redemonstrated without suspic ious new focal air space opacity, pleural effusion, or pneumothorax seen. The cardiac silhouette siz e is stable and within normal limits. The osseous structures are intact. IMPRESSION: Chronic changes without acute pulmonary process.
[2023-05-25 11:42] LABS: Basophils # (A) 0.1 k/uL (0-0.2); Basophils % (A) 1 %; Eosinophils # (A) 0.5 k/uL (0-0.7); Eosinophils % (A) 3 %; HCT 51.6 % (39.0-53.0); HGB 17.5 gm/dL (13.0-17.5); Lymphocytes # (A) 3.2 k/uL (1.0-4.8); Lymphocytes % (A) 20 %; MCHC 33.8 g/dL (31.0-37.0); MCV 91.6 fL (80.0-100.0); Mean Platelet Volume 9.2; Monocytes # (A) 0.8 k/uL (0-1.0); Monocytes % (A) 5 %; Neutrophils # (A) 10.8 k/uL (1.3-7.7); Neutrophils % (A) 69 %; Platelet Count 231 k/uL (150-450); RBC 5.63 m/uL (4.30-5.90); RDW 13.5 % (11.5-15.5); WBC 15.7 k/uL (3.8-10.6)
[2023-05-25 11:51] LABS: ALT 39 U/L (4-49); AST 30 U/L (17-59); African American GFR (CKD) >90 (>60 ml/min/1.73 sqM); Albumin 4.2 g/dL (3.5-5.0); Alkaline Phosphatase 90 U/L (38-126); Anion Gap 12 mmol/L; Blood Urea Nitrogen 14 mg/dL (9-20); Calcium 9.5 mg/dL (8.4-10.2); Carbon Dioxide 22 mmol/L (22-30); Chloride 104 mmol/L (98-107); Glucose 102 mg/dL (74-99); Lipase 56 U/L (23-300); Magnesium 1.8 mg/dL (1.6-2.3); Non-African American GFR(CKD) >90 (>60 ml/min/1.73 sqM); Potassium 4.3 mmol/L (3.5-5.1); Sodium 138 mmol/L (137-145); Total Bilirubin 1.1 mg/dL (0.2-1.3); Total Protein 7.1 g/dL (6.3-8.2)
[2023-05-25 12:03] LABS: Partial Thromboplastin Time 28.3 sec (22.0-30.0); Prothrombin Time 10.9 sec (10.0-12.5)
[2023-05-25] MEDS: NITROGLYCERIN OINT 1 INCH/GM PACKET TOPICAL SCH (18:13)
[2023-05-25] MEDS ORDERED: HEPARIN SODIUM 1,000 UN/ML (10ML VL) IV ONE (19:48)
[2023-05-25] MEDS ORDERED: HEPARIN SODIUM 1,000 UN/ML (10ML VL) IV PRN (19:48)
[2023-05-25] MEDS: HEPARIN SOD,PORK IN 0.45% NACL 25,000 UNIT in 0.45% NACL 1 250ML.BAG IV SCH (20:54)
[2023-05-26] MEDS: NITROGLYCERIN OINT 1 INCH/GM PACKET TOPICAL SCH ×5 (01:05→23:36)
--- NOTE | 2023-05-26 04:11 | HP ---
HISTORY AND PHYSICAL CHIEF COMPLAINT: Chest pain. HISTORY OF PRESENT ILLNESS: This is another admission for this 52-year-old gentleman, who presented to the emergency room with chest pain. Enzymes and EKG were normal. His 2nd set of enzymes, troponin was elevated. REVIEW OF SYSTEMS: He has had no cough, hemoptysis, fever, chills, abdominal pain, etc. Past medical history, family history, and personal and social histories demonstrate that he has had a prior myocardial infarction. He also has type 2 diabetes. MEDICATIONS: Include, 1. Atorvastatin. 2. Symbicort. 3. Ubrelvy. 4. Gabapentin. 5. Metformin. 6. Aspirin. 7. Metoprolol. 8. Pantoprazole. SOCIAL HISTORY: He does continue to smoke. PHYSICAL EXAMINATION: VITAL SIGNS: Blood pressure 136/81 with a pulse of 78, respirations of 30. He is afebrile. GENERAL: He appeared to be in no acute distress. SKIN: Skin color is normal. LYMPHATICS: Lymph nodes are not enlarged. HEAD, EARS, EYES, NOSE, MOUTH AND THROAT: Normal. NECK: Neck veins not distended. CHEST: Clear. CARDIAC: Demonstrated sinus rhythm and there are no murmurs or extra sounds. ABDOMEN: Soft, nontender. EXTREMITIES: Normal. NEUROLOGIC: Intact. IMPRESSION: He is admitted to the hospital with diagnosis of: 1. Chest pain. 2. Acute coronary syndrome. 3. Rule out myocardial infarction. PLAN: 1. Bedrest. 2. IV fluids. 3. Serial EKG and enzymes. 4. Cardiology consult. MMYGL / PHOEBEN: [id number] /
[2023-05-26 08:35] LABS: Chol/HDL Ratio 3.72 Ratio; LDL Cholesterol,Calculated 91.1 mg/dL (0.0-131.0); VLDL Calculation 14.24 mg/dL (5.00-40.00)
[2023-05-26] MEDS ORDERED: ASPIRIN 325 MG TAB PO SCH (09:00)
[2023-05-26] MEDS ORDERED: NITROGLYCERIN SL TABS 0.4 MG TAB SUBLINGUAL PRN (09:35)
[2023-05-26] MEDS ORDERED: ALPRAZolam 0.25 MG TAB PO PRN (09:35)
[2023-05-26] MEDS ORDERED: METOPROLOL TARTRATE 25 MG TAB PO SCH (09:45)
[2023-05-26] MEDS ORDERED: ATORVASTATIN 40 MG TAB PO SCH (09:45)
[2023-05-26] MEDS ORDERED: GABAPENTIN 100 MG CAP PO PRN (10:28)
[2023-05-26] MEDS: ASPIRIN 81 MG PO SCH (11:38)
[2023-05-26] MEDS: GLIMEPIRIDE 1 MG TAB PO SCH (11:47)
[2023-05-26] MEDS: HEPARIN SOD,PORK IN 0.45% NACL 25,000 UNIT in 0.45% NACL 1 250ML.BAG IV SCH (15:55)
[2023-05-26] MEDS ORDERED: BUTALB/APAP/CAFF 50-325-40MG TAB PO PRN ×2 (17:26)
[2023-05-26] MEDS ORDERED: DIPHENOX-ATROP 2.5-0.025 MG 1 EACH TAB PO PRN (17:31)
[2023-05-26] MEDS ORDERED: DIPHENOX-ATROP 2.5-0.025 MG 1 EACH TAB PO SCH (18:00)
--- NOTE | 2023-05-26 18:05 | P.CRDCN ---
History of Present Illness Consult date: 05/26/23 History of present illness: HISTORY OF PRESENTING ILLNESS 52-year-old male with past medical history of CAD status post PCI in September [address] Loredo. He also has a history of SVT, diabetes, hypertension and dyslipidemia. Presented to the hospital because of worsening chest heaviness and nausea for last 1-2 weeks. The symptoms have increased in intensity and frequency over last 1 week. Patient reported that he is compliant to his medications and he is currently on aspirin and Plavix. On admission his EKG showed sinus rhythm with no significant ST-T wave changes that are diagnostic for ischemia. He did had elevation of troponin enzymes. Which peaked at 0.24. Hemoglobin 17.5, WBC 15, creatinine 0.8 REVIEW OF SYSTEMS 14 point review of system is negative except what is mentioned above in HPI. PHYSICAL EXAMINATION Vital signs reviewed. Head: Normocephalic. Eyes: Sclerae nonicteric. Neck: Brisk carotid upstroke, no jugular venous distention. Lungs: Clear to auscultation. Heart: Regular rate and rhythm, S1-S2, no S3, no murmur or rub. Abdomen: Soft nontender, positive bowel sounds no organomegaly. Extremities: No edema, intact distal pulses. Neuro: Alert, oritented, no focal deficits ASSESSMENT NSTEMI Essential hypertension Type II Diabetes Dyslipidemia Questionable history of SVT Smoker 1 pack per day PLAN Plan for cardiac catheterization by Dr. Loredo tomorrow Continue aspirin, atorvastatin, metoprolol Continue IV heparin drip Obtain echocardiogram Smoking cessation Past Medical History Past Medical History: Coronary Artery Disease (CAD), Hypertension, Myocardial Infarction (OR), Supraventricular Tachycardia (SVT) Additional Past Medical History / Comment(s): Past difficulty urinating/UTIs and had bladder neck surgery, covid 09/2020. Last Myocardial Infarction Date:: 09/2020 History of Any Multi-Drug Resistant Organisms: None Reported Past Surgical History: Heart Catheterization With Stent Additional Past Surgical History / Comment(s): EP study-unable to ablate, bladder neck surgery. Past Anesthesia/Blood Transfusion Reactions: No Reported Reaction Date of Last Stent Placement:: 10/14/20 Past Psychological History: Depression Additional Psychological History / Comment(s): Pt resides with his spouse/children. He is independent. Smoking Status: Current every day smoker Past Alcohol Use History: None Reported Additional Past Alcohol Use History / Comment(s): Pt started smoking in 1988 and is a half ppd smoker. Past Drug Use History: None Reported - Past Family History Father Family Medical History: COPD, Diabetes Mellitus, Eye Disorder Additional Family Medical History / Comment(s): Heart problems, vision problems, polio Mother Additional Family Medical History / Comment(s): Heart problems. Medications and Allergies Home Medications Medication Instructions Recorded Confirmed Type Aspirin EC [Ecotrin Low Dose] 81 mg PO DAILY 05/25/23 05/25/23 History Atorvastatin [Lipitor] 20 mg PO DAILY 05/25/23 05/25/23 History Ergocalciferol (Vitamin D2) 1,250 mcg PO Q14D 05/25/23 05/25/23 History [Drisdol (50,000 Iu)] Gabapentin [Neurontin] 100 mg PO TID PRN 05/25/23 05/25/23 History Glimepiride [Amaryl] 1 mg PO DIRECTED 05/25/23 05/25/23 History Metoprolol Succinate [Toprol XL] 25 mg PO HS 05/25/23 05/25/23 History Pantoprazole [Protonix] 40 mg PO DAILY 05/25/23 05/25/23 History metFORMIN HCL ER [Glucophage XR] 500 mg PO HS 05/25/23 05/25/23 History traZODone HCL 100 mg PO HS 05/25/23 05/25/23 History Allergies Allergy/AdvReac Type Severity Reaction Status Date / Time atorvastatin [From Lipitor] AdvReac JOINT PAIN Verified 05/25/23 14:44 codeine AdvReac Nausea & Verified 05/25/23 14:44 Vomiting Physical Exam Vitals: Vital Signs Temp Pulse Pulse Resp BP BP Pulse Ox 05/26/23 16:00 97.8 F 62 18 144/80 99 05/26/23 14:00 18 05/26/23 13:02 65 18 119/77 98 05/26/23 10:59 60 18 136/94 96 05/26/23 09:53 71 18 136/94 98 05/26/23 09:00 60 18 126/92 0 L 05/26/23 08:00 68 18 125/88 96 05/26/23 07:09 96.2 F L 70 18 126/92 96 05/26/23 04:00 76 15 123/76 95 05/25/23 21:00 58 L 16 112/71 98 Intake and Output 05/26/23 05/26/23 05/26/23 06:59 14:59 22:59 Intake Total 73.5 89.7 72.997 Balance 73.5 89.7 72.997 Intake: Intake, IV Titration 73.5 89.7 72.997 Amount Heparin Sod,Pork in 0.45% 73.5 89.7 72.997 NaCl 25,000 unit In 0.45 % NaCl 1 250ml.bag @ 8. 646 UNITS/KG/HR 10 mls/hr IV .Q24H [facility] Rx#: [id number] Results 05/25/23 11:24 05/25/23 11:24 Cardiac Enzymes 05/25/23 05/25/23 Range/Units 17:30 20:04 Troponin I 0.114 H* 0.246 H* (0.000-0.034) ng/mL Coagulation 05/26/23 05/26/23 05/26/23 Range/Units 02:29 09:16 17:07 APTT 34.1 H 40.4 H 50.1 H (22.0-30.0) sec Lipids 05/26/23 Range/Units 02:29 Triglycerides 71.20 (0.00-149.00) mg/dL Cholesterol 144.00 (0.00-200.00) mg/dL HDL Cholesterol 38.70 L (40.00-60.00) mg/dL Cholesterol/HDL Ratio 3.72 Ratio Current Medications Generic Name Dose Route Start Last Admin Trade Name Shmuelq PRN Reason Stop Dose Admin Acetaminophen/Butalbital/Caffeine 1 each 05/26/23 17:26 05/26/23 17:36 Butalb/Apap/Caff 50-325-40mg Tab PO 1 each Q4HR PRN Administration MILD TO MODERATE Headache Acetaminophen/Butalbital/Caffeine 2 each 05/26/23 17:26 Butalb/Apap/Caff 50-325-40mg Tab PO Q4HR PRN SEVERE Headache Alprazolam 0.25 mg 05/26/23 09:35 Alprazolam 0.25 Mg Tab PO Q6HR PRN Mild Anxiety Aspirin 81 mg 05/26/23 09:45 05/26/23 11:38 Aspirin 81 Mg PO 81 mg DAILY NAOMI Administration Atorvastatin Calcium 80 mg 05/26/23 21:00 Atorvastatin 80 Mg Tab PO HS [facility] Diphenoxylate HCl/Atropine 1 each 05/26/23 17:31 Diphenox-Atrop 2.5-0.025 Mg 1 Each Tab PO QID PRN Diarrhea Gabapentin 100 mg 05/26/23 10:28 Gabapentin 100 Mg Cap PO TID PRN Pain Glimepiride 1 mg 05/26/23 10:30 05/26/23 11:47 Glimepiride 1 Mg Tab PO 1 mg [id number] NAOMI Administration Heparin Sodium (Porcine) 0 unit 05/25/23 19:48 05/26/23 11:36 Heparin Sodium 1,000 Un/Ml (10ml Vl) IV 2,875 unit PER PROTOCOL PRN Administration Low PTT Protocol Heparin Sodium/Sodium Chloride 250 mls @ 10 mls/hr 05/25/23 20:00 05/26/23 15:55 25,000 unit/ Sodium Chloride IV 13.24 units/kg/hr .Q24H NAOMI 15.314 mls/hr Administration Protocol 8.646 UNITS/KG/HR Sodium Chloride 1,000 ml/ IV 1,000 mls @ 75 mls/hr 05/27/23 02:00 Solution IV .[id number] [facility] Metoprolol Succinate 100 mg 05/27/23 09:00 Metoprolol Succinate (Er) 100 Mg Tab.Er.24h PO DAILY [facility] Nitroglycerin 1 inch 05/25/23 18:00 05/26/23 11:38 Nitroglycerin Oint 1 Inch/Gm Packet TOPICAL 1 inch Q6HR NAOMI Administration Nitroglycerin 0.4 mg 05/26/23 09:35 Nitroglycerin Sl Tabs 0.4 Mg Tab SUBLINGUAL Q5M PRN Chest Pain Pantoprazole Sodium 40 mg 05/27/23 09:00 Pantoprazole 40 Mg Tablet PO DAILY [facility] Trazodone HCl 100 mg 05/26/23 21:00 Trazodone Hcl 100 Mg Tab PO HS [facility] Intake and Output 05/26/23 05/26/23 05/26/23 06:59 14:59 22:59 Intake Total 73.5 89.7 72.997 Balance 73.5 89.7 72.997 Intake: Intake, IV Titration 73.5 89.7 72.997 Amount Heparin Sod,Pork in 0.45% 73.5 89.7 72.997 NaCl 25,000 unit In 0.45 % NaCl 1 250ml.bag @ 8. 646 UNITS/KG/HR 10 mls/hr IV .Q24H [facility] Rx#: [id number] 05/25/23 11:24 05/25/23 11:24
--- NOTE | 2023-05-26 20:31 | PN ---
PROGRESS NOTE LOCATION: Emergency room in room 11. CHIEF COMPLAINT: Chest pain. HISTORY OF PRESENT ILLNESS: This gentleman is doing fairly well, and the pain has gone. However, his enzymes have been up, and he has had an NSTEMI. He is going to the lab technologist. PHYSICAL EXAMINATION: CHEST: Clear. CARDIAC: Normal. VITAL SIGNS: Normal. ABDOMEN: Soft and nontender. IMPRESSION: [id number] myocardial infarction. PLAN: Cardiac cath today. MMODL / IJN: [id number] /
[2023-05-26] MEDS: ATORVASTATIN 80 MG TAB PO SCH (20:48)
[2023-05-26] MEDS: traZODone HCL 100 MG TAB PO SCH (20:48)
[2023-05-26] MEDS ORDERED: METOPROLOL SUCCINATE (ER) 25 MG TAB.ER.24H PO SCH (21:00)
[2023-05-27] MEDS: SODIUM CHLORIDE 0.9% 1,000 ML in EMPTY BAG 1 BAG IV SCH ×2 (04:01→14:33)
[2023-05-27] MEDS: NITROGLYCERIN OINT 1 INCH/GM PACKET TOPICAL SCH ×2 (04:01→19:00)
[2023-05-27] MEDS: GLIMEPIRIDE 1 MG TAB PO SCH (05:38)
[2023-05-27 06:27] LABS: Glucose,Whole Blood 136 mg/dL (70-110)
[2023-05-27] MEDS ORDERED: NON FORMULARY DRUG (Aspirin Ec 81 MG Tablet) PO SCH (09:00)
[2023-05-27] MEDS ORDERED: METOPROLOL SUCCINATE (ER) 100 MG TAB.ER.24H PO SCH (09:00)
[2023-05-27] MEDS ORDERED: ASPIRIN 325 MG TAB PO STA (09:08)
[2023-05-27] MEDS: ASPIRIN 81 MG PO SCH (09:09)
[2023-05-27] MEDS: PANTOPRAZOLE 40 MG TABLET PO SCH (09:14)
--- NOTE | 2023-05-27 10:07 | CA ---
Transthoracic Echo Report Name: Parish Gallegos Age: 52 Gender: M : 1970 Exam Date: 05/26/2023 12:06 Exam Location: [facility] Ht (in): 71 Wt (lb): 255 Ordering Physician: Franck Yang MD ([id number]) Attending/Referring Phys: Driller Machine Ivette Valencia [facility] Procedure CPT: Indications: nstemi Cardiac Hx: Technical Quality: Technically difficult study Contrast 1: Definity Total Dose (mL): 5 Contrast 2: Total Dose (mL): MEASUREMENTS (Male / Female) Normal Values 2D ECHO LV Diastolic Diameter PLAX 4.6 cm 4.2 - 5.9 / 3.9 - 5.3 cm LV Systolic Diameter PLAX 3.0 cm IVS Diastolic Thickness 0.8 cm 0.6 - 1.0 / 0.6 - 0.9 cm LVPW Diastolic Thickness 1.0 cm 0.6 - 1.0 / 0.6 - 0.9 cm LV Relative Wall Thickness 0.4 LVOT Diameter 2.0 cm Aortic Root Diameter 4.0 cm Ascending Aorta Diameter 3.3 cm M-MODE Aortic Root Diameter MM 3.0 cm LA Systolic Diameter MM 3.5 cm LA Ao Ratio MM 1.2 AV Cusp Separation MM 2.2 cm DOPPLER AV Peak Velocity 83.4 cm/s AV Peak Gradient 2.8 mmHg AV Mean Velocity 66.2 cm/s AV Mean Gradient 1.9 mmHg AV Velocity Time Integral 17.7 cm LVOT Peak Velocity 78.4 cm/s LVOT Peak Gradient 2.5 mmHg LVOT Velocity Time Integral 13.7 cm LVOT Stroke Volume 42.4 cm??? LVOT Stroke Volume Index 18.1 ml/m??? LVOT Cardiac Index 1108.8 cm???/min???m??? AV Area Cont Eq vti 2.4 cm??? AV Area Cont Eq pk 2.9 cm??? Mitral E Point Velocity 43.4 cm/s Mitral A Point Velocity 54.7 cm/s Mitral E to A Ratio 0.8 MV Deceleration Time 236.3 ms LV E' Lateral Velocity 12.1 cm/s Mitral E to LV E' Lateral Ratio 3.6 LV E' Septal Velocity 7.2 cm/s Mitral E to LV E' Septal Ratio 6.0 TR Peak Velocity 192.0 cm/s TR Peak Gradient 14.7 mmHg Right Atrial Pressure 3.0 mmHg Pulmonary Artery Systolic Pressu 17.7 mmHg Right Ventricular Systolic Press 17.7 mmHg FINDINGS Left Ventricle Left ventricular wall thickness normal. Left ventricular cavity size normal. Left ventricular ejection fraction is estimated at 55-60%. Right Ventricle Moderate right ventricular dilatation. Right Atrium Moderate right atrial dilatation. Left Atrium Normal left atrial size. Mitral Valve Structurally normal mitral valve. Trace mitral regurgitation. Aortic Valve Trileaflet aortic valve. No aortic regurgitation. Tricuspid Valve Structurally normal tricuspid valve. Trace tricuspid regurgitation. Pulmonic Valve Structurally normal pulmonic valve. Mild pulmonic regurgitation. Pericardium Minimal pericardial effusion (normal variant). Aorta Normal size aortic root and proximal ascending aorta. CONCLUSIONS Normal LV systolic function No obvious wall motion abnormality Previewed by: Dr. Cristopher Salinas MD (Electronically Signed) Final Date: 27 May 2023 10:06
[2023-05-27 11:53] LABS: Glucose,Whole Blood 93 mg/dL (70-110)
[2023-05-27] MEDS ORDERED: SODIUM CHLORIDE 0.9% 500 ML 500 ML IV ONE (12:30)
[2023-05-27] MEDS ORDERED: fentaNYL (PF) 50 MCG/ML 2 ML AMP IVP ONE (12:39)
[2023-05-27] MEDS ORDERED: LIDOCAINE 1% INJ 10MG/ML (20 ML MDV) SQ ONE (12:41)
[2023-05-27] MEDS ORDERED: VERAPAMIL SYRINGE (5 MG/10 ML) INTRAARTER ONE (12:42)
[2023-05-27] MEDS ORDERED: MIDAZOLAM 2 MG/2 ML VIAL IVP ONE (12:42)
[2023-05-27] MEDS ORDERED: HEPARIN SODIUM 1,000 UN/ML (10ML VL) IV ONE (12:46)
[2023-05-27] MEDS ORDERED: CLOPIDOGREL 75 MG TAB PO ONE (12:58)
[2023-05-27] MEDS ORDERED: IOPAMIDOL-370 100ML BTL INJ ONE (13:18)
[2023-05-27] MEDS ORDERED: RX INFO: IV CONTRAST WAS GIVEN 1 EACH MISC MISCELLANE PRN (13:20)
--- NOTE | 2023-05-27 13:28 | P.CARDCATH ---
Date of Procedure: 05/27/23 Description of Procedure: Cardiac Catheterization: The patient is a 52-year-old male with known history of hyperlipidemia, chronic tobacco use and history of CAD who presented with anterior wall myocardial infarction in 2020 and underwent stenting of his LAD. He has not followed on a regular basis and presents this time with symptoms of dizziness, palpitations and mild chest discomfort with mild troponin elevation and no EKG changes. Recommendations were made regarding cardiac catheterization, the risks and the complications were discussed with the patient who is in full understanding and agreement. Procedure Description: Patient was brought to manufacturing lab technician in fasting semi-sedated state after receiving Fentanyl and Benadryl achieiving moderate conscious sedated state. Using Xylocaine Anesthesia and modified Seldinger technique, a 6-Tanzanian sheath was introduced in the right radial artery . Subsequently, selective coronary angiography was performed using a 5-Tanzanian 3.5 bend Pranav catheter. Multiple views of the coronary artery including hemiaxial views were obtained. The 6-Tanzanian pigtail catheter was used to cross the aortic valve and LVEDP was calculated. Following that, catheter and sheath were removed. Hemostasis was obtained with deployment of vascular band . There was no immediate complication. Patient was returned to room in stable condition. Of note, the patient received a total of 4000 units of intravenous heparin as well as intra-arterial verapamil. Findings: Left main: This is a large size vessel, bifurcating into LAD and left circumflex, the proximal segment of the left main has 10-20% plaque with no high-grade stenosis LAD: This is a large size vessel, reaching to the apex, giving rise to a large diagonal branch. The stented segment in the proximal LAD is patent with 10-20% plaque proximally. The flow into the diagonal branch is brisk. There is 20% plaque in the mid LAD with no high-grade stenosis Left circumflex: This is a codominant vessel large in caliber giving rise to 2 obtuse marginal branch and distally giving rise to a PDA. The left circumflex has mild intimal disease in the midsegment of 10-20% with no high-grade stenosis RCA: This is a large codominant vessel bifurcating distally to PDA and PLV. The mid RCA has 20-30% plaque. The acute marginal branch has slow flow with dye hanging suggestive of a ruptured plaque. There is no evidence of high-grade stenosis in the distal RCA. Left Ventriculogram: Not performed Hemodynamics: There was no gradient across the aortic valve, LVEDP was 8-10 mmHg Conclusion: 1. Acutely occluded acute marginal branch with dye hanging suggestive of ruptured plaque 2. Patent stent in the LAD 3. Mild disease in the LAD and left circumflex 4. Normal LVEDP Recommendations: I have recommended to continue medical therapy. I would add clopidogrel to his regimen. The importance of smoking cessation was discussed with the patient. The findings and the recommendations were discussed with the patient and the family and they were in full understanding and agreement. Duration of sedation is 22 minutes.
[2023-05-27] MEDS ORDERED: SODIUM CHLORIDE 0.9% 1,000 ML IV SCH (13:30)
[2023-05-27 13:38] LABS: African American GFR (CKD) >90 (>60 ml/min/1.73 sqM); Anion Gap 10 mmol/L; Blood Urea Nitrogen 13 mg/dL (9-20); Calcium 9.3 mg/dL (8.4-10.2); Carbon Dioxide 23 mmol/L (22-30); Chloride 105 mmol/L (98-107); Glucose 107 mg/dL (74-99); Non-African American GFR(CKD) >90 (>60 ml/min/1.73 sqM); Potassium 4.8 mmol/L (3.5-5.1); Sodium 138 mmol/L (137-145)
[2023-05-27] MEDS: METOPROLOL SUCCINATE (ER) 25 MG TAB.ER.24H PO SCH (14:33)
[2023-05-27 16:53] LABS: Glucose,Whole Blood 114 mg/dL (70-110)
[2023-05-27 19:43] LABS: Glucose,Whole Blood 87 mg/dL (70-110)
[2023-05-27] MEDS: ATORVASTATIN 80 MG TAB PO SCH (20:49)
[2023-05-27] MEDS: traZODone HCL 100 MG TAB PO SCH (20:49)
--- NOTE | 2023-05-27 23:16 | PN ---
PROGRESS NOTE DATE OF SERVICE: 05/27/2023 CHIEF COMPLAINT: Acute MA. HISTORY OF PRESENT ILLNESS: This gentleman is doing well. He received a single stent. He has had no chest pain, shortness of breath, arrhythmias, etc. PHYSICAL EXAMINATION: CHEST: Clear. CARDIAC: Normal. ABDOMEN: Soft, nontender. VITAL SIGNS: Normal. IMPRESSION: 1. NSTEMI. 2. Coronary artery disease. PLAN: No change in program. He will probably go home tomorrow if he is doing well. MMODL / IJN: [id number] /
[2023-05-28] MEDS: SODIUM CHLORIDE 0.9% 1,000 ML in EMPTY BAG 1 BAG IV SCH (01:26)
[2023-05-28] MEDS: GLIMEPIRIDE 1 MG TAB PO SCH (05:20)
[2023-05-28 06:06] LABS: Glucose,Whole Blood 180 mg/dL (70-110)
[2023-05-28] MEDS: ONDANSETRON 4 MG/2 ML VIAL IVP PRN ×2 (07:59→16:32)
[2023-05-28] MEDS ORDERED: CLOPIDOGREL 75 MG TAB PO SCH (09:00)
[2023-05-28] MEDS: METOPROLOL SUCCINATE (ER) 25 MG TAB.ER.24H PO SCH (09:18)
[2023-05-28] MEDS: PANTOPRAZOLE 40 MG TABLET PO SCH (09:18)
[2023-05-28] MEDS: ASPIRIN 81 MG PO SCH (09:18)
[2023-05-28] MEDS ORDERED: DOCUSATE 100 MG CAP PO SCH (11:45)
[2023-05-28 11:46] LABS: Glucose,Whole Blood 123 mg/dL (70-110)
--- NOTE | 2023-05-28 11:49 | P.PN ---
Subjective HISTORY OF PRESENT ILLNESS: 04/25/2023 52-year-old male with past medical history of CAD status post PCI in September [address] Loredo. He also has a history of SVT, diabetes, hypertension and dyslipidemia. Presented to the hospital because of worsening chest heaviness and nausea for last 1-2 weeks. The symptoms have increased in intensity and frequency over last 1 week. Patient reported that he is compliant to his medications and he is currently on aspirin and Plavix. On admission his EKG showed sinus rhythm with no significant ST-T wave changes that are diagnostic for ischemia. He did had elevation of troponin enzymes. Which peaked at 0.24. Hemoglobin 17.5, WBC 15, creatinine 0.8 05/28/2023 Patient underwent cardiac catheterization yesterday with Dr. Loredo revealing acutely occluded acute marginal branch with dye hanging suggestive of ruptured plaque, patent stent in LAD, mild disease in the LAD and left circumflex and normal LVEDP. Plavix was added to the patient's medication regimen. Echocardiogram completed revealing ejection fraction 55-60%, trace MR, trace TR. Patient denies chest pain or pressure. He denies shortness of breath. Vital signs are stable. PHYSICAL EXAM: VITAL SIGNS: Reviewed. GENERAL: Well-developed in no acute distress. NECK: Supple. No JVD or thyromegaly LUNGS: Respirations even and unlabored. Lungs essentially clear to auscultation bilaterally. HEART: Regular rate and rhythm. S1 and S2 heard. EXTREMITIES: Normal range of motion. No clubbing or cyanosis. Peripheral pulses intact. No lower extremity edema ASSESSMENT: NSTEMI, likely secondary to plaque rupture Coronary artery disease with previous stenting of the LAD Essential hypertension Type II Diabetes Dyslipidemia Questionable history of SVT Nicotine dependence, 1 pack per day PLAN: Continue current cardiac medications Plavix has been added to patient's medication regimen Smoking cessation recommended Patient is currently stable for discharge home today from a cardiac standpoint Patient is to follow up in the office post discharge Nurse practitioner note has been reviewed by physician. Signing provider agrees with the documented findings, assessment, and plan of care. Objective - Vital Signs Vital signs: Vital Signs Temp 97.0 F L 05/28/23 08:00 Pulse 94 05/28/23 04:00 Resp 16 05/28/23 08:00 BP 117/68 05/28/23 08:00 Pulse Ox 94 L 05/28/23 08:00 FiO2 Intake & Output 05/27/23 05/28/23 05/28/23 18:59 06:59 18:59 Intake Total 220 540 Balance 220 540 Intake: IV 100 Oral 120 540 Other: Voiding Method Toilet Toilet # Voids 1 3 - Labs CBC & Chem 7: 05/25/23 11:24 05/27/23 10:00 Labs: Abnormal Lab Results - Last 24 Hours (Table) 05/27/23 05/27/23 05/27/23 Range/Units 10:00 10:00 16:53 APTT 39.5 H (22.0-30.0) sec Glucose 107 H (74-99) mg/dL POC Glucose (mg/dL) 114 H (70-110) mg/dL 05/28/23 Range/Units 06:02 APTT (22.0-30.0) sec Glucose (74-99) mg/dL POC Glucose (mg/dL) 180 H (70-110) mg/dL
[2023-05-28 16:28] VITALS: BP 114/81; PULSE 114; RESP 16; TEMP 96.6
--- NOTE | 2023-05-29 21:04 | DS ---
DISCHARGE SUMMARY CHIEF COMPLAINT: Chest pain. HISTORY OF PRESENT ILLNESS AND PHYSICAL EXAMINATION: Details of this man's history and physical can be found in the initial workup. LABORATORY STUDIES: While he was in the hospital, he had laboratory studies, details of which can be found in the laboratory section of his chart. COURSE IN THE HOSPITAL: After admission, he was placed on bedrest. He had serial EKGs and enzymes, which were positive. He was seen by Cardiology and taken for cardiac cath with stenting. Postoperatively, shortness of breath, etc. He is doing well, and it was felt that he could be discharged on the , and he will follow up in my office in the next few days and with Cardiology as well. FINAL DIAGNOSIS: Acute [id number] myocardial infarction. OPERATIONS: Cardiac catheterization with stenting. CONSULTATIONS: Cardiology. CONDITION: He is improved. STIVEN / ANALI: [id number] /
== END 2023-05-28 16:58 | disposition home or self-care (01) | DRG 192 ==
LOC: EC 10:47 → 1SOBS 14:43 → 6NMEDSUR 16:49 → 3SCARD 21:51 → OBSVTOIN 05-27 07:50
PROVIDERS: ADMIT Family Medicine; ATTEND Family Medicine
PROC: B2111ZZ Fluoroscopy of Multiple Coronary Arteries using Low Osmolar Contrast (ICD-10-PCS; 2023-05-27)
PROC: 4A023N7 Measurement of Cardiac Sampling and Pressure, Left Heart, Percutaneous Approach (ICD-10-PCS; principal; 2023-05-27 12:30)
DX: T82.867A Thrombosis due to cardiac prosthetic devices, implants and grafts, initial encounter (principal); I25.110 Atherosclerotic heart disease of native coronary artery with unstable angina pectoris; I10 Essential (primary) hypertension; I25.2 Old myocardial infarction; K21.9 Gastro-esophageal reflux disease without esophagitis; F17.210 Nicotine dependence, cigarettes, uncomplicated; E78.00 Pure hypercholesterolemia, unspecified; I08.3 Combined rheumatic disorders of mitral, aortic and tricuspid valves
CPT/HCPCS: 36415; 71046; 80048; 80053; 80061; 83690; 83735; 84484; 85025; 85610; 85730; 93005; 93306; 93458; 94760; 96365; 96366; 96375; 96376; 99285